=== PATIENT | female | born 1945 | race Caucasian/White ===

== ENCOUNTER 2016-11-04 15:35 | Inpatient (IN) | payer OTHER, MEDICARE ==
[~2016-11-04] VITALS: Ht 162.6 cm; Wt 48.2 kg
[2016-11-04] VITALS (7 sets, daily range): BP systolic 151–185; BP diastolic 46–93; PULSE 60–86; RESP 12–20; TEMP 98.2–99.9; O2SAT 90–100
[~2016-11-04 15:35] MED LIST: ASPI325T PO; ATOR20TA PO; CLIN1CAP6 PO; CYAN100017 PO; D32000CA PO; HYDR12.56 PO; LACT PO; LETR2.5T PO; LISI10 PO; LORA10 PO; NEXI40CA PO; STOO100T PO; metoprolol PO
--- NOTE | 2016-11-04 16:27 | PD ---
HPI Chief Complaint: Skin Problem Time Seen by Provider: 16:13 Travel History International Travel<30 days: No Contact w/Intl Traveler<30days: No Traveled to known affect area: No History of Present Illness HPI Patient is a 71-year-old female with history of breast cancer and lymphedema from her breast cancer and cognitive impairment secondary TIAs, presents to emergency room with complaints of cellulitis. Patient's reports that an hour prior to coming to the emergency room, he noticed increased redness to patient's right upper extremity. Reports no fevers or chills. Reports that she has been acting like her normal self, she has been eating and drinking and has not had any complaints. Reports concern as the redness has progressed fairly quickly over the past hour, reports that the last time she had cellulitis , she became very sick and became septic and required admission to the hospital for this. Patient's was concerned that if her cellulitis progresses, she will eventually become very weak and lethargic. Patient's reports that she has been acting at her baseline at this time, patient with no complaints as well. Patient reports a tetanus is not up-to-date. PFSH Past Medical History Arthritis: Yes Cancer: Yes (R breast) Cardiovascular Problems: Yes (HTN) Chemotherapy: Yes (28 YRS AGO FOR BREAST CA) Cerebrovascular Accident: Yes (TIAS UNKNOWN DATES) Endocrine: No Gastrointestinal Disorders: Yes GERD: Yes (GERD) Genitourinary: No Hypertension: Yes Immune Disorder: No Musculoskeletal: Yes Neurologic: No Psychiatric: Yes (Dementia) Reproductive: No Respiratory: No Radiation Therapy: Yes ?: Not Past Surgical History Abdominal Surgery: No AICD: No Cardiac Surgery: No Ear Surgery: No Endocrine Surgery: No Eye Surgery: Yes (cateracts) Genitourinary Surgery: No Gynecologic Surgery: No Insulin Pump: No Joint Replacement: Yes Oral Surgery: No Pacemaker: No Thoracic Surgery: No Other Surgery: Yes (rt masectomy ) Family History Family History: Negative Social History Alcohol Use: No Tobacco Use: No Substance Use: No Allergies-Medications (Allergen,Severity, Reaction): Coded Allergies: Demerol (Verified Allergy, Intermediate, MAKES MIND FUZZY, 11/04/16) Vancomycin (Verified Allergy, Unknown, 11/04/16) Reported Meds & Prescriptions Reported Meds & Active Scripts Active Probiotic (Lactobacillus Acidophilus) 1 Cap Cap 1 Cap PO TIDAC 10 Days Clindamycin (Clindamycin HCl) 300 Mg Cap 300 Mg PO Q6H 10 Days Review of Systems General / Constitutional: No: Fever Eyes: No: Visual changes HENT: No: Headaches Cardiovascular: No: Chest Pain or Discomfort Respiratory: No: Shortness of Breath Gastrointestinal: No: Abdominal Pain Genitourinary: No: Dysuria Musculoskeletal: No: Pain Skin: Positive Other (redness to right upper extremity), No Rash Neurologic: No: Weakness Psychiatric: No: Depression Endocrine: No: Polydipsia Hematologic/Lymphatic: No: Easy Bruising Physical Exam Narrative GENERAL: No acute distress, nontoxic SKIN: Warm and dry. HEAD: Atraumatic. Normocephalic. EYES: Pupils equal and round. No scleral icterus. No injection or drainage. ENT: No nasal bleeding or discharge. Mucous membranes pink and moist. NECK: Trachea midline. No JVD. CARDIOVASCULAR: Regular rate and rhythm. No murmur appreciated. RESPIRATORY: No accessory muscle use. Clear to auscultation. Breath sounds equal bilaterally. GASTROINTESTINAL: Abdomen soft, non-tender, nondistended. Hepatic and splenic margins not palpable. MUSCULOSKELETAL: No obvious deformities. No clubbing. No cyanosis. Patient with +1 edema to right upper extremity, patient with increased circumferential redness and erythema from right wrist to right shoulder. There is no petechiae or purpura on evaluation. Patient has appropriate pulses to right upper extremity as well as left upper extremity. There is no obvious wounds or bug bites or open skin sores seeping wounds. Data Data Last Documented VS Vital Signs Date Time Temp Pulse Resp B/P Pulse Ox O2 Delivery O2 Flow Rate FiO2 11/04/16 18:19 84 20 185/54 95 11/04/16 15:41 99.9 Orders Complete Blood Count With Diff (11/04/16 16:18) Comprehensive Metabolic Panel (11/04/16 16:18) Blood Culture (11/04/16 16:18) Iv Access Insert/Monitor (11/04/16 16:18) Vancomycin Inj (Vancomycin Inj) (11/04/16 16:30) Tetanus/Diphtheria Tox Adult (Tetanus/Di (11/04/16 16:30) Clindamycin Inj (Cleocin Inj) (11/04/16 17:45) Diphenhydramine Inj (Benadryl Inj) (11/04/16 17:45) Labs Laboratory Tests Test 11/04/16 11/04/16 16:25 17:17 White Blood Count 12.5 TH/MM3 Red Blood Count 4.51 MIL/MM3 Hemoglobin 13.5 GM/DL Hematocrit 40.3 % Mean Corpuscular Volume 89.5 FL Mean Corpuscular Hemoglobin 29.9 PG Mean Corpuscular Hemoglobin 33.5 % Concent Red Cell Distribution Width 13.0 % Platelet Count 316 TH/MM3 Mean Platelet Volume 9.2 FL Neutrophils (%) (Auto) 84.3 % Lymphocytes (%) (Auto) 6.3 % Monocytes (%) (Auto) 6.6 % Eosinophils (%) (Auto) 1.3 % Basophils (%) (Auto) 1.5 % Neutrophils # (Auto) 10.5 TH/MM3 Lymphocytes # (Auto) 0.8 TH/MM3 Monocytes # (Auto) 0.8 TH/MM3 Eosinophils # (Auto) 0.2 TH/MM3 Basophils # (Auto) 0.2 TH/MM3 CBC Comment DIFF FINAL Differential Comment Sodium Level 134 MEQ/L Potassium Level 4.0 MEQ/L Chloride Level 99 MEQ/L Carbon Dioxide Level 25.5 MEQ/L Anion Gap 10 MEQ/L Blood Urea Nitrogen 15 MG/DL Creatinine 0.80 MG/DL Estimat Glomerular Filtration 70 ML/MIN Rate Random Glucose 100 MG/DL Calcium Level 8.3 MG/DL Total Bilirubin 0.4 MG/DL Aspartate Amino Transf 19 U/L (AST/SGOT) Alanine Aminotransferase 32 U/L (ALT/SGPT) Alkaline Phosphatase 96 U/L Total Protein 6.9 GM/DL Albumin 3.4 GM/DL [facility] Medical Decision Making Medical Screen Exam Complete: Yes Emergency Medical Condition: Yes Interpretation(s) Vital Signs Date Time Temp Pulse Resp B/P Pulse Ox O2 Delivery O2 Flow Rate FiO2 11/04/16 15:41 99.9 69 16 173/72 100 Differential Diagnosis Cellulitis, lymphedema, rash Narrative Course Patient is a 71-year-old female with history of breast cancer and history of right-sided mastectomy, presents to emergency room with complaints of right upper extremity erythema and edema. Symptoms began 1 hour prior to presentation to the emergency room. Patient with history of sepsis from cellulitis, has been noticed that her arm became swelling and became concerned as last time she presented with the symptoms, she became very sick. IV line established, CBC, BMP, blood cultures ordered. Patient's tetanus was updated today, will give a dose of IV vancomycin. Patient well-appearing at this time, vital signs stable. If all labs and all studies are unremarkable, plan to discharge home on oral antibiotics with strict instructions to follow-up with PCP in 48 hours Pt develop rash around IV site with vanco administration, vanco d/c'ed and clinda ordered, benadryl ordered as it appears that pt has an allergic reaction to vanco, pt with no airway compromise at this time CBC & BMP Diagram 11/04/16 16:25 11/04/16 17:17 wbc: 12.5 hgb: 13.5 hct: 40.3 Plt: 316 sodium: 134 cl: 99 bun: 15 creatine: 0.8 pt reports that she is feeling better, signs and symptoms of when to return to ER reviewed with patient and in detail pt will return to ER if symptoms progress or worsen pt and thankful for care Diagnosis Primary Impression: Cellulitis Qualified Code: L03.113 - Cellulitis of right upper extremity Patient Instructions: General Instructions Additional Instructions: Please follow up with [facility] from today Return to ER as needed Please return to emergency room immediately if symptoms progress or worsen Follow-up with your primary care doctor as soon as possible Med/Other Pt SpecificInfo: Prescription(s) given Scripts Lactobacillus Acidophilus (Probiotic)1 Cap Cap1 Cap PO TIDAC 10 Days Ref 0 Prov:Priscilla Murphy DO 11/04/16 Clindamycin 300 Mg [id number] Mg PO Q6H 10 Days Ref 0 Prov:Priscilla Murphy DO 11/04/16 Disposition: 01 DISCHARGE HOME Condition: Stable Priscilla Murphy DO Nov 04, 2016 16:27
[2016-11-04] MEDS ORDERED: TETANUS/DIPHTHERIA TOXOID ADULT 0.5 ML VIAL IM ONE (16:30)
[2016-11-04] MEDS ORDERED: VANCOMYCIN INJ 900 MG in SODIUM CHLOR 0.9% 250 ML INJ 250 ML IV ONE (16:30)
[2016-11-04 17:04] LABS: AUTOMATED NEUTROPHIL # 10.5 TH/MM3 (1.8-7.7); BASOPHIL # 0.2 TH/MM3 (0-0.2); BASOPHIL % 1.5 % (0.0-2.0); EOSINOPHIL # 0.2 TH/MM3 (0-0.4); EOSINOPHIL % 1.3 % (0.0-4.0); HEMATOCRIT 40.3 % (35.0-46.0); HEMO FLAGS DIFF FINAL; LYMPH % 6.3 % (9.0-44.0); LYMPHOCYTE # 0.8 TH/MM3 (1.0-4.8); MEAN CELL VOLUME 89.5 FL (80.0-100.0); MEAN CORPUSCULAR HEMOGLOBIN 29.9 PG (27.0-34.0); MEAN CORPUSCULAR HGB CONC 33.5 % (32.0-36.0); MONO % 6.6 % (0.0-8.0); NEUT % 84.3 % (16.0-70.0); PLATELET COUNT 316 TH/MM3 (150-450); RED BLOOD COUNT 4.51 MIL/MM3 (4.00-5.30); WHITE BLOOD COUNT 12.5 TH/MM3 (4.0-11.0)
[2016-11-04] MEDS ORDERED: diphenhydrAMINE HCL 50 MG/ML VIAL IV PUSH ONE (17:45)
[2016-11-04] MEDS ORDERED: CLINDAMYCIN INJ 600 MG in SODIUM CHLORIDE 0.9% INJ 100 ML IV ONE (17:45)
[2016-11-04 17:50] LABS: CHLORIDE 99 MEQ/L (98-107); SODIUM (NA) 134 MEQ/L (136-145)
[2016-11-04 17:54] LABS: ANION GAP 10 MEQ/L (5-15); BICARBONATE 25.5 MEQ/L (21.0-32.0); BLOOD UREA NITROGEN 15 MG/DL (7-18)
[2016-11-04 17:57] LABS: ALT (GPT) 32 U/L (10-53); AST (GOT) 19 U/L (15-37); GLOMERULAR FILTRATION RATE 70 ML/MIN (>89)
[2016-11-04 17:59] LABS: TOTAL BILIRUBIN ADULT 0.4 MG/DL (0.2-1.0)
[2016-11-04 18:00] LABS: ALKALINE PHOSPHATASE 96 U/L (45-117)
[2016-11-04] MEDS ORDERED: LACTCAP8 PO (18:53)
[2016-11-04] MEDS ORDERED: CLIN1CAP6 PO (18:53)
[2016-11-04] MEDS ORDERED: BISACODYL 10 MG SUPP PR PRN (19:30)
[2016-11-04] MEDS ORDERED: ONDANSETRON HCL 4 MG/2 ML VIAL IVP PRN (19:30)
[2016-11-04] MEDS ORDERED: ACETAMINOPHEN 325 MG TAB PO PRN (19:30)
[2016-11-04] MEDS ORDERED: ACETAMINOPHEN/HYDROcodone 325 MG/10 MG TAB PO PRN (19:30)
[2016-11-04] MEDS ORDERED: ACETAMINOPHEN/HYDROcodone 325 MG/5 MG TAB PO PRN (19:30)
[2016-11-04] MEDS ORDERED: SODIUM CHLORIDE 0.9% FLUSH 5 ML FLUSH FLUSH PRN (19:30)
[2016-11-04] MEDS: CEFEPIME INJ 1,000 MG in SODIUM CHLORIDE 0.9% INJ 100 ML IV SCH (20:24)
[2016-11-04] MEDS: SODIUM CHLOR 0.9% 1000 ML INJ 1,000 ML IV SCH (21:25)
[2016-11-04] MEDS: SODIUM CHLORIDE 0.9% FLUSH 5 ML FLUSH FLUSH SCH (21:25)
[2016-11-05] VITALS: BP 142/69; PULSE 55; RESP 18; TEMP 98.1; O2SAT 97
[2016-11-05] MEDS: CLINDAMYCIN INJ 900 MG in SODIUM CHLORIDE 0.9% INJ 100 ML IV SCH ×2 (01:45→10:00)
[2016-11-05 04:00] VITALS: BP 139/67; PULSE 53; RESP 16; TEMP 98.3; O2SAT 98
[2016-11-05] MEDS: SODIUM CHLOR 0.9% 1000 ML INJ 1,000 ML IV SCH (06:14)
[2016-11-05] MEDS: SODIUM CHLORIDE 0.9% FLUSH 5 ML FLUSH FLUSH SCH (07:57)
[2016-11-05] MEDS: CEFEPIME INJ 1,000 MG in SODIUM CHLORIDE 0.9% INJ 100 ML IV SCH ×2 (07:57→08:00)
[2016-11-05 08:00] VITALS: BP 170/55; PULSE 54; RESP 16; TEMP 96.6; O2SAT 100
[2016-11-05 08:01] LABS: AUTOMATED NEUTROPHIL # 3.7 TH/MM3 (1.8-7.7); BASOPHIL % 0.6 % (0.0-2.0); EOSINOPHIL # 0.2 TH/MM3 (0-0.4); EOSINOPHIL % 3.1 % (0.0-4.0); HEMATOCRIT 36.1 % (35.0-46.0); HEMO FLAGS DIFF FINAL; LYMPH % 22.4 % (9.0-44.0); LYMPHOCYTE # 1.4 TH/MM3 (1.0-4.8); MEAN CELL VOLUME 90.3 FL (80.0-100.0); MEAN CORPUSCULAR HEMOGLOBIN 30.3 PG (27.0-34.0); MEAN CORPUSCULAR HGB CONC 33.6 % (32.0-36.0); MONO % 15.6 % (0.0-8.0); NEUT % 58.3 % (16.0-70.0); PLATELET COUNT 322 TH/MM3 (150-450); RED CELL DISTRIBUTION WIDTH 12.6 % (11.6-17.2); WHITE BLOOD COUNT 6.3 TH/MM3 (4.0-11.0)
[2016-11-05 08:04] LABS: CHLORIDE 101 MEQ/L (98-107); POTASSIUM 3.6 MEQ/L (3.5-5.1); SODIUM (NA) 137 MEQ/L (136-145)
[2016-11-05 08:10] VITALS: PULSE 61
[2016-11-05 08:10] LABS: ANION GAP 9 MEQ/L (5-15); BICARBONATE 26.9 MEQ/L (21.0-32.0); BLOOD UREA NITROGEN 12 MG/DL (7-18)
[2016-11-05 08:12] LABS: ALT (GPT) 27 U/L (10-53)
[2016-11-05 08:13] LABS: AST (GOT) 18 U/L (15-37); GLOMERULAR FILTRATION RATE 83 ML/MIN (>89)
[2016-11-05 08:14] LABS: TOTAL BILIRUBIN ADULT 0.5 MG/DL (0.2-1.0)
[2016-11-05 08:15] LABS: ALKALINE PHOSPHATASE 80 U/L (45-117)
[2016-11-05] MEDS ORDERED: HYDR12.57 PO (11:20)
[2016-11-05] MEDS ORDERED: ASPI325T PO (11:20)
[2016-11-05] MEDS ORDERED: VITA10003 PO (11:20)
[2016-11-05] MEDS ORDERED: [UNRECOGNIZED DRUG - CODE] PO (11:20)
[2016-11-05] MEDS ORDERED: ATOR20TA15 PO (11:20)
[2016-11-05] MEDS ORDERED: LETR2.5T PO (11:20)
[2016-11-05] MEDS ORDERED: NEXI40CA PO (11:20)
[2016-11-05] MEDS ORDERED: METO50TA11 PO (11:20)
[2016-11-05] MEDS ORDERED: STOO100C (11:20)
[2016-11-05 12:00] VITALS: BP 142/63; PULSE 56; RESP 16; TEMP 97.7; O2SAT 97
--- NOTE | 2016-11-05 14:19 | HHI.HP ---
[facility] Chuck Cota MD Admission Diagnosis Right arm cellulitis Diagnoses: Chief Complaint: Right upper extremity erythema Travel History International Travel<30 Days: No Contact w/Intl Traveler <30 Da: No Traveled to Known Affected Are: No History of Present Illness Patient is a 71-year-old female with a history of lymphedema in the right arm secondary to breast cancer and mastectomy. Patient had increasing redness and edema in the right arm. There were no fevers or chills. She had a mild leukocytosis and was observed overnight for treatment of this after antibiotics in the emergency room were given. Remarkably the patient is improved. Patient says her arm is much better overnight. No fevers or chills. Leukocytosis is better. She would like to go home Review of Systems ROS Limitations: Poor Historian (due to dementia) Constitutional: DENIES: Diaphoretic episodes, Fatigue, Fever, Weight gain, Weight loss, Chills, Dizziness, Change in appetite, Night Sweats Endocrine: DENIES: Abnorml menstrual pattern, Heat/cold intolerance, Polydipsia , Polyuria, Polyphagia Eyes: DENIES: Blurred vision, Diplopia, Eye inflammation, Eye pain, Vision loss , Photosensitivity, Double Vision Ears, nose, mouth, throat: DENIES: Tinnitus, Hearing loss, Vertigo, Nasal discharge, Oral lesions, Throat pain, Hoarseness, Ear Pain, Running Nose, Epistaxis, Sinus Pain, Toothache, Odynophagia Respiratory: DENIES: Apneas, Cough, Snoring, Wheezing, Hemoptysis, Sputum production, Shortness of breath Cardiovascular: DENIES: Chest pain, Palpitations, Syncope, Dyspnea on Exertion , PND, Lower Extremity Edema, Orthopnea, Claudication Gastrointestinal: DENIES: Abdominal pain, Black stools, Bloody stools, Constipation, Diarrhea, Nausea, Vomiting, Difficulty Swallowing, Anorexia Genitourinary: DENIES: Abnormal vaginal bleeding, Dysmenorrhea, Dyspareunia, Sexual dysfunction, Urinary frequency, Urinary incontinence, Urgency, Hematuria , Dysuria, Nocturia, Vaginal discharge Musculoskeletal: DENIES: Joint pain, Muscle aches, Stiffness, Joint Swelling, Back pain, Neck pain Integumentary: DENIES: Abnormal pigmentation, Pruritus, Rash, Nail changes, Breast masses, Breast skin changes, Nipple discharge Hematologic/lymphatic: DENIES: Bruising, Lymphadenopathy Immunologic/allergic: DENIES: Eczema, Urticaria Neurologic: DENIES: Abnormal gait, Headache, Localized weakness, Paresthesias, Seizures, Speech Problems, Tremor, Poor Balance Psychiatric: COMPLAINS OF: Confusion (at baseline due to dementia), DENIES: Anxiety, Mood changes, Depression, Hallucinations, Agitation, Suicidal Ideation , Homicidal Ideation, Delusions Past Family Social History Past Medical History Breast cancer with right upper extremity lymphedema Vascular dementia Past Surgical History Mastectomy Cataracts Reported Medications Reviewed in the medical record Allergies: Coded Allergies: Demerol (Verified Allergy, Intermediate, MAKES MIND FUZZY, 11/04/16) Vancomycin (Verified Allergy, Unknown, 11/04/16) Active Ordered Medications Reviewed in the medical record Family History Family history of hypertension Social History , , no tobacco or alcohol shoes Physical Exam Vital Signs Vital Signs Date Time Temp Pulse Resp B/P Pulse Ox O2 Delivery O2 Flow Rate FiO2 11/05/16 12:00 97.7 56 16 142/63 97 11/05/16 08:00 96.6 54 16 170/55 100 11/05/16 04:00 98.3 53 16 139/67 98 11/05/16 00:00 98.1 55 18 142/69 97 11/04/16 21:31 98.2 65 12 167/62 90 11/04/16 21:30 60 11/04/16 19:54 77 20 157/59 95 11/04/16 18:19 84 20 185/54 95 11/04/16 17:39 86 20 151/93 96 11/04/16 17:03 64 20 151/46 96 11/04/16 15:41 99.9 69 16 173/72 100 Physical Exam GENERAL: This is a well-nourished, well-developed patient, in no apparent distress. SKIN: No rashes, ecchymoses or lesions. Cool and dry. HEAD: Atraumatic. Normocephalic. No temporal or scalp tenderness. EYES: Pupils equal round and reactive. Extraocular motions intact. No scleral icterus. No injection or drainage. ENT: Nose without bleeding, purulent drainage or septal hematoma. Throat without erythema, tonsillar hypertrophy or exudate. Uvula midline. Airway patent. NECK: Trachea midline. No JVD or lymphadenopathy. Supple, nontender, no meningeal signs. CARDIOVASCULAR: Regular rate and rhythm without murmurs, gallops, or rubs. RESPIRATORY: Clear to auscultation. Breath sounds equal bilaterally. No wheezes , rales, or rhonchi. GASTROINTESTINAL: Abdomen soft, non-tender, nondistended. No hepato-splenomegaly , or palpable masses. No guarding. MUSCULOSKELETAL: Extremities without clubbing, cyanosis, or edema. No joint tenderness, effusion, or edema noted. No calf tenderness. Negative Homans sign bilaterally. NEUROLOGICAL: Awake and alert. Cranial nerves II through XII intact. Motor and sensory grossly within normal limits. Five out of 5 muscle strength in all muscle groups. Normal speech. Laboratory Laboratory Tests Test 11/04/16 11/04/16 11/05/16 16:25 17:17 06:40 White Blood Count 12.5 6.3 Red Blood Count 4.51 4.00 Hemoglobin 13.5 12.1 Hematocrit 40.3 36.1 Mean Corpuscular Volume 89.5 90.3 Mean Corpuscular Hemoglobin 29.9 30.3 Mean Corpuscular Hemoglobin 33.5 33.6 Concent Red Cell Distribution Width 13.0 12.6 Platelet Count 316 322 Mean Platelet Volume 9.2 8.7 Neutrophils (%) (Auto) 84.3 58.3 Lymphocytes (%) (Auto) 6.3 22.4 Monocytes (%) (Auto) 6.6 15.6 Eosinophils (%) (Auto) 1.3 3.1 Basophils (%) (Auto) 1.5 0.6 Neutrophils # (Auto) 10.5 3.7 Lymphocytes # (Auto) 0.8 1.4 Monocytes # (Auto) 0.8 1.0 Eosinophils # (Auto) 0.2 0.2 Basophils # (Auto) 0.2 0.0 CBC Comment DIFF FINAL DIFF FINAL Differential Comment Sodium Level 134 137 Potassium Level 4.0 3.6 Chloride Level 99 101 Carbon Dioxide Level 25.5 26.9 Anion Gap 10 9 Blood Urea Nitrogen 15 12 Creatinine 0.80 0.69 Estimat Glomerular Filtration 70 83 Rate Random Glucose 100 83 Calcium Level 8.3 8.5 Total Bilirubin 0.4 0.5 Aspartate Amino Transf 19 18 (AST/SGOT) Alanine Aminotransferase 32 27 (ALT/SGPT) Alkaline Phosphatase 96 80 Total Protein 6.9 6.4 Albumin 3.4 3.2 Date/Time Procedure Status Source Growth 11/04/16 16:25 Aerobic Blood Culture - Preliminary Resulted Blood Peripheral NO GROWTH IN 1 DAY 11/04/16 16:25 Anaerobic Blood Culture - Preliminary Resulted Blood Peripheral NO GROWTH IN 1 DAY Result Diagram: 11/05/16 0640 11/05/16 0640 Assessment and Plan Problem List: (1) Cellulitis ICD Code: L03.90 Status: Acute Plan: Continue clindamycin by mouth Follow-up with primary care provider Leukocytosis improved Erythema and edema improved (2) Dementia ICD Code: F03.90 Status: Acute Plan: Moderate dementia. Patient will continue with continue care by her healthcare surrogate which is her spouse. Assessment and Plan Discharge home Activity unrestricted Diet heart healthy Code Status DNR Problem Qualifiers (1) Cellulitis: Qualified Code: L03.113 - Cellulitis of right upper extremity Bozena Taveras MD Nov 05, 2016 14:19
--- NOTE | 2016-11-05 14:22 | HHI.DCPOC ---
Discharge Care Plan Diagnosis: (1) Cellulitis Goals to Promote Your Health * To prevent worsening of your condition and complications * To maintain your health at the optimal level Directions to Meet Your Goals Take your medications as prescribed Follow your dietary instruction Follow activity as directed Keep your appointments as scheduled Take your immunizations and boosters as scheduled If your symptoms worsen call your PCP, if no PCP go to Urgent Care Center or Emergency Room Smoking is Dangerous to Your Health. Avoid second hand smoke Call the 24-hour hour crisis hotline for domestic abuse at Bozena Taveras MD Nov 05, 2016 14:22
[2016-11-05] MEDS ORDERED: LACTCAP8 PO (15:14)
[2016-11-05] MEDS ORDERED: CLIN1CAP6 PO (15:14)
== END 2016-11-05 15:53 | disposition home or self-care (01) | DRG 603 ==
LOC: PHED 15:35 → PHEDA 19:16 → PH3A 20:59
PROVIDERS: ADMIT Hospitalist; ATTEND Hospitalist
DX: L03.113 Cellulitis of right upper limb (principal); F01.50 Vascular dementia, unspecified severity, without behavioral disturbance, psychotic disturbance, mood disturbance, and anxiety; I10 Essential (primary) hypertension; I97.2 Postmastectomy lymphedema syndrome; Z85.3 Personal history of malignant neoplasm of breast; Z86.73 Personal history of transient ischemic attack (TIA), and cerebral infarction without residual deficits; Z92.21 Personal history of antineoplastic chemotherapy; Z88.1 Allergy status to other antibiotic agents; Z88.5 Allergy status to narcotic agent
CPT/HCPCS: 80053; 85025; 87040; 90471; 90714; 96365; 96367; 96375; J0692; J1200; J3370; J7030; J7050

== ENCOUNTER 2016-11-14 17:18 | Inpatient (IN) | payer OTHER, MEDICARE ==
[~2016-11-14] VITALS: Ht 162.6 cm; Wt 60.4 kg
[~2016-11-14 17:18] MED LIST changes: -ATOR20TA PO; +ATOR20TA15 PO; -CYAN100017 PO; -D32000CA PO; -HYDR12.56 PO; +HYDR12.57 PO; -LACT PO; +LACTCAP8 PO; -LISI10 PO; -LORA10 PO; +METO50TA11 PO; +STOO100C; -STOO100T PO; +VITA10003 PO; +[UNRECOGNIZED DRUG - CODE] PO; -metoprolol PO
[2016-11-14 17:32] VITALS: PULSE 65; RESP 16; TEMP 99.5; O2SAT 99
[2016-11-14] MEDS ORDERED: PIPERACIL-TAZO 4.5 GM PREMIX 100 ML IV STA (17:46)
[2016-11-14 17:50] VITALS: BP 193/71
--- NOTE | 2016-11-14 17:53 | PD ---
HPI Chief Complaint: Skin Problem Time Seen by Provider: 17:37 Travel History International Travel<30 days: No Contact w/Intl Traveler<30days: No Traveled to known affect area: No History of Present Illness HPI This 71-year-old female presents with complaint of redness of her right arm. She had a mastectomy, chemotherapy and radiation for breast cancer 27 years ago. Since then she has had lymphedema of her right arm. She had an ultrasound in July 2016 which was negative for DVT. She was seen in the emergency department on November 04 with redness of the arm. She was given Zosyn and vancomycin. She had a reaction to the vancomycin was stopped. Clindamycin was also given. She got better overnight and was released after one day of hospitalization. The arm seemed okay. She was continued on the clindamycin and wouldn't finish her course of clindamycin tomorrow. Her says that today she redness has returned. He is not aware of fever or chills. She is not complaining of pain. She does have a history of cognitive impairment PFSH Past Medical History Arthritis: Yes Autoimmune Disease: No Anxiety: No Depression: No Heart Rhythm Problems: No Cancer: Yes (R breast) Cardiovascular Problems: Yes (HTN) High Cholesterol: No Chemotherapy: Yes (28 YRS AGO FOR BREAST CA) Congestive Heart Failure: No Cerebrovascular Accident: Yes Diabetes: No Diminished Hearing: No Endocrine: No Gastrointestinal Disorders: Yes GERD: Yes (GERD) Genitourinary: No Hiatal Hernia: No Hypertension: Yes Immune Disorder: No Musculoskeletal: Yes Neurologic: Yes (dementia) Psychiatric: Yes (Dementia) Reproductive: No Respiratory: No Migraines: No Radiation Therapy: Yes Seizures: No Thyroid Disease: No Ulcer: No ?: Not Past Surgical History Abdominal Surgery: No AICD: No Arteriovenous Shunt: No Cardiac Surgery: No Ear Surgery: No Endocrine Surgery: No Eye Surgery: Yes (cateracts) Genitourinary Surgery: No Gynecologic Surgery: No Insulin Pump: No Joint Replacement: Yes Oral Surgery: No Pacemaker: No Thoracic Surgery: No Other Surgery: Yes (rt masectomy ) Social History Alcohol Use: No Tobacco Use: No Substance Use: No Allergies-Medications (Allergen,Severity, Reaction): Coded Allergies: Demerol (Verified Allergy, Intermediate, MAKES MIND FUZZY, 11/14/16) Vancomycin (Verified Allergy, Unknown, 11/14/16) Reported Meds & Prescriptions Reported Meds & Active Scripts Active Probiotic (Lactobacillus Acidophilus) 1 Cap Cap 1 Cap PO TIDAC 10 Days Clindamycin (Clindamycin HCl) 300 Mg Cap 300 Mg PO Q6H 10 Days Reported Stool Softener (Docusate Sodium) 100 Mg Cap BID Vitamin D-3 (Cholecalciferol) 1,000 Unit Tab 2,000 Units PO DAILY B-12 (Cobalamine Combinations) 100-5,000 Mcg Subl 1,000 Mcg PO DAILY Aspirin 325 Mg Tab 325 Mg PO DAILY Atorvastatin (Atorvastatin Calcium) 20 Mg Tab 20 Mg PO HS Metoprolol Succinate ER 24 HR (Metoprolol Succinate) 50 Mg Tab 50 Mg PO DAILY Hydrochlorothiazide 12.5 Mg Cap 12.5 Mg PO DAILY Nexium (Esomeprazole DR) 40 Mg Capdr 40 Mg PO DAILY Letrozole 2.5 Mg Tab PO DAILY Review of Systems General / Constitutional: No: Fever, Chills Eyes: No: Diploplia HENT: No: Headaches Cardiovascular: No: Chest Pain or Discomfort Respiratory: No: Cough Gastrointestinal: No: Nausea Genitourinary: No: Urgency, Frequency Musculoskeletal: No: Myalgias Skin: Positive Rash Hematologic/Lymphatic: No: Easy Bruising Physical Exam Narrative GENERAL: Well-developed female SKIN: Warm and dry. Return to the skin of the right arm from the wrist and area above the elbow. There is no purulent drainage. It is warm to palpation. I do not feel any adenopathy. There has been a right mastectomy HEAD: Atraumatic. Normocephalic. EYES: Pupils equal and round. No scleral icterus. No injection or drainage. ENT: No nasal bleeding or discharge. Mucous membranes pink and moist. NECK: Trachea midline. No JVD. CARDIOVASCULAR: Regular rate and rhythm. No murmur appreciated. RESPIRATORY: No accessory muscle use. Clear to auscultation. Breath sounds equal bilaterally. GASTROINTESTINAL: Abdomen soft, non-tender, nondistended. Hepatic and splenic margins not palpable. MUSCULOSKELETAL: No obvious deformities. No clubbing. No cyanosis. No edema. NEUROLOGICAL: Awake and alert. No obvious cranial nerve deficits. Motor grossly within normal limits. Speech is limited PSYCHIATRIC: ; insight and judgment are limited, her answers most questions Data Data Last Documented VS Vital Signs Date Time Temp Pulse Resp B/P Pulse Ox O2 Delivery O2 Flow Rate FiO2 1/24/17 18:37 96 Room Air 11/14/16 17:50 193/71 11/14/16 17:32 99.5 65 16 Orders Complete Blood Count With Diff (11/14/16 17:46) Comprehensive Metabolic Panel (11/14/16 17:46) Urinalysis - C+S If Indicated (11/14/16 17:46) Blood Culture (11/14/16 17:46) Blood Glucose (11/14/16 17:46) Ecg Monitoring (11/14/16 17:46) Iv Access Insert/Monitor (11/14/16 17:46) Oximetry (11/14/16 17:46) Oxygen Administration (11/14/16 17:46) Piperacil-Tazo 4.5 Gm Premix (Zosyn 4.5 (11/14/16 17:46) Sodium Chlor 0.9% 1000 Ml Inj (Ns 1000 M (11/14/16 18:00) Admit Order (Ed Use Only) (11/14/16 19:24) Admit To Inpatient (11/14/16 ) Vital Signs (Adult) Q4H (11/14/16 19:24) Activity Oob With Assistance (11/14/16 19:24) 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 .CONTINUOUS (11/14/16 19:24) Diet Heart Healthy (11/15/16 Breakfast) Sodium Chloride 0.9% Flush (Ns Flush) (11/14/16 19:30) Sodium Chloride 0.9% Flush (Ns Flush) (11/14/16 21:00) Basic Metabolic Panel (Bmp) (11/15/16 06:00) Complete Blood Count With Diff (11/15/16 06:00) Case Management Consult (11/14/16 19:24) Naloxone Inj (Narcan Inj) (11/14/16 19:30) Inpatient Certification (11/14/16 ) Labs Laboratory Tests Test 11/14/16 18:10 White Blood Count 13.3 TH/MM3 Red Blood Count 4.47 MIL/MM3 Hemoglobin 13.9 GM/DL Hematocrit 40.4 % Mean Corpuscular Volume 90.2 FL Mean Corpuscular Hemoglobin 31.1 PG Mean Corpuscular Hemoglobin 34.5 % Concent Red Cell Distribution Width 12.6 % Platelet Count 422 TH/MM3 Mean Platelet Volume 8.4 FL Neutrophils (%) (Auto) 81.0 % Lymphocytes (%) (Auto) 5.5 % Monocytes (%) (Auto) 7.4 % Eosinophils (%) (Auto) 1.4 % Basophils (%) (Auto) 4.7 % Neutrophils # (Auto) 10.8 TH/MM3 Lymphocytes # (Auto) 0.7 TH/MM3 Monocytes # (Auto) 1.0 TH/MM3 Eosinophils # (Auto) 0.2 TH/MM3 Basophils # (Auto) 0.6 TH/MM3 CBC Comment AUTO DIFF Differential Total Cells 100 Counted Neutrophils % (Manual) 78 % Lymphocytes % 12 % Monocytes % 6 % Eosinophils % 3 % Basophils % 1 % Neutrophils # (Manual) 10.4 TH/MM3 Nucleated Red Blood Cells 1 /100 WBC Differential Comment FINAL DIFF MANUAL Platelet Estimate NORMAL Platelet Morphology Comment CLUMPED Red Cell Morphology Comment NORMAL Sodium Level 134 MEQ/L Potassium Level 4.8 MEQ/L Chloride Level 97 MEQ/L Carbon Dioxide Level 27.2 MEQ/L Anion Gap 10 MEQ/L Blood Urea Nitrogen 18 MG/DL Creatinine 0.77 MG/DL Estimat Glomerular Filtration 73 ML/MIN Rate Random Glucose 82 MG/DL Calcium Level 8.6 MG/DL Total Bilirubin 0.4 MG/DL Aspartate Amino Transf 32 U/L (AST/SGOT) Alanine Aminotransferase 30 U/L (ALT/SGPT) Alkaline Phosphatase 99 U/L Total Protein 7.6 GM/DL Albumin 3.8 GM/DL MDM Medical Decision Making Medical Screen Exam Complete: Yes Emergency Medical Condition: Yes Medical Record Reviewed: Yes Differential Diagnosis Differential includes cellulitis the left arm. Narrative Course This developed while the patient is on clindamycin so represents a treatment failure. White count is elevated at 13,000 Diagnosis Primary Impression: Cellulitis of right arm Admitting Information Admitting Physician Requests: Admit Srinivasan Madrigal MD Nov 14, 2016 17:53
[2016-11-14 18:28] LABS: AUTOMATED NEUTROPHIL # 10.8 TH/MM3 (1.8-7.7); BASOPHIL # 0.6 TH/MM3 (0-0.2); BASOPHIL % 4.7 % (0.0-2.0); EOSINOPHIL # 0.2 TH/MM3 (0-0.4); EOSINOPHIL % 1.4 % (0.0-4.0); HEMATOCRIT 40.4 % (35.0-46.0); LYMPH % 5.5 % (9.0-44.0); LYMPHOCYTE # 0.7 TH/MM3 (1.0-4.8); MEAN CELL VOLUME 90.2 FL (80.0-100.0); MEAN CORPUSCULAR HEMOGLOBIN 31.1 PG (27.0-34.0); MEAN CORPUSCULAR HGB CONC 34.5 % (32.0-36.0); MONO % 7.4 % (0.0-8.0); PLATELET COUNT 422 TH/MM3 (150-450); RED BLOOD COUNT 4.47 MIL/MM3 (4.00-5.30); RED CELL DISTRIBUTION WIDTH 12.6 % (11.6-17.2); WHITE BLOOD COUNT 13.3 TH/MM3 (4.0-11.0)
[2016-11-14 18:32] LABS: HEMO FLAGS AUTO DIFF
[2016-11-14 18:37] VITALS: O2SAT 96
[2016-11-14 18:37] LABS: CHLORIDE 97 MEQ/L (98-107); SODIUM (NA) 134 MEQ/L (136-145)
[2016-11-14 18:40] LABS: ANION GAP 10 MEQ/L (5-15); BICARBONATE 27.2 MEQ/L (21.0-32.0)
[2016-11-14 18:41] LABS: BLOOD UREA NITROGEN 18 MG/DL (7-18)
[2016-11-14 18:43] LABS: ALT (GPT) 30 U/L (10-53)
[2016-11-14 18:44] LABS: AST (GOT) 32 U/L (15-37); GLOMERULAR FILTRATION RATE 73 ML/MIN (>89)
[2016-11-14 18:45] LABS: TOTAL BILIRUBIN ADULT 0.4 MG/DL (0.2-1.0)
[2016-11-14] MEDS: SODIUM CHLOR 0.9% 1000 ML INJ 1,000 ML IV SCH (18:45)
[2016-11-14 18:46] LABS: ALKALINE PHOSPHATASE 99 U/L (45-117)
[2016-11-14 19:02] LABS: POTASSIUM 4.8 MEQ/L (3.5-5.1)
[2016-11-14 19:05] LABS: BASOPHILS 1 % (0-2); CORRECTED NUCLEATED RBC 1 /100 WBC (0-0); EOSINOPHILS 3 % (0-4); NEUTROPHIL # MANUAL DIFF 10.4 TH/MM3 (1.8-7.7); PLATELET ESTIMATE SMEAR NORMAL (NORMAL); PLATELET MORPHOLOGY CLUMPED (NORMAL); POLYS (SEG NEUTROPHILS) 78 % (16-70); SCAN/DIFF FINAL DIFF MANUAL; WBC DIFF SAMPLE 100
[2016-11-14 19:30] VITALS: BP 172/76; PULSE 98; RESP 20; TEMP 102.3; O2SAT 96
[2016-11-14] MEDS ORDERED: NALOXONE HCL 0.4 MG/ML AMP IV PRN (19:30)
[2016-11-14] MEDS ORDERED: SODIUM CHLORIDE 0.9% FLUSH 5 ML FLUSH FLUSH PRN (19:30)
[2016-11-14] MEDS ORDERED: LEVOFLOXACIN 750 MG PREMIX INJ 150 ML IV SCH (20:00)
[2016-11-14] MEDS: ATORVASTATIN 20 MG TAB PO SCH (20:11)
[2016-11-14] MEDS ORDERED: ACETAMINOPHEN 325 MG TAB PO ONE (20:15)
[2016-11-14 20:51] LABS: BLOOD, URINE NEG (NEG); GLUCOSE,URINE NEG (NEG); KETONE, URINE NEG (NEG); NITRITE,URINE NEG (NEG)
[2016-11-14 20:58] LABS: METHOD OF COLLECTION CATH; URINE COLOR YELLOW (YELLW/STRAW)
[2016-11-14 21:00] LABS: MUCUS URINE OCC /lpf (OCC)
[2016-11-14] MEDS: SODIUM CHLORIDE 0.9% FLUSH 5 ML FLUSH FLUSH SCH (21:00)
[2016-11-14 21:05] LABS: COMMENT (UR) CATH-CULTURE IND; CULTURE IF INDICATED CATH CULTURE IND
[2016-11-14 22:00] VITALS: BP 148/70; PULSE 68; RESP 24; O2SAT 100
[2016-11-14 23:53] VITALS: BP 129/82; PULSE 64; RESP 20; O2SAT 98
[2016-11-15] VITALS (8 sets, daily range): BP systolic 115–158; BP diastolic 34–65; PULSE 53–58; RESP 14–20; TEMP 97.2–99.3; O2SAT 96–100
[2016-11-15] MEDS: PIPERACIL-TAZO 4.5 GM PREMIX 100 ML IV SCH ×4 (01:29→16:59)
[2016-11-15] MEDS: SODIUM CHLOR 0.9% 1000 ML INJ 1,000 ML IV SCH ×3 (06:14→19:28)
[2016-11-15 06:57] LABS: AUTOMATED NEUTROPHIL # 11.6 TH/MM3 (1.8-7.7); BASOPHIL # 0.6 TH/MM3 (0-0.2); BASOPHIL % 3.7 % (0.0-2.0); EOSINOPHIL # 0.1 TH/MM3 (0-0.4); EOSINOPHIL % 0.6 % (0.0-4.0); HEMATOCRIT 40.8 % (35.0-46.0); HEMO FLAGS AUTO DIFF; LYMPH % 12.5 % (9.0-44.0); LYMPHOCYTE # 1.9 TH/MM3 (1.0-4.8); MEAN CELL VOLUME 90.2 FL (80.0-100.0); MEAN CORPUSCULAR HEMOGLOBIN 29.4 PG (27.0-34.0); MEAN CORPUSCULAR HGB CONC 32.6 % (32.0-36.0); MONO % 7.8 % (0.0-8.0); NEUT % 75.4 % (16.0-70.0); PLATELET COUNT 368 TH/MM3 (150-450); RED BLOOD COUNT 4.52 MIL/MM3 (4.00-5.30); RED CELL DISTRIBUTION WIDTH 12.7 % (11.6-17.2); WHITE BLOOD COUNT 15.4 TH/MM3 (4.0-11.0)
[2016-11-15 07:02] LABS: BICARBONATE 23.5 MEQ/L (21.0-32.0); POTASSIUM 3.8 MEQ/L (3.5-5.1)
[2016-11-15 07:46] LABS: BANDS 2 % (0-6); EOSINOPHILS 1 % (0-4); NEUTROPHIL # MANUAL DIFF 12.5 TH/MM3 (1.8-7.7); POLYS (SEG NEUTROPHILS) 79 % (16-70); SCAN/DIFF FINAL DIFF MANUAL; WBC DIFF SAMPLE 100
[2016-11-15] MEDS: LACTOBACILLUS ACIDOPHILUS TAB PO SCH ×4 (08:00→16:59)
[2016-11-15] MEDS: SODIUM CHLORIDE 0.9% FLUSH 5 ML FLUSH FLUSH SCH ×2 (09:00→19:26)
[2016-11-15] MEDS: ASPIRIN 325 MG TAB PO SCH (09:27)
[2016-11-15] MEDS: PANTOPRAZOLE SOD 40 MG DELAYED RELEASE TAB PO SCH (09:27)
[2016-11-15] MEDS: METOPROLOL SUCCINATE 50 MG EXTENDED RELEASE TAB PO SCH (09:27)
--- NOTE | 2016-11-15 16:47 | HHI.HP ---
[facility] Service [facility] Primary Care Physician Chuck Cota MD Admission Diagnosis CELLULITIS R ARM Diagnoses: (1) Sepsis Diagnosis: Principal (2) Cellulitis of right arm Diagnosis: Principal (3) Failure of outpatient treatment Diagnosis: Principal Chief Complaint: arm infection Travel History International Travel<30 Days: No Contact w/Intl Traveler <30 Da: No Traveled to Known Affected Are: No Sepsis Criteria SIRS Criteria (2 or more): Temp > 100.9 or < 96.8, WBC > 86164, < 4000 or > 10 % bands Sepsis Criteria (SIRS+source): Infect source susp/known Criteria Outcome: Meets sepsis criteria History of Present Illness 71-year-old female with history of right mastectomy due to breast cancer and lymphedema in the right arm and vascular dementia is admitted for right arm cellulitis. The patient was recently admitted on 11/04/16 and prior to that in July for cellulitis of the right upper extremity. When the patient was last hospitalized she received a dose of cefepime, vancomycin, and clindamycin and was given a prescription for clindamycin to take home. The patient states she did take the medication and did not miss any doses. She states the right arm started become red again yesterday. Nothing made the arm symptoms better or worse. Denies any pain in the arm. She states the redness and swelling is improved today. She denies any fevers or chills at home. Denies any chest pain, shortness of breath, abdominal pain, nausea, vomiting, dysuria, or diarrhea. Review of Systems Other ROS x 10 negative unless otherwise indicated in HPI. Past Family Social History Past Medical History Vascular dementia Right breast cancer Hypertension GERD Arthritis Review of old records indicates history of multiple TIAs with speech impediment and h/o CAD. Past Surgical History Right knee and right hip replacements Cataract surgery Reported Medications Active Probiotic (Lactobacillus Acidophilus) 1 Cap Cap 1 Cap PO TIDAC 10 Days Clindamycin (Clindamycin HCl) 300 Mg Cap 300 Mg PO Q6H 10 Days Reported Stool Softener (Docusate Sodium) 100 Mg Cap BID Vitamin D-3 (Cholecalciferol) 1,000 Unit Tab 2,000 Units PO DAILY B-12 (Cobalamine Combinations) 100-5,000 Mcg Subl 1,000 Mcg PO DAILY Aspirin 325 Mg Tab 325 Mg PO DAILY Atorvastatin (Atorvastatin Calcium) 20 Mg Tab 20 Mg PO HS Metoprolol Succinate ER 24 HR (Metoprolol Succinate) 50 Mg Tab 50 Mg PO DAILY Hydrochlorothiazide 12.5 Mg Cap 12.5 Mg PO DAILY Nexium (Esomeprazole DR) 40 Mg Capdr 40 Mg PO DAILY Letrozole 2.5 Mg Tab PO DAILY Allergies: Coded Allergies: Levaquin (Verified Allergy, Severe, REDNESS, 11/14/16) AT IV SITE AND SURROUNDING AREA Demerol (Verified Allergy, Intermediate, MAKES MIND FUZZY, 11/14/16) Vancomycin (Verified Allergy, Unknown, 11/14/16) Family History Patient denies family history of cancer. Social History Patient drinks alcohol once in a while. Patient quit smoking cigarettes 20 years ago. Prior to this she only smoked 2 cigarettes per day. Started smoking at the age of 21. Denies illicit drug use. Physical Exam Vital Signs Vital Signs Date Time Temp Pulse Resp B/P Pulse Ox O2 Delivery O2 Flow Rate FiO2 11/15/16 15:47 98.1 57 16 141/57 99 11/15/16 13:07 99.3 57 16 147/65 99 11/15/16 08:41 97.2 56 15 115/65 99 11/15/16 07:05 53 14 133/56 100 Room Air 11/15/16 05:00 56 20 149/34 96 Room Air 11/15/16 03:45 97.5 55 20 147/44 98 11/15/16 02:00 97.5 56 18 156/64 11/14/16 23:53 64 20 129/82 98 11/14/16 22:00 68 24 148/70 100 11/14/16 20:51 20 11/14/16 20:49 95 Room Air 11/14/16 19:30 102.3 98 20 172/76 96 11/14/16 18:37 96 Room Air 11/14/16 17:50 193/71 11/14/16 17:32 99.5 65 16 99 Physical Exam GENERAL: This is a thin, well-developed patient, in no apparent distress. SKIN: Warm light erythema extending from the mid right upper arm to the right wrist. There is mild induration. no fluctuance. HEAD: Atraumatic. Normocephalic. EYES: No scleral icterus. No injection or drainage. NECK: Trachea midline. CARDIOVASCULAR: Regular rate and rhythm. Subtle murmur over pulmonic region. RESPIRATORY: Clear to auscultation. Breath sounds equal bilaterally. No wheezes , rales, or rhonchi. GASTROINTESTINAL: Abdomen soft, non-tender, nondistended. MUSCULOSKELETAL: Swelling noted right upper extremity. 2+ right distal radial pulse. NEUROLOGICAL: Awake and alert. 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 5/5 quadriceps strength bilaterally. Patient stutters at times when she speaks and has some difficulty with word finding, likely chronic. Laboratory Laboratory Tests Test 11/14/16 11/14/16 11/15/16 18:10 20:40 06:40 White Blood Count 13.3 15.4 Red Blood Count 4.47 4.52 Hemoglobin 13.9 13.3 Hematocrit 40.4 40.8 Mean Corpuscular Volume 90.2 90.2 Mean Corpuscular Hemoglobin 31.1 29.4 Mean Corpuscular Hemoglobin 34.5 32.6 Concent Red Cell Distribution Width 12.6 12.7 Platelet Count 422 368 Mean Platelet Volume 8.4 8.4 Neutrophils (%) (Auto) 81.0 75.4 Lymphocytes (%) (Auto) 5.5 12.5 Monocytes (%) (Auto) 7.4 7.8 Eosinophils (%) (Auto) 1.4 0.6 Basophils (%) (Auto) 4.7 3.7 Neutrophils # (Auto) 10.8 11.6 Lymphocytes # (Auto) 0.7 1.9 Monocytes # (Auto) 1.0 1.2 Eosinophils # (Auto) 0.2 0.1 Basophils # (Auto) 0.6 0.6 CBC Comment AUTO DIFF AUTO DIFF Differential Total Cells 100 100 Counted Neutrophils % (Manual) 78 79 Lymphocytes % 12 12 Monocytes % 6 6 Eosinophils % 3 1 Basophils % 1 Neutrophils # (Manual) 10.4 12.5 Nucleated Red Blood Cells 1 Differential Comment FINAL DIFF FINAL DIFF MANUAL MANUAL Platelet Estimate NORMAL Platelet Morphology Comment CLUMPED Red Cell Morphology Comment NORMAL Sodium Level 134 135 Potassium Level 4.8 3.8 Chloride Level 97 103 Carbon Dioxide Level 27.2 23.5 Anion Gap 10 9 Blood Urea Nitrogen 18 13 Creatinine 0.77 1.00 Estimat Glomerular Filtration 73 54 Rate Random Glucose 82 91 Calcium Level 8.6 8.5 Total Bilirubin 0.4 Aspartate Amino Transf 32 (AST/SGOT) Alanine Aminotransferase 30 (ALT/SGPT) Alkaline Phosphatase 99 Total Protein 7.6 Albumin 3.8 Urine Collection Type CATH Urine Color YELLOW Urine Turbidity CLEAR Urine pH 7.0 Urine Specific [place] 1.022 Urine Protein NEG Urine Glucose (UA) NEG Urine Ketones NEG Urine Occult Blood NEG Urine Nitrite NEG Urine Bilirubin NEG Urine Leukocyte Esterase NEG Urine RBC 4-9 Urine WBC 3-5 Urine WBC Clumps OCC Urine Mucus OCC Microscopic Urinalysis Comment CATH-CULTURE IND Band Neutrophils % 2 Date/Time Procedure Status Source Growth 11/14/16 20:40 Urine Culture - Preliminary Resulted Urine Catheterized Urine NO GROWTH IN 24 HOURS. 11/14/16 18:20 Aerobic Blood Culture - Preliminary Resulted Blood Peripheral NO GROWTH IN 1 DAY 11/14/16 18:20 Anaerobic Blood Culture - Preliminary Resulted Blood Peripheral NO GROWTH IN 1 DAY Result Diagram: 11/15/16 0640 11/15/16 0640 Assessment and Plan Assessment and Plan 71-year-old female with: Sepsis: MAXIMUM TEMPERATURE 102.3. WBC 13.3-->15.4. Source of infection RUE cellulitis. Urine culture with no growth in 24 hours. -Blood cultures x 2 no growth in 1 day -Antibiotics as below -IV NS @ 100 mL/hr. -Tylenol prn fever -Monitor vitals RUE cellulitis: recurrent. History of lymphedema status post right mastectomy. Patient was recently admitted on 11/04 and given prescription for clindamycin when discharged with which she was compliant. -Patient received one dose of Levaquin although this is in allergy list. Continue Zosyn. -Arm elevation to reduce swelling -Can consider Augmentin when discharged. Chronic medical conditions include dementia, hypertension, CAD, GERD. Continue home medications. GI prophylaxis: 40 mg Protonix daily. DVT prevention: Lovenox Written by Lani Solis PA-C acting as scribe for Dr. Clarke on 11/15/16 at ~ 1600. The documentation accurately reflects the work and decisions performed face-to- face by in Dr. Clarke on 11/15/16 at 1600. Discussed Condition With patient Physician Certification 2 Midnight Certification Type: Admission for Inpatient Services Order for Inpatient Services The services are ordered in accordance with Medicare regulations or non- Medicare payer requirements, as applicable. In the case of services not specified as inpatient-only, they are appropriately provided as inpatient services in accordance with the 2-midnight benchmark. Estimated LOS (days): 2 days is the estimated time the patient will need to remain in the hospital, assuming treatment plan goals are met and no additional complications. Post-Hospital Plan: Linneus Lani Solis Nov 15, 2016 16:47
[2016-11-15] MEDS: ENOXAPARIN SODIUM 40 MG/0.4 ML SYRINGE SQ SCH (17:00)
[2016-11-15] MEDS: ATORVASTATIN 20 MG TAB PO SCH (19:28)
[2016-11-16] VITALS: BP 182/71; PULSE 57; RESP 18; TEMP 97.1; O2SAT 98
[2016-11-16] MEDS: PIPERACIL-TAZO 4.5 GM PREMIX 100 ML IV SCH ×2 (00:48→05:26)
[2016-11-16 08:00] VITALS: BP 166/68; PULSE 63; RESP 18; TEMP 96.8; O2SAT 100
[2016-11-16 08:05] LABS: AUTOMATED NEUTROPHIL # 3.9 TH/MM3 (1.8-7.7); BASOPHIL # 0.1 TH/MM3 (0-0.2); EOSINOPHIL # 0.2 TH/MM3 (0-0.4); EOSINOPHIL % 3.6 % (0.0-4.0); HEMATOCRIT 39.7 % (35.0-46.0); HEMO FLAGS DIFF FINAL; LYMPH % 23.4 % (9.0-44.0); LYMPHOCYTE # 1.5 TH/MM3 (1.0-4.8); MEAN CELL VOLUME 90.5 FL (80.0-100.0); MEAN CORPUSCULAR HEMOGLOBIN 30.1 PG (27.0-34.0); MEAN CORPUSCULAR HGB CONC 33.2 % (32.0-36.0); MONO % 12.7 % (0.0-8.0); NEUT % 59.3 % (16.0-70.0); PLATELET COUNT 413 TH/MM3 (150-450); RED BLOOD COUNT 4.38 MIL/MM3 (4.00-5.30); WHITE BLOOD COUNT 6.5 TH/MM3 (4.0-11.0)
[2016-11-16] MEDS: SODIUM CHLORIDE 0.9% FLUSH 5 ML FLUSH FLUSH SCH ×2 (09:00→20:04)
[2016-11-16] MEDS: PANTOPRAZOLE SOD 40 MG DELAYED RELEASE TAB PO SCH (09:39)
[2016-11-16] MEDS: LACTOBACILLUS ACIDOPHILUS TAB PO SCH ×3 (09:39→18:34)
[2016-11-16] MEDS: METOPROLOL SUCCINATE 50 MG EXTENDED RELEASE TAB PO SCH (09:39)
[2016-11-16] MEDS: ASPIRIN 325 MG TAB PO SCH (09:39)
[2016-11-16] MEDS: SODIUM CHLOR 0.9% 1000 ML INJ 1,000 ML IV SCH (09:39)
[2016-11-16] MEDS ORDERED: INFLUENZA VIRUS VACCINE (QUADRIVALENT) 0.5 ML SYR IM ONE (10:00)
--- NOTE | 2016-11-16 10:01 | HHI.PR ---
Subjective Remarks Patient seen in follow-up for cellulitis of the right arm with lymphedema from breast cancer. Doing better. No events on telemetry. Objective Vitals Vital Signs Date Time Temp Pulse Resp B/P Pulse Ox O2 Delivery O2 Flow Rate FiO2 11/16/16 08:00 96.8 63 18 166/68 100 11/16/16 00:00 97.1 57 18 182/71 98 11/15/16 20:00 97.5 58 18 158/64 98 11/15/16 15:47 98.1 57 16 141/57 99 11/15/16 13:07 99.3 57 16 147/65 99 I/O 11/15/16 11/15/16 11/15/16 11/16/16 11/16/16 11/16/16 07:00 15:00 23:00 07:00 15:00 23:00 Intake Total 1400 ml 1598 ml 1047 ml Output Total 1100 ml Balance 300 ml 1598 ml 1047 ml Intake Oral 800 ml 240 ml IV Total 1400 ml 798 ml 807 ml Output Urine Total 1100 ml # Voids 1 2 2 # Bowel Movements 0 Result Diagram: 11/16/16 0740 11/15/16 0640 Objective Remarks Bilateral medial hand abrasions healing GENERAL: This is a well-nourished, well-developed patient, in no apparent distress. CARDIOVASCULAR: Regular rate and rhythm without murmurs, gallops, or rubs. RESPIRATORY: Clear to auscultation. Breath sounds equal bilaterally. No wheezes , rales, or rhonchi. GASTROINTESTINAL: Abdomen soft, non-tender, nondistended. Normal active bowel sounds MUSCULOSKELETAL: Extremities without clubbing, cyanosis, or edema. NEURO: Alert & Oriented x4 to person, place, time, situation. Moves all ext x4 A/P Problem List: (1) Sepsis ICD Code: A41.9 Status: Acute Plan: resolving right arm cellulitis Change to PO Augmentin and follow overnight (2) Dementia ICD Code: F03.90 Status: Chronic Plan: currently at baseline (3) HTN (hypertension) ICD Code: I10 Status: Acute Plan: Continue metoprolol, resume hydrochlorothiazide DC IV fluids Discharge Planning likely dc home in Bozena Spear MD Nov 16, 2016 10:01
[2016-11-16] MEDS: HYDROCHLOROTHIAZIDE 12.5 MG CAP PO SCH (10:30)
[2016-11-16 12:00] VITALS: BP 133/63; PULSE 60; RESP 18; TEMP 97.7; O2SAT 99
[2016-11-16 16:00] VITALS: BP 110/64; PULSE 64; RESP 18; TEMP 98.3; O2SAT 100
[2016-11-16] MEDS: ENOXAPARIN SODIUM 40 MG/0.4 ML SYRINGE SQ SCH (18:34)
[2016-11-16 20:00] VITALS: BP 152/67; PULSE 52; RESP 16; TEMP 96.5; O2SAT 98
[2016-11-16] MEDS: ATORVASTATIN 20 MG TAB PO SCH (20:04)
[2016-11-16] MEDS: AMOXICILLIN/CLAVULANATE K 875 MG TAB PO SCH (20:04)
[2016-11-17] VITALS: BP 184/63; PULSE 50; RESP 18; TEMP 96; O2SAT 100
[2016-11-17 04:00] VITALS: BP 191/65; PULSE 50; RESP 20; TEMP 96.8; O2SAT 100
[2016-11-17] MEDS ORDERED: ENALAPRILAT 2.5 MG/2 ML VIAL IV PUSH PRN (04:00)
[2016-11-17] MEDS: METOPROLOL SUCCINATE 50 MG EXTENDED RELEASE TAB PO SCH (07:55)
[2016-11-17] MEDS: HYDROCHLOROTHIAZIDE 12.5 MG CAP PO SCH (07:55)
[2016-11-17] MEDS: ASPIRIN 325 MG TAB PO SCH (07:55)
[2016-11-17] MEDS: SODIUM CHLORIDE 0.9% FLUSH 5 ML FLUSH FLUSH SCH (07:56)
[2016-11-17] MEDS: PANTOPRAZOLE SOD 40 MG DELAYED RELEASE TAB PO SCH (07:56)
[2016-11-17] MEDS: AMOXICILLIN/CLAVULANATE K 875 MG TAB PO SCH (07:56)
[2016-11-17] MEDS: LACTOBACILLUS ACIDOPHILUS TAB PO SCH ×2 (07:56→12:23)
[2016-11-17 08:00] VITALS: BP 144/63; PULSE 63; RESP 20; TEMP 97.2; O2SAT 100
[2016-11-17] MEDS ORDERED: AMOX875T2 PO (11:50)
--- NOTE | 2016-11-17 11:52 | HHI.DS ---
Chuck Cota Discharge Summary Admission Date Nov 14, 2016 at 19:25 Discharge Date: Nov 17, 2016 Admitting Diagnosis CELLULITIS R ARM (1) Sepsis ICD Code: A41.9 (2) Dementia ICD Code: F03.90 (3) HTN (hypertension) ICD Code: I10 Procedures None Brief History - From Admission 71-year-old female with history of right mastectomy due to breast cancer and lymphedema in the right arm and vascular dementia is admitted for right arm cellulitis. The patient was recently admitted on 11/04/16 and prior to that in July for cellulitis of the right upper extremity. When the patient was last hospitalized she received a dose of cefepime, vancomycin, and clindamycin and was given a prescription for clindamycin to take home. The patient states she did take the medication and did not miss any doses. She states the right arm started become red again yesterday. Nothing made the arm symptoms better or worse. Denies any pain in the arm. She states the redness and swelling is improved today. She denies any fevers or chills at home. Denies any chest pain, shortness of breath, abdominal pain, nausea, vomiting, dysuria, or diarrhea. CBC/BMP: 11/16/16 0740 11/15/16 0640 Significant Findings Laboratory Tests Test 11/14/16 11/14/16 11/15/16 11/16/16 18:10 20:40 06:40 07:40 White Blood Count 13.3 TH/MM3 15.4 TH/MM3 (4.0-11.0) (4.0-11.0) Neutrophils (%) (Auto) 81.0 % 75.4 % (16.0-70.0) (16.0-70.0) Lymphocytes (%) (Auto) 5.5 % (9.0-44.0) Basophils (%) (Auto) 4.7 % (0.0-2.0) 3.7 % (0.0-2.0) Neutrophils # (Auto) 10.8 TH/MM3 11.6 TH/MM3 (1.8-7.7) (1.8-7.7) Lymphocytes # (Auto) 0.7 TH/MM3 (1.0-4.8) Monocytes # (Auto) 1.0 TH/MM3 1.2 TH/MM3 (0-0.9) (0-0.9) Basophils # (Auto) 0.6 TH/MM3 0.6 TH/MM3 (0-0.2) (0-0.2) Neutrophils % (Manual) 78 % (16-70) 79 % (16-70) Neutrophils # (Manual) 10.4 TH/MM3 12.5 TH/MM3 (1.8-7.7) (1.8-7.7) Nucleated Red Blood Cells 1 /100 WBC (0-0) Platelet Morphology Comment CLUMPED (NORMAL) Sodium Level 134 MEQ/L 135 MEQ/L (136-145) (136-145) Chloride Level 97 MEQ/L (98-107) Estimat Glomerular Filtration 73 ML/MIN (>89) 54 ML/MIN (>89) Rate Urine RBC 4-9 /hpf (0-3) Urine WBC Clumps OCC (NONE) Monocytes (%) (Auto) 12.7 % (0.0-8.0) PE at Discharge Bilateral medial hand abrasions healing GENERAL: This is a well-nourished, well-developed patient, in no apparent distress. CARDIOVASCULAR: Regular rate and rhythm without murmurs, gallops, or rubs. RESPIRATORY: Clear to auscultation. Breath sounds equal bilaterally. No wheezes , rales, or rhonchi. GASTROINTESTINAL: Abdomen soft, non-tender, nondistended. Normal active bowel sounds MUSCULOSKELETAL: Extremities without clubbing, cyanosis, or edema. NEURO: Alert & Oriented x4 to person, place, time, situation. Moves all ext x4 Pt update on day of discharge Patient seen today in follow-up for right arm cellulitis and for chronic lymphedema. Arm is improved. Patient tolerating oral antibiotics well. No fevers, cultures are negative at 3 days. Discharge plans discussed with patient and spouse at bedside. Hospital Course This patient is a 71-year-old female with chronic lymphedema in the right upper extremity from history of breast cancer. Patient has had recurrent episodes of erythema and edema. Patient has responded well to antibiotics. She is instructed to continue wearing her lymphedema/compressive sleeve which she has not been doing and what should improve the lymphedema test changes. 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 She has been on antibiotics and steroids for these in the past. At this point patient will be discharged home to continue oral antibiotics and follow up with her primary care provider. Pt Condition on Discharge: Good Discharge Disposition: Discharge Home Discharge Time: > 30 minutes Discharge Instructions DIET: Follow Instructions for: As Tolerated, No Restrictions Activities you can perform: Regular-No Restrictions Other Activity Instructions: wear right arm lymphedema/compression sleeve Follow up Referrals: PCP Follow-up - 11/22/16 with katheryn New Medications: Amoxicillin-Clavulanate (Amoxicillin-Clavulanate) 875-125 mg Tab 875 MG PO Q12HR Infection #14 TAB Continued Medications: Aspirin (Aspirin) 325 Mg Tab 325 MG PO DAILY #30 Ref 0 TAB Atorvastatin (Atorvastatin) 20 Mg Tab 20 MG PO HS Cholesterol Management #30 Ref 0 TAB Cholecalciferol (Vitamin D-3) 1,000 Unit Tab 2000 UNITS PO DAILY #30 Ref 0 TAB Cobalamine Combinations (B-12) 100-5,000 Mcg Subl 1000 MCG PO DAILY #1 Ref 0 TAB.SL Docusate Sodium (Stool Softener) 100 Mg Cap BID Esomeprazole DR (Nexium) 40 Mg Capdr 40 MG PO DAILY Ref 0 CAP Hydrochlorothiazide (Hydrochlorothiazide) 12.5 Mg Cap 12.5 MG PO DAILY #30 Ref 0 CAP Lactobacillus Acidophilus (Probiotic) 1 Cap Cap 1 CAP PO TIDAC Nutritional Supplement Days 10 Ref 0 CAP Letrozole (Letrozole) 2.5 Mg Tab PO DAILY Metoprolol Succinate ER 24 HR (Metoprolol Succinate ER 24 HR) 50 Mg Tab 50 MG PO DAILY #30 Ref 0 TAB Discontinued Medications: Clindamycin (Clindamycin) 300 Mg Cap 300 MG PO Q6H Infection Days 10 Ref 0 CAP Bozena Taveras MD Nov 17, 2016 11:52
[2016-11-17 12:00] VITALS: BP 150/76; PULSE 60; RESP 18; TEMP 96.9; O2SAT 98
== END 2016-11-17 13:20 | disposition home or self-care (01) | DRG 872 ==
LOC: PHED 17:18 → PHEDA 19:25 → PHEDH 23:25 → PH3A 11-15 08:03
PROVIDERS: ADMIT Hospitalist; ATTEND Hospitalist
DX: A41.9 Sepsis, unspecified organism (principal); L03.113 Cellulitis of right upper limb; F01.50 Vascular dementia, unspecified severity, without behavioral disturbance, psychotic disturbance, mood disturbance, and anxiety; I10 Essential (primary) hypertension; K21.9 Gastro-esophageal reflux disease without esophagitis; M19.90 Unspecified osteoarthritis, unspecified site; I89.0 Lymphedema, not elsewhere classified; R47.9 Unspecified speech disturbances; I25.10 Atherosclerotic heart disease of native coronary artery without angina pectoris; Z87.891 Personal history of nicotine dependence; Z88.1 Allergy status to other antibiotic agents; Z88.5 Allergy status to narcotic agent; S60.512A Abrasion of left hand, initial encounter; S60.511A Abrasion of right hand, initial encounter; X58.XXXA Exposure to other specified factors, initial encounter; Y93.9 Activity, unspecified; Z85.3 Personal history of malignant neoplasm of breast; Z90.11 Acquired absence of right breast and nipple; Z92.3 Personal history of irradiation; Z86.73 Personal history of transient ischemic attack (TIA), and cerebral infarction without residual deficits; Z92.21 Personal history of antineoplastic chemotherapy; Y92.9 Unspecified place or not applicable
CPT/HCPCS: 76937; 80048; 80053; 81001; 85007; 85025; 85027; 87040; 87086; 96361; 96374; J1650; J1956; J2543; J7030

== ENCOUNTER 2016-12-07 22:56 | Inpatient (IN) | payer OTHER, MEDICARE ==
[~2016-12-07] VITALS: Ht 162.6 cm; Wt 60.9 kg
[~2016-12-07 22:56] MED LIST changes: +AMOX875T2 PO; -CLIN1CAP6 PO
[2016-12-07 23:04] VITALS: BP 176/62; PULSE 74; RESP 14; TEMP 100.7; O2SAT 98
[2016-12-08] VITALS (10 sets, daily range): BP systolic 126–168; BP diastolic 46–74; PULSE 56–74; RESP 16–20; TEMP 95.9–99.2; O2SAT 96–100
[2016-12-08] MEDS ORDERED: CLINDAMYCIN INJ 900 MG in SODIUM CHLORIDE 0.9% INJ 100 ML IV ONE (01:30)
[2016-12-08] MEDS ORDERED: ACETAMINOPHEN 325 MG TAB PO ONE (01:30)
[2016-12-08] MEDS ORDERED: SODIUM CHLORID 0.9% 500 ML INJ 500 ML IV ONE (01:30)
[2016-12-08] MEDS ORDERED: SODIUM CHLOR 0.9% 1000 ML INJ 1,000 ML IV SCH (01:30)
[2016-12-08] MEDS ORDERED: PIPERACIL-TAZO 4.5 GM PREMIX 100 ML IV ONE (01:30)
--- NOTE | 2016-12-08 01:33 | PD ---
HPI Chief Complaint: Edema Time Seen by Provider: 01:23 Travel History International Travel<30 days: No Contact w/Intl Traveler<30days: No Traveled to known affect area: No History of Present Illness HPI 71-year-old female presents to the emergency department by private transportation the care of her spouse for redness and swelling of the right upper extremity. Patient has history of previous breast cancer with right mastectomy and subsequent lymphedema of the right upper extremity. According to the who relays her history is patient has some dementia and cognitive impairment symptoms began approximately 10 PM and have rapidly progressed. Patient presents to the emergency department with temperature elevation of 100.7F consistent with fever however no fever or chills at home. No antipyretics have been administered at home. Patient is not diabetic. Patient is not currently on antibiotic. This is the fourth visit to the hospital for same issue acute sudden cellulitis of the right upper extremity with history of lymphedema since July 2016 and 2 admissions October 2015 for same concern. Patient pain estimation is 5/10 in intensity. PFSH Past Medical History Narrative Medical Arthritis breast cancer status post mastectomy and radiation therapy chemotherapy CVA multi-infarct dementia hypertension no tobacco use nursing notes reviewed Arthritis: Yes Autoimmune Disease: No Anxiety: No Depression: No Heart Rhythm Problems: No Cancer: Yes (R breast) Cardiovascular Problems: Yes (HTN) High Cholesterol: No Chemotherapy: Yes (28 YRS AGO FOR BREAST CA) Congestive Heart Failure: No Cerebrovascular Accident: Yes (TIAs) Diabetes: No Diminished Hearing: No Endocrine: No Gastrointestinal Disorders: Yes GERD: Yes (GERD) Genitourinary: No Hiatal Hernia: No Hypertension: Yes Immune Disorder: No Musculoskeletal: Yes Neurologic: Yes (dementia) Psychiatric: Yes (Dementia) Reproductive: No Respiratory: No Migraines: No Radiation Therapy: Yes Seizures: No Thyroid Disease: No Ulcer: No ?: Not Past Surgical History Abdominal Surgery: No AICD: No Arteriovenous Shunt: No Body Medical Devices: cataract implants Cardiac Surgery: No Ear Surgery: No Endocrine Surgery: No Eye Surgery: Yes (cataracts) Genitourinary Surgery: No Gynecologic Surgery: No Insulin Pump: No Joint Replacement: Yes Oral Surgery: No Pacemaker: No Thoracic Surgery: No Other Surgery: Yes (rt mastectomy ) Social History Alcohol Use: No Tobacco Use: No Substance Use: No Allergies-Medications (Allergen,Severity, Reaction): Coded Allergies: Levaquin (Verified Allergy, Severe, REDNESS, 12/08/16) AT IV SITE AND SURROUNDING AREA Demerol (Verified Allergy, Intermediate, MAKES MIND FUZZY, 12/08/16) Vancomycin (Verified Allergy, Unknown, 12/08/16) Reported Meds & Prescriptions Reported Meds & Active Scripts Active Reported Stool Softener (Docusate Sodium) 100 Mg Cap BID Vitamin D-3 (Cholecalciferol) 1,000 Unit Tab 2,000 Units PO DAILY B-12 (Cobalamine Combinations) 100-5,000 Mcg Subl 1,000 Mcg PO DAILY Aspirin 325 Mg Tab 325 Mg PO DAILY Atorvastatin (Atorvastatin Calcium) 20 Mg Tab 20 Mg PO HS Metoprolol Succinate ER 24 HR (Metoprolol Succinate) 50 Mg Tab 50 Mg PO DAILY Hydrochlorothiazide 12.5 Mg Cap 12.5 Mg PO DAILY Nexium (Esomeprazole DR) 40 Mg Capdr 40 Mg PO DAILY Letrozole 2.5 Mg Tab PO DAILY Review of Systems ROS Limitations: Clinical Condition, Poor Historian, Other: (provided by ) Except as stated in HPI: all other systems reviewed are Neg General / Constitutional: Positive: Fever, Chills HENT: No: Congestion Cardiovascular: No: Chest Pain or Discomfort Respiratory: No: Shortness of Breath Gastrointestinal: No: Vomiting, Diarrhea Genitourinary: No: Decreased Urinary Output Musculoskeletal: Positive: Edema, Pain, No: Myalgias, Arthralgias Skin: Positive Rash Neurologic: Positive: Weakness Psychiatric: Positive: Anxiety Hematologic/Lymphatic: No: Lymph Node Enlargement Physical Exam Narrative GENERAL: Well-developed well-nourished female in no acute distress no respiratory distress intimately agitated which is baseline according to the SKIN: Warm and dry. Erythema and warmth edema of the right upper extremity is history of lymphedema. HEAD: Normocephalic. EYES: No scleral icterus. No injection or drainage. NECK: Supple, trachea midline. No JVD or lymphadenopathy. CARDIOVASCULAR: Regular rate and rhythm without murmurs, gallops, or rubs. RESPIRATORY: Breath sounds equal bilaterally. No accessory muscle use. GASTROINTESTINAL: Abdomen soft, non-tender, nondistended. MUSCULOSKELETAL: No cyanosis, or edema. BACK: Nontender without obvious deformity. No CVA tenderness. Data Data Last Documented VS Vital Signs Date Time Temp Pulse Resp B/P Pulse Ox O2 Delivery O2 Flow Rate FiO2 12/08/16 04:30 99 21 12/08/16 04:30 74 16 168/62 Room Air 12/07/16 23:04 100.7 Orders Basic Metabolic Panel (Bmp) (12/08/16 01:23) Complete Blood Count With Diff (12/08/16 01:23) Blood Culture (12/08/16 01:23) Iv Access Insert/Monitor (12/08/16 01:23) Clindamycin Inj (Cleocin Inj) (12/08/16 01:30) Piperacil-Tazo 4.5 Gm Premix (Zosyn 4.5 (12/08/16 01:30) Sodium Chlorid 0.9% 500 Ml Inj (Ns 500 M (12/08/16 01:30) Sodium Chlor 0.9% 1000 Ml Inj (Ns 1000 M (12/08/16 01:30) Acetaminophen (Tylenol) (12/08/16 01:30) Lactic Acid Sepsis Protocol (12/08/16 01:23) Clindamycin Inj (Cleocin Inj) (12/08/16 10:00) Piperacil-Tazo 4.5 Gm Premix (Zosyn 4.5 (12/08/16 08:00) Admit To Inpatient (12/08/16 ) Vital Signs (Adult) Q4H (12/08/16 02:12) Activity Oob With Assistance (12/08/16 02:12) Medical Receptionist Medical Assistant / Telemetry .CONTINUOUS (12/08/16 02:12) Intake + Output MARANDA.QSHIFT (12/08/16 02:12) Diet Regular Basic (12/08/16 Breakfast) Sodium Chlor 0.9% 1000 Ml Inj (Ns 1000 M (12/08/16 02:12) Sodium Chloride 0.9% Flush (Ns Flush) (12/08/16 02:15) Sodium Chloride 0.9% Flush (Ns Flush) (12/08/16 09:00) Ondansetron Inj (Zofran Inj) (12/08/16 02:15) Bisacodyl Supp (Dulcolax Supp) (12/08/16 02:15) Comprehensive Metabolic Panel (12/09/16 06:00) Complete Blood Count With Diff (12/09/16 06:00) Scd Bilateral/Knee High MARANDA.BID (12/08/16 02:12) Del Bilateral/Knee High MARANDA.QSHIFT (12/08/16 02:12) Acetaminophen (Tylenol) (12/08/16 02:15) Acetamin-Hydrocod 325-5 Mg (Lyons 5-325 (12/08/16 02:15) Acetamin-Hydrocod 325-10 Mg (Lyons 10-32 (12/08/16 02:15) Inpatient Certification (12/08/16 ) Aspirin (Aspirin) (12/08/16 09:00) Atorvastatin (Lipitor) (12/08/16 21:00) Metoprolol Succinate Er (Toprol Xl) (12/08/16 09:00) Pantoprazole (Protonix) (12/08/16 09:00) Admit Order (Ed Use Only) (12/08/16 ) ^ Saline Lock (12/08/16 05:03) Resp Oxygen Cornelio C Titrat 1-4 L (12/08/16 ) ^ Notify Dr: Other (12/08/16 05:03) Sodium Chloride 0.9% Flush (Ns Flush) (12/08/16 09:00) Sodium Chloride 0.9% Flush (Ns Flush) (12/08/16 05:15) Labs Laboratory Tests Test 12/08/16 12/08/16 12/08/16 01:30 02:20 04:20 Sodium Level 136 MEQ/L Potassium Level 4.3 MEQ/L Chloride Level 99 MEQ/L Carbon Dioxide Level 25.2 MEQ/L Anion Gap 12 MEQ/L Blood Urea Nitrogen 22 MG/DL Creatinine 1.00 MG/DL Estimat Glomerular Filtration 54 ML/MIN Rate Random Glucose 110 MG/DL Lactic Acid Level 2.7 mmol/L 2.1 mmol/L Calcium Level 9.0 MG/DL White Blood Count 12.5 TH/MM3 Red Blood Count 4.24 MIL/MM3 Hemoglobin 12.8 GM/DL Hematocrit 37.5 % Mean Corpuscular Volume 88.4 FL Mean Corpuscular Hemoglobin 30.1 PG Mean Corpuscular Hemoglobin 34.0 % Concent Red Cell Distribution Width 12.7 % Platelet Count 349 TH/MM3 Mean Platelet Volume 7.8 FL Neutrophils (%) (Auto) 84.4 % Lymphocytes (%) (Auto) 6.0 % Monocytes (%) (Auto) 7.1 % Eosinophils (%) (Auto) 0.4 % Basophils (%) (Auto) 2.1 % Neutrophils # (Auto) 10.6 TH/MM3 Lymphocytes # (Auto) 0.7 TH/MM3 Monocytes # (Auto) 0.9 TH/MM3 Eosinophils # (Auto) 0.0 TH/MM3 Basophils # (Auto) 0.3 TH/MM3 CBC Comment DIFF FINAL Differential Comment MDM Medical Decision Making Medical Screen Exam Complete: Yes Emergency Medical Condition: Yes Medical Record Reviewed: Yes (tetanus status current generator 2016) Interpretation(s) CBC & BMP Diagram 12/08/16 01:30 12/08/16 02:20 lactic acid: 2.7, elevated Differential Diagnosis Cellulitis, lymphedema, DVT Narrative Course Patient with obvious cellulitis of the right upper extremity where she has pre- existing lymphedema status post right mastectomy. Patient with rapid onset of symptoms. Patient concerning for early sepsis/Sirs and administered IV antibiotics after cultures obtained. Patient aware of need for admission. Has been at bedside. Patient resting comfortably and will be admitted to medicine service. Critical Care Narrative Aggregate critical care time was 35 minutes. Time to perform other separately billable procedures was not included in the critical care time. My time did not include minutes spent treating any other patients simultaneously or on activities that did not directly contribute to the patient's treatment. The services I provided to this patient were to treat and/or prevent clinically significant deterioration that could result in: Sepsis/shock, compartment syndrome, I provided critical care services requiring my management, as noted below: Chart data review, documentation time, medication orders and management, vital sign assessments/reviewing monitor data, ordering and reviewing lab tests, ordering and interpreting/reviewing x-rays and diagnostic studies, care of the patient and discussion of the patient with the admitting physicians. Sepsis Criteria SIRS Criteria (2 or more): WBC > 21058, < 4000 or > 10% bands Sepsis Criteria (SIRS+source): Infect source susp/known Severe Sepsis (+one): Lactate >2 Physician Communication Physician Communication discussed with Dr Chowdhury --admit Diagnosis Primary Impression: Cellulitis of right arm Additional Impression: SIRS (systemic inflammatory response syndrome) Admitting Information Admitting Physician Requests: Admit Ashtyn Pritchard MD Dec 08, 2016 01:33
[2016-12-08 02:00] LABS: POTASSIUM 4.3 MEQ/L (3.5-5.1)
[2016-12-08 02:03] LABS: BICARBONATE 25.2 MEQ/L (21.0-32.0)
[2016-12-08] MEDS ORDERED: ONDANSETRON HCL 4 MG/2 ML VIAL IVP PRN (02:15)
[2016-12-08] MEDS ORDERED: SODIUM CHLORIDE 0.9% FLUSH 5 ML FLUSH FLUSH PRN (02:15)
[2016-12-08] MEDS ORDERED: ACETAMINOPHEN 325 MG TAB PO PRN (02:15)
[2016-12-08] MEDS ORDERED: ACETAMINOPHEN/HYDROcodone 325 MG/10 MG TAB PO PRN (02:15)
[2016-12-08] MEDS ORDERED: ACETAMINOPHEN/HYDROcodone 325 MG/5 MG TAB PO PRN (02:15)
[2016-12-08] MEDS ORDERED: BISACODYL 10 MG SUPP PR PRN (02:15)
[2016-12-08 02:37] LABS: AUTOMATED NEUTROPHIL # 10.6 TH/MM3 (1.8-7.7); BASOPHIL # 0.3 TH/MM3 (0-0.2); BASOPHIL % 2.1 % (0.0-2.0); EOSINOPHIL % 0.4 % (0.0-4.0); HEMATOCRIT 37.5 % (35.0-46.0); HEMO FLAGS DIFF FINAL; LYMPHOCYTE # 0.7 TH/MM3 (1.0-4.8); MEAN CELL VOLUME 88.4 FL (80.0-100.0); MEAN CORPUSCULAR HEMOGLOBIN 30.1 PG (27.0-34.0); MONO % 7.1 % (0.0-8.0); NEUT % 84.4 % (16.0-70.0); PLATELET COUNT 349 TH/MM3 (150-450); RED BLOOD COUNT 4.24 MIL/MM3 (4.00-5.30); RED CELL DISTRIBUTION WIDTH 12.7 % (11.6-17.2); WHITE BLOOD COUNT 12.5 TH/MM3 (4.0-11.0)
[2016-12-08] MEDS: SODIUM CHLOR 0.9% 1000 ML INJ 1,000 ML IV SCH ×3 (03:05→22:12)
[2016-12-08 03:44] LABS: LACTIC ACID GHOST NOT REPORTABLE
[2016-12-08] MEDS ORDERED: SODIUM CHLORIDE 0.9% FLUSH 5 ML FLUSH IVF PRN (05:15)
[2016-12-08] MEDS: SODIUM CHLORIDE 0.9% FLUSH 5 ML FLUSH FLUSH SCH ×2 (09:00→20:26)
[2016-12-08] MEDS ORDERED: SODIUM CHLORIDE 0.9% FLUSH 5 ML FLUSH IVF SCH (09:00)
[2016-12-08] MEDS: PIPERACIL-TAZO 4.5 GM PREMIX 100 ML IV SCH ×3 (09:16→20:16)
[2016-12-08] MEDS: PANTOPRAZOLE SOD 40 MG DELAYED RELEASE TAB PO SCH (09:16)
[2016-12-08] MEDS: CLINDAMYCIN INJ 900 MG in SODIUM CHLORIDE 0.9% INJ 100 ML IV SCH ×2 (09:16→17:07)
[2016-12-08] MEDS: METOPROLOL SUCCINATE 50 MG EXTENDED RELEASE TAB PO SCH (09:17)
[2016-12-08] MEDS: ASPIRIN 325 MG TAB PO SCH (09:17)
--- NOTE | 2016-12-08 12:08 | HHI.HP ---
[facility] Service [place] [facility] Primary Care Physician Chuck Cota MD Admission Diagnosis RUE cellulitis Diagnoses: (1) Cellulitis of right arm Diagnosis: Principal (2) HTN (hypertension) Diagnosis: Secondary (3) Dementia Diagnosis: Secondary Chief Complaint: Right arm cellulitis Travel History International Travel<30 Days: No Contact w/Intl Traveler <30 Da: No Traveled to Known Affected Are: No History of Present Illness 71-year-old female with known history of dementia, breast cancer status post mastectomy, chronic lymphedema in the right upper extremity, hypertension, coronary artery disease who presented to hospital because of recurrent erythema of the right upper extremity. Patient has had previous admissions last month on 11/05/16 and 11/15/16 for similar symptoms. Patient met sepsis criteria on previous admissions, patient was discharged home with outpatient antibiotics on separate occasions to include Augmentin and clindamycin. Patient be presented to the hospital again with upper extremity redness. There is no signs of any fever, sepsis. Patient does have some underlying dementia, obtaining information from the patient was minimal. Is recommended by ER physician the patient be admitted for further evaluation management. Review of Systems ROS Limitations: Poor Historian Integumentary: COMPLAINS OF: Abnormal pigmentation Hematologic/lymphatic: COMPLAINS OF: Lymphadenopathy Past Family Social History Past Medical History Vascular dementia Right breast cancer Hypertension GERD Arthritis history of multiple TIAs with speech impediment Coronary artery disease Past Surgical History Right knee and right hip replacements Cataract surgery Mastectomy Reported Medications Reported Meds & Active Scripts Active Reported Stool Softener (Docusate Sodium) 100 Mg Cap BID Vitamin D-3 (Cholecalciferol) 1,000 Unit Tab 2,000 Units PO DAILY B-12 (Cobalamine Combinations) 100-5,000 Mcg Subl 1,000 Mcg PO DAILY Aspirin 325 Mg Tab 325 Mg PO DAILY Atorvastatin (Atorvastatin Calcium) 20 Mg Tab 20 Mg PO HS Metoprolol Succinate ER 24 HR (Metoprolol Succinate) 50 Mg Tab 50 Mg PO DAILY Hydrochlorothiazide 12.5 Mg Cap 12.5 Mg PO DAILY Nexium (Esomeprazole DR) 40 Mg Capdr 40 Mg PO DAILY Letrozole 2.5 Mg Tab PO DAILY Allergies: Coded Allergies: Levaquin (Verified Allergy, Severe, REDNESS, 12/08/16) AT IV SITE AND SURROUNDING AREA Demerol (Verified Allergy, Intermediate, MAKES MIND FUZZY, 12/08/16) Vancomycin (Verified Allergy, Unknown, 12/08/16) Family History Reviewed and unremarkable Social History Patient quit smoking 20 years ago prior to that she smoked 2 cigarettes daily and she was 21. He drinks alcohol occasionally. No indication of illicit drugs Physical Exam Vital Signs Vital Signs Date Time Temp Pulse Resp B/P Pulse Ox O2 Delivery O2 Flow Rate FiO2 12/08/16 10:30 99 21 12/08/16 08:15 99.2 62 20 152/64 99 12/08/16 07:25 59 16 129/46 99 Room Air 12/08/16 04:30 99 21 12/08/16 04:30 74 16 168/62 99 Room Air 12/08/16 02:20 72 16 147/74 99 Room Air 12/07/16 23:04 100.7 74 14 176/62 98 Room Air Physical Exam GENERAL: Well-developed, well-nourished, in no acute distress. alert and orientated to person, city HEENT: Head is normocephalic without any lesions or masses noted. Facial features are symmetric. Eyes: Pupils equal round reactive to light. Extraocular muscles are intact. Conjunctivae were clear. Oropharyngeal: Pharynx without any erythema edema. Tongue is midline without deviation. Buccal mucosa is moist without any masses or lesions NECK: Supple without any masses. Trachea midline no deviation. No JVD, no bruits are appreciated CARDIAC: Regular rhythm, regular rate. S1/S2 are heard. No murmurs gallops or rubs. LUNGS: Clear to auscultation bilaterally. No wheeze, rhonchi or rales. No use of accessory muscles on inspiration or expiration. ABDOMEN: Soft, nontender. Nondistended. Bowel sounds heard in all 4 quadrants. No organomegaly or masses. Negative rebound, negative guarding EXTREMITIES: No edema, pulses are equal bilaterally. No cyanosis or clubbing NEUROLOGY: Mood and affect appear appropriate. Cranial nerves II through XII grossly intact. Muscle strength 5/5 in upper and lower extremities bilaterally. Deep tendon reflexes are 2+ in upper and lower extremities bilaterally. RIGHT UPPER EXTREMITY: Patient does have erythema noted from deltoid muscle down to rest. She does have some excoriations of the hypo-thenar region of the hand. Around her cuticles. Laboratory Laboratory Tests Test 12/08/16 12/08/16 12/08/16 01:30 02:20 04:20 Sodium Level 136 Potassium Level 4.3 Chloride Level 99 Carbon Dioxide Level 25.2 Anion Gap 12 Blood Urea Nitrogen 22 Creatinine 1.00 Estimat Glomerular Filtration 54 Rate Random Glucose 110 Lactic Acid Level 2.7 2.1 Calcium Level 9.0 White Blood Count 12.5 Red Blood Count 4.24 Hemoglobin 12.8 Hematocrit 37.5 Mean Corpuscular Volume 88.4 Mean Corpuscular Hemoglobin 30.1 Mean Corpuscular Hemoglobin 34.0 Concent Red Cell Distribution Width 12.7 Platelet Count 349 Mean Platelet Volume 7.8 Neutrophils (%) (Auto) 84.4 Lymphocytes (%) (Auto) 6.0 Monocytes (%) (Auto) 7.1 Eosinophils (%) (Auto) 0.4 Basophils (%) (Auto) 2.1 Neutrophils # (Auto) 10.6 Lymphocytes # (Auto) 0.7 Monocytes # (Auto) 0.9 Eosinophils # (Auto) 0.0 Basophils # (Auto) 0.3 CBC Comment DIFF FINAL Differential Comment Date/Time Procedure Status Source Growth 12/08/16 02:20 Aerobic Blood Culture Received Blood Peripheral Pending 12/08/16 02:20 Anaerobic Blood Culture Received Blood Peripheral Pending Result Diagram: 12/08/16 0220 12/08/16 0130 Assessment and Plan Assessment and Plan Right upper extremity recurrent cellulitis with mild lactic acidosis: Patient with history of right mastectomy, chronic right lymphedema with recurrent right upper extremity cellulitis. Patient has been admitted 2 times previously last month for same symptoms. Patient was discharged those times with clindamycin and then with Augmentin. Patient failed outpatient management at least 2 times in the last 30 days. Patient started on Zosyn IV and clindamycin IV. We'll consult infectious disease for further recommendations. Dementia, hypertension, coronary artery disease, gastroesophageal reflux: We' ll continue home medications DVT prevention: Sequential compression devices Written by Tate Duque PA-C, acting as scribe for Dr. Clarke on 12/08/16 at 1140. The documentation accurately reflects the work and decisions performed face-to- face by Dr. Clarke on 12/08/16 at 1140. Physician Certification 2 Midnight Certification Type: Admission for Inpatient Services Order for Inpatient Services The services are ordered in accordance with Medicare regulations or non- Medicare payer requirements, as applicable. In the case of services not specified as inpatient-only, they are appropriately provided as inpatient services in accordance with the 2-midnight benchmark. Estimated LOS (days): 2 days is the estimated time the patient will need to remain in the hospital, assuming treatment plan goals are met and no additional complications. Post-Hospital Plan: Not yet determined Problem Qualifiers (1) HTN (hypertension): Qualified Code: I15.9 - Secondary hypertension (2) Dementia: Qualified Code: F03.90 - Dementia without behavioral disturbance, unspecified dementia type Tate Duque Dec 08, 2016 12:08
[2016-12-08] MEDS ORDERED: ATORVASTATIN 20 MG TAB PO SCH (21:00)
[2016-12-09] VITALS: BP_SYST 113; BP_SYST 127; BP_SYST 134; BP_SYST 144; BP_DIAS 44; BP_DIAS 68; BP_DIAS 70; BP_DIAS 87; PULSE 65; PULSE 92; RESP 18; TEMP 97; TEMP 98.5; O2SAT 96; O2SAT 98
[2016-12-09] MEDS: PIPERACIL-TAZO 4.5 GM PREMIX 100 ML IV SCH ×2 (02:34→07:37)
[2016-12-09] MEDS: CLINDAMYCIN INJ 900 MG in SODIUM CHLORIDE 0.9% INJ 100 ML IV SCH (03:06)
[2016-12-09 07:25] LABS: AUTOMATED NEUTROPHIL # 2.3 TH/MM3 (1.8-7.7); BASOPHIL % 0.7 % (0.0-2.0); EOSINOPHIL # 0.2 TH/MM3 (0-0.4); EOSINOPHIL % 5.5 % (0.0-4.0); HEMATOCRIT 33.6 % (35.0-46.0); LYMPH % 27.2 % (9.0-44.0); LYMPHOCYTE # 1.2 TH/MM3 (1.0-4.8); MEAN CELL VOLUME 90.5 FL (80.0-100.0); MEAN CORPUSCULAR HEMOGLOBIN 30.3 PG (27.0-34.0); MEAN CORPUSCULAR HGB CONC 33.5 % (32.0-36.0); MONO % 18.9 % (0.0-8.0); NEUT % 47.7 % (16.0-70.0); PLATELET COUNT 313 TH/MM3 (150-450); RED BLOOD COUNT 3.71 MIL/MM3 (4.00-5.30); RED CELL DISTRIBUTION WIDTH 13.1 % (11.6-17.2); WHITE BLOOD COUNT 4.5 TH/MM3 (4.0-11.0)
[2016-12-09 07:28] LABS: HEMO FLAGS DIFF FINAL
[2016-12-09 07:30] VITALS: O2SAT 99
[2016-12-09] MEDS: PANTOPRAZOLE SOD 40 MG DELAYED RELEASE TAB PO SCH (07:37)
[2016-12-09] MEDS: ASPIRIN 325 MG TAB PO SCH (07:37)
[2016-12-09] MEDS: SODIUM CHLORIDE 0.9% FLUSH 5 ML FLUSH FLUSH SCH (07:37)
[2016-12-09] MEDS: METOPROLOL SUCCINATE 50 MG EXTENDED RELEASE TAB PO SCH (07:37)
[2016-12-09] MEDS: SODIUM CHLOR 0.9% 1000 ML INJ 1,000 ML IV SCH (07:39)
[2016-12-09 07:53] LABS: ALKALINE PHOSPHATASE 60 U/L (45-117); ALT (GPT) 18 U/L (10-53); ANION GAP 8 MEQ/L (5-15); AST (GOT) 15 U/L (15-37); BICARBONATE 25.2 MEQ/L (21.0-32.0); BLOOD UREA NITROGEN 15 MG/DL (7-18); CHLORIDE 108 MEQ/L (98-107); GLOMERULAR FILTRATION RATE 70 ML/MIN (>89); POTASSIUM 4.1 MEQ/L (3.5-5.1); SODIUM (NA) 141 MEQ/L (136-145); TOTAL BILIRUBIN ADULT 0.5 MG/DL (0.2-1.0)
[2016-12-09 08:00] VITALS: BP 166/71; PULSE 2; RESP 19; TEMP 98; O2SAT 96
--- NOTE | 2016-12-09 08:22 | HHI.PR ---
Subjective Remarks Patient seen and examined today with Dr. Clarke. at bedside. Discussed patient care with patient and . Patient's arm is much improved. is anticipating possible discharge later today or tomorrow morning. Objective Vitals Vital Signs Date Time Temp Pulse Resp B/P Pulse Ox O2 Delivery O2 Flow Rate FiO2 12/09/16 00:00 97.0 65 18 113/44 98 12/08/16 20:00 95.9 60 18 126/66 96 12/08/16 19:16 99 12/08/16 16:00 97.2 56 20 138/53 98 12/08/16 12:00 96.9 59 20 159/68 100 12/08/16 10:30 99 21 12/08/16 09:10 62 I/O 12/08/16 12/08/16 12/08/16 12/09/16 12/09/16 12/09/16 07:00 15:00 23:00 07:00 15:00 23:00 Intake Total 1430 ml 240 ml Balance 1430 ml 240 ml Intake Oral 1430 ml 240 ml # Voids 4 4 # Bowel Movements 1 2 Result Diagram: 12/09/16 0650 12/09/16 0650 Objective Remarks GENERAL: Well-developed, well-nourished, in no acute distress. alert and orientated to person, city HEENT: Head is normocephalic without any lesions or masses noted. Facial features are symmetric. Eyes: Extraocular muscles are intact. Conjunctivae were clear. NECK: Supple without any masses. Trachea midline no deviation. No JVD, CARDIAC: Regular rhythm, regular rate. S1/S2 are heard. No murmurs gallops or rubs. LUNGS: Clear to auscultation bilaterally. No wheeze, rhonchi or rales. No use of accessory muscles on inspiration or expiration. ABDOMEN: Soft, nontender. Nondistended. Bowel sounds heard in all 4 quadrants. No organomegaly or masses. Negative rebound, negative guarding EXTREMITIES: No edema, pulses are equal bilaterally. No cyanosis or clubbing NEUROLOGY: Mood and affect appear appropriate. Cranial nerves II through XII grossly intact. Moving all extremities, speech is clear RIGHT UPPER EXTREMITY: Erythema has significantly improved and almost completely resolved. She continues to have some excoriations of the hypo- thenar region of the hand. Around her cuticles. Urinary Catheter: No Vascular Central Line Catheter: No A/P Assessment and Plan Right upper extremity recurrent cellulitis with mild lactic acidosis: Patient with history of right mastectomy, chronic right lymphedema with recurrent right upper extremity cellulitis. Patient has been admitted 2 times previously last month for same symptoms. Patient was discharged those times with clindamycin and then with Augmentin. Patient failed outpatient management at least 2 times in the last 30 days. Repeat lactic acid level was within normal range. Patient continued on Zosyn IV and clindamycin IV. Infectious disease evaluated the patient and recommended discontinuing IV antibiotics. Starting patient on Augmentin 500 mg every 8 hours. Plan to continue antibiotics for at least 5 more days. Also recommended patient wear compression device for her right upper extremity due to lymphedema. Dementia, hypertension, coronary artery disease, gastroesophageal reflux: We' ll continue home medications DVT prevention: Sequential compression devices Written by Tate Duque PA-C, acting as scribe for Dr. Clarke on 12/09/16 at 1450. The documentation accurately reflects the work and decisions performed face-to- face by Dr. Clarke on 11/1816 at 1450. Discharge Planning Discharge home today in stable condition Activity: ad ramirez Diet: Healthy hear diet Medication per medication reconciliation sheet Follow up with primary medical doctor in 1 week Tate Duque Dec 09, 2016 08:22
[2016-12-09] MEDS ORDERED: LACTIC ACID (AMMONIUM LACTATE) 12% LOTION 225 GM BTL TOPICAL SCH (09:00)
--- NOTE | 2016-12-09 09:03 | HHI.DCPOC ---
Discharge Care Plan Diagnosis: (1) Cellulitis of right arm (2) Sepsis Additional Problems If patient has diarrhea ask PCP to check for diarrhea. Follow up with insurance healthcare consultant. Goals to Promote Your Health Keep your skin well hydrated. Keep nails trimmed. Wear cotton gloves if picking on skin. Directions to Meet Your Goals Take your medications as prescribed Follow your dietary instruction Follow activity as directed Keep your appointments as scheduled Take your immunizations and boosters as scheduled If your symptoms worsen call your PCP, if no PCP go to Urgent Care Center or Emergency Room Smoking is Dangerous to Your Health. Avoid second hand smoke Call the 24-hour hour crisis hotline for domestic abuse at Dana Castaneda MD Dec 09, 2016 09:03
--- NOTE | 2016-12-09 09:04 | PD.ID.CON ---
History of Present Illness Service Infectious disease Consult Requested By CHELSEA Duque Reason for Consult Evaluation and management of recurrent right upper extremity cellulitis Primary Care Physician Chuck Cota MD Diagnoses: History of Present Illness Ms. Noel is a 71 -year-old female with past medical history significant for possible vascular/multi-infarct dementia, breast cancer status post mastectomy, chronic lymphedema in the right upper extremity, hypertension and coronary artery disease who presents to the hospital because of recurrent erythema possible cellulitis of the right upper extremity. Patient has been admitted in October twice once on November 05, 2016 and once on November 15, 2016 for similar symptoms. Patient was discharged home after IV antibiotics usually on Augmentin and clindamycin order not known. Patient presented to the hospital again this time with right upper extremity redness. There is no signs of fever or sepsis at the present time. Patient has been reports that he hasn' t paid much attention to the right upper extremity. But he promises to be more involved and keep an eye out for any skin changes by doing daily examinations. Patient's spouse reports that she has a habit of picking at her skin of her hands as well as her lips. Infectious disease is consulted for evaluation and management of recurrent right upper extremity cellulitis. Review of Systems ROS Limitations: Other (Dementia. ) Past Family Social History Allergies: Coded Allergies: Levaquin (Verified Allergy, Severe, REDNESS, 12/08/16) AT IV SITE AND SURROUNDING AREA Demerol (Verified Allergy, Intermediate, MAKES MIND FUZZY, 12/08/16) Vancomycin (Verified Allergy, Unknown, 12/08/16) Past Medical History Vascular dementia Right breast cancer Hypertension GERD Arthritis history of multiple TIAs with speech impediment Coronary artery disease Past Surgical History Right knee and right hip replacements Cataract surgery Mastectomy Reported Medications Reported Meds & Active Scripts Active Reported Stool Softener (Docusate Sodium) 100 Mg Cap BID Vitamin D-3 (Cholecalciferol) 1,000 Unit Tab 2,000 Units PO DAILY B-12 (Cobalamine Combinations) 100-5,000 Mcg Subl 1,000 Mcg PO DAILY Aspirin 325 Mg Tab 325 Mg PO DAILY Atorvastatin (Atorvastatin Calcium) 20 Mg Tab 20 Mg PO HS Metoprolol Succinate ER 24 HR (Metoprolol Succinate) 50 Mg Tab 50 Mg PO DAILY Hydrochlorothiazide 12.5 Mg Cap 12.5 Mg PO DAILY Nexium (Esomeprazole DR) 40 Mg Capdr 40 Mg PO DAILY Letrozole 2.5 Mg Tab PO DAILY Active Ordered Medications Current Medications Medications (Trade) Dose Ordered Sig/Suleman Route Start Time Stop Time Status Last Admin (NS 1000 ml Inj) 1,000 ml @ 100 mls/hr Q10H IV 12/08/16 02:12 12/09/16 07:39 (NS Flush) 2 ml UNSCH PRN FLUSH 12/08/16 02:15 (NS Flush) 2 ml BID FLUSH 12/08/16 09:00 (Zofran Inj) 4 mg Q6H PRN IVP 12/08/16 02:15 (Dulcolax Supp) 10 mg DAILY PRN LA 12/08/16 02:15 (Tylenol) 650 mg Q6H PRN PO 12/08/16 02:15 (Hayward 5-325 Mg) 1 tab Q4H PRN PO 12/08/16 02:15 (Hayward 10-325 Mg) 1 tab Q4H PRN PO 12/08/16 02:15 (Aspirin) 325 mg DAILY PO 12/08/16 09:00 12/09/16 07:37 (Lipitor) 20 mg HS PO 12/08/16 21:00 12/08/16 20:18 (Toprol Xl) 50 mg DAILY PO 12/08/16 09:00 12/09/16 07:37 (Protonix) 40 mg DAILY PO 12/08/16 09:00 12/09/16 07:37 (Lac-Hydrin 12% Lotion) 1 applic BID TOPICAL 12/09/16 09:00 (Augmentin) 500 mg Q8HR PO 12/09/16 09:30 Family History Reviewed with her and noncontributory to current infectious disease problems. Social History Patient quit smoking 20 years ago prior to that she smoked 2 cigarettes daily and she was 21. He drinks alcohol occasionally. No indication of illicit drugs Lives with her . Has cognitive issues and needs supervision. Physical Exam Vital Signs Vital Signs Date Time Temp Pulse Resp B/P Pulse Ox O2 Delivery O2 Flow Rate FiO2 12/09/16 08:00 98.0 2 19 166/71 96 12/09/16 07:30 99 21 12/09/16 00:00 97.0 65 18 113/44 98 12/08/16 20:00 95.9 60 18 126/66 96 12/08/16 19:16 99 12/08/16 16:00 97.2 56 20 138/53 98 12/08/16 12:00 96.9 59 20 159/68 100 12/08/16 10:30 99 21 12/08/16 09:10 62 Physical Exam GENERAL: Elderly white female well-developed patient, in no apparent distress. SKIN: Skin as described in hand section. HEAD: Atraumatic. Normocephalic. No temporal or scalp tenderness. EYES: Pupils equal round and reactive. Extraocular motions intact. No scleral icterus. No injection or drainage. ENT: Nose without bleeding, purulent drainage or septal hematoma. Oral mucosa moist. In the perioral area where the patient appears to be picking on the skin even during my examination there is areas of erythema noted. Throat without erythema, tonsillar hypertrophy or exudate. Uvula midline. Airway patent. NECK: Trachea midline. Supple, nontender, no meningeal signs. Right-sided mastectomy scar noted with chronic skin changes to just of lymphedema. Some mild atrial feet on the thenar aspect of the palm noted associated with chronic skin changes. Skin abrasions noted on the palmar aspect of the hand. During my visit with patient patient continued to use her long nails to peel on the skin. Skin breaks noted. On my exam today no residual signs of cellulitis noted. CARDIOVASCULAR: Heart sounds audible. RESPIRATORY: Clear to auscultation. Breath sounds equal bilaterally. GASTROINTESTINAL: Abdomen soft, non-tender, nondistended. MUSCULOSKELETAL: Extremities without clubbing, cyanosis, or edema. No joint tenderness, effusion, or edema noted. No calf tenderness. Negative Homans sign bilaterally. NEUROLOGICAL: Awake and alert. Grossly nonfocal. Psych: Flat affect IV line sites with no evidence of infection. Laboratory Laboratory Tests Test 12/08/16 12/09/16 13:00 06:50 Lactic Acid Level 1.3 White Blood Count 4.5 Red Blood Count 3.71 Hemoglobin 11.2 Hematocrit 33.6 Mean Corpuscular Volume 90.5 Mean Corpuscular Hemoglobin 30.3 Mean Corpuscular Hemoglobin 33.5 Concent Red Cell Distribution Width 13.1 Platelet Count 313 Mean Platelet Volume 8.1 Neutrophils (%) (Auto) 47.7 Lymphocytes (%) (Auto) 27.2 Monocytes (%) (Auto) 18.9 Eosinophils (%) (Auto) 5.5 Basophils (%) (Auto) 0.7 Neutrophils # (Auto) 2.3 Lymphocytes # (Auto) 1.2 Monocytes # (Auto) 0.8 Eosinophils # (Auto) 0.2 Basophils # (Auto) 0.0 CBC Comment DIFF FINAL Differential Comment Sodium Level 141 Potassium Level 4.1 Chloride Level 108 Carbon Dioxide Level 25.2 Anion Gap 8 Blood Urea Nitrogen 15 Creatinine 0.80 Estimat Glomerular Filtration 70 Rate Random Glucose 88 Calcium Level 8.3 Total Bilirubin 0.5 Aspartate Amino Transf 15 (AST/SGOT) Alanine Aminotransferase 18 (ALT/SGPT) Alkaline Phosphatase 60 Total Protein 6.0 Albumin 3.0 Date/Time Procedure Status Source Growth 12/08/16 13:00 Aerobic Blood Culture Received Blood Peripheral Pending 12/08/16 13:00 Anaerobic Blood Culture Received Blood Peripheral Pending Result Diagram: 12/09/16 0650 12/09/16 0650 Assessment and Plan Assessment and Plan Recurrent cellulitis of the right upper extremity Chronic skin changes of bilateral hands. Right upper extremity lymphedema postmastectomy noted. Osteoarthritis chronic. Chronic skin changes ? dermatitis vs post mastectomy skin changes. Also note hypothenar eminence with some atrophy noted. Chronic dementia ? vascular dementia ? from multiple TIAs in past. Recs DC Clinda DC Zosyn IV Start Augmentin oral Start Lachydrin local application. Follow up with dermatology. Ok to DC home today. Counseled to trim nails of hand and use compression stocking for RUE as directed for post mastectomy patients. Will sign off please call back if any change in clinical condition or questions. d/w CHELSEA Duque and . Dana Castaneda MD Dec 09, 2016 09:04
[2016-12-09] MEDS: AMOXICILLIN/CLAVULANATE K 500 MG TAB PO SCH ×2 (10:57→14:00)
[2016-12-09] MEDS ORDERED: AUGM500T7 PO (11:43)
[2016-12-09 12:00] VITALS: BP 142/78; PULSE 80; RESP 18; TEMP 97.9; O2SAT 95
== END 2016-12-09 15:28 | disposition home or self-care (01) | DRG 603 ==
LOC: PHED 22:56 → PHEDA 12-08 05:04 → PH3B 12-08 07:53
PROVIDERS: ADMIT Family Medicine; ATTEND Family Medicine
DX: L03.113 Cellulitis of right upper limb (principal); E87.2 Acidosis; F01.50 Vascular dementia, unspecified severity, without behavioral disturbance, psychotic disturbance, mood disturbance, and anxiety; I69.828 Other speech and language deficits following other cerebrovascular disease; I10 Essential (primary) hypertension; I25.10 Atherosclerotic heart disease of native coronary artery without angina pectoris; I89.0 Lymphedema, not elsewhere classified; M19.90 Unspecified osteoarthritis, unspecified site; K21.9 Gastro-esophageal reflux disease without esophagitis; Z87.891 Personal history of nicotine dependence; Z88.1 Allergy status to other antibiotic agents; Z88.5 Allergy status to narcotic agent; L98.9 Disorder of the skin and subcutaneous tissue, unspecified; Z85.3 Personal history of malignant neoplasm of breast; Z92.3 Personal history of irradiation; Z90.11 Acquired absence of right breast and nipple; Z92.21 Personal history of antineoplastic chemotherapy
CPT/HCPCS: 80048; 80053; 83605; 85025; 87040; 96365; 96367; J2543; J7030; J7040

== ENCOUNTER 2017-05-06 19:25 | Inpatient (IN) | payer OTHER, MEDICARE ==
[~2017-05-06] VITALS: Ht 162.6 cm; Wt 58.0 kg
[~2017-05-06 19:25] MED LIST changes: -AMOX875T2 PO; +AUGM500T7 PO; -LACTCAP8 PO
[2017-05-06 19:54] VITALS: BP 170/69; PULSE 68; RESP 16; TEMP 99.5; O2SAT 97
[2017-05-06] MEDS ORDERED: SODIUM CHLOR 0.9% 1000 ML INJ 1,000 ML IV ONE (20:15)
[2017-05-06] MEDS ORDERED: PIPERACIL-TAZO 4.5 GM PREMIX 100 ML IV ONE (20:15)
--- NOTE | 2017-05-06 20:25 | PD ---
HPI Chief Complaint: Skin Problem Time Seen by Provider: 20:00 Travel History International Travel<30 days: No Contact w/Intl Traveler<30days: No Traveled to known affect area: No History of Present Illness HPI The patient is a 72-year-old female who presents to the emergency department for right upper extremity cellulitis. The patient has a history of remote breast cancer with subsequent axillary lymph node dissection and removal. The patient has a history of chronic lymphedema to the right upper extremity and has had multiple episodes of spontaneous cellulitis with sepsis to the right upper extremity. The patient's symptoms started earlier today, now notes her entire right upper extremity is red, with the redness spreading toward the right axilla. The patient is a somewhat limited historian according to family members, however, she denies any pain or history of DVTs. She does note a history of recurrent cellulitis to the right upper extremity. She denies taking any immunosuppressive medications her chemotherapeutic medications currently. She denies any fever, chills, or sweats. Symptoms are moderate, similar to previous cellulitis, and there are no current alleviating factors. PFSH Past Medical History Arthritis: Yes Autoimmune Disease: No Anxiety: No Depression: No Heart Rhythm Problems: No Cancer: Yes (R breast) Cardiovascular Problems: Yes (HTN) High Cholesterol: No Chemotherapy: Yes (28 YRS AGO FOR BREAST CA) Congestive Heart Failure: No Cerebrovascular Accident: Yes (TIAs) Diabetes: No Diminished Hearing: No Endocrine: No Gastrointestinal Disorders: Yes GERD: Yes (GERD) Genitourinary: No Hiatal Hernia: No Hypertension: Yes Immune Disorder: No Musculoskeletal: Yes Neurologic: Yes (dementia) Psychiatric: Yes (Dementia) Reproductive: No Respiratory: No Migraines: No Radiation Therapy: Yes Seizures: No Thyroid Disease: No Ulcer: No Past Surgical History Abdominal Surgery: No AICD: No Arteriovenous Shunt: No Body Medical Devices: cataract implants Cardiac Surgery: No Ear Surgery: No Endocrine Surgery: No Eye Surgery: Yes (cataracts) Genitourinary Surgery: No Gynecologic Surgery: No Insulin Pump: No Joint Replacement: Yes Oral Surgery: No Pacemaker: No Thoracic Surgery: No Other Surgery: Yes (rt mastectomy ) Social History Alcohol Use: No Tobacco Use: No Substance Use: No Allergies-Medications (Allergen,Severity, Reaction): Coded Allergies: Levaquin (Verified Allergy, Severe, REDNESS, 05/06/17) AT IV SITE AND SURROUNDING AREA Demerol (Verified Allergy, Intermediate, MAKES MIND FUZZY, 05/06/17) Vancomycin (Verified Allergy, Unknown, 05/06/17) Reported Meds & Prescriptions Reported Meds & Active Scripts Active Augmentin (Amoxicillin-Clavulanate) 500-125 mg Tab 500 Mg PO Q8HR Reported Stool Softener (Docusate Sodium) 100 Mg Cap BID Vitamin D-3 (Cholecalciferol) 1,000 Unit Tab 2,000 Units PO DAILY B-12 (Cobalamine Combinations) 100-5,000 Mcg Subl 1,000 Mcg PO DAILY Aspirin 325 Mg Tab 325 Mg PO DAILY Atorvastatin (Atorvastatin Calcium) 20 Mg Tab 20 Mg PO HS Metoprolol Succinate ER 24 HR (Metoprolol Succinate) 50 Mg Tab 50 Mg PO DAILY Hydrochlorothiazide 12.5 Mg Cap 12.5 Mg PO DAILY Nexium (Esomeprazole DR) 40 Mg Capdr 40 Mg PO DAILY Letrozole 2.5 Mg Tab PO DAILY Review of Systems Except as stated in HPI: all other systems reviewed are Neg General / Constitutional: No: Fever, Chills Cardiovascular: No: Chest Pain or Discomfort Respiratory: No: Shortness of Breath Gastrointestinal: No: Nausea, Vomiting Musculoskeletal: Positive: Edema, No: Pain Skin: Positive Other (redness to the right upper extremity) Physical Exam Narrative GENERAL: Awake, alert, very pleasant 72-year-old female who appears her stated age and is in no acute respiratory distress. SKIN: Focused skin assessment warm/dry. HEAD: Atraumatic. Normocephalic. EYES: No injection or drainage. ENT: No nasal bleeding or discharge. Mucous membranes pink and moist. NECK: Trachea midline. No JVD. CARDIOVASCULAR: Regular rate and rhythm. Holosystolic murmur. RESPIRATORY: No accessory muscle use. Clear to auscultation. Breath sounds equal bilaterally. GASTROINTESTINAL: Abdomen soft, non-tender, nondistended. No rebound tenderness. MUSCULOSKELETAL: The right upper extremity is edematous when compared to the left with erythema that ranges from the right axilla down to the right wrist. No obvious injection injection point or abscess. Patient has full range of motion with flexion extension right elbow. Positive right radial pulse. NEUROLOGICAL: Awake and alert. No obvious cranial nerve deficits. Motor grossly within normal limits. Normal speech. PSYCHIATRIC: Appropriate mood and affect; insight and judgment normal. Data Data Last Documented VS Vital Signs Date Time Temp Pulse Resp B/P Pulse Ox O2 Delivery O2 Flow Rate FiO2 05/06/17 21:50 76 20 154/67 95 Room Air 05/06/17 19:54 99.5 Orders Complete Blood Count With Diff (05/06/17 20:07) Comprehensive Metabolic Panel (05/06/17 20:07) Lactic Acid (05/06/17 20:07) Blood Culture (05/06/17 20:07) Sodium Chlor 0.9% 1000 Ml Inj (Ns 1000 M (05/06/17 20:15) Piperacil-Tazo 4.5 Gm Premix (Zosyn 4.5 (05/06/17 20:15) Admit Order (Ed Use Only) (05/06/17 22:12) Labs Laboratory Tests Test 05/06/17 21:25 White Blood Count 17.1 TH/MM3 Red Blood Count 4.42 MIL/MM3 Hemoglobin 13.4 GM/DL Hematocrit 39.3 % Mean Corpuscular Volume 88.9 FL Mean Corpuscular Hemoglobin 30.3 PG Mean Corpuscular Hemoglobin 34.2 % Concent Red Cell Distribution Width 12.8 % Platelet Count 346 TH/MM3 Mean Platelet Volume 8.2 FL Neutrophils (%) (Auto) 88.8 % Lymphocytes (%) (Auto) 4.3 % Monocytes (%) (Auto) 5.7 % Eosinophils (%) (Auto) 1.0 % Basophils (%) (Auto) 0.2 % Neutrophils # (Auto) 15.2 TH/MM3 Lymphocytes # (Auto) 0.7 TH/MM3 Monocytes # (Auto) 1.0 TH/MM3 Eosinophils # (Auto) 0.2 TH/MM3 Basophils # (Auto) 0.0 TH/MM3 CBC Comment DIFF FINAL Differential Comment Sodium Level 136 MEQ/L Potassium Level 4.3 MEQ/L Chloride Level 98 MEQ/L Carbon Dioxide Level 29.5 MEQ/L Anion Gap 9 MEQ/L Blood Urea Nitrogen 19 MG/DL Creatinine 0.84 MG/DL Estimat Glomerular Filtration 66 ML/MIN Rate Random Glucose 118 MG/DL Lactic Acid Level 1.7 mmol/L Calcium Level 9.1 MG/DL Total Bilirubin 0.5 MG/DL Aspartate Amino Transf 32 U/L (AST/SGOT) Alanine Aminotransferase 60 U/L (ALT/SGPT) Alkaline Phosphatase 112 U/L Total Protein 7.3 GM/DL Albumin 3.8 GM/DL MDM Medical Decision Making Medical Screen Exam Complete: Yes Emergency Medical Condition: Yes Medical Record Reviewed: Yes Interpretation(s) Laboratory Tests Test 05/06/17 21:25 White Blood Count 17.1 TH/MM3 Red Blood Count 4.42 MIL/MM3 Hemoglobin 13.4 GM/DL Hematocrit 39.3 % Mean Corpuscular Volume 88.9 FL Mean Corpuscular Hemoglobin 30.3 PG Mean Corpuscular Hemoglobin 34.2 % Concent Red Cell Distribution Width 12.8 % Platelet Count 346 TH/MM3 Mean Platelet Volume 8.2 FL Neutrophils (%) (Auto) 88.8 % Lymphocytes (%) (Auto) 4.3 % Monocytes (%) (Auto) 5.7 % Eosinophils (%) (Auto) 1.0 % Basophils (%) (Auto) 0.2 % Neutrophils # (Auto) 15.2 TH/MM3 Lymphocytes # (Auto) 0.7 TH/MM3 Monocytes # (Auto) 1.0 TH/MM3 Eosinophils # (Auto) 0.2 TH/MM3 Basophils # (Auto) 0.0 TH/MM3 CBC Comment DIFF FINAL Differential Comment Sodium Level 136 MEQ/L Potassium Level 4.3 MEQ/L Chloride Level 98 MEQ/L Carbon Dioxide Level 29.5 MEQ/L Anion Gap 9 MEQ/L Blood Urea Nitrogen 19 MG/DL Creatinine 0.84 MG/DL Estimat Glomerular Filtration 66 ML/MIN Rate Random Glucose 118 MG/DL Lactic Acid Level 1.7 mmol/L Calcium Level 9.1 MG/DL Total Bilirubin 0.5 MG/DL Aspartate Amino Transf 32 U/L (AST/SGOT) Alanine Aminotransferase 60 U/L (ALT/SGPT) Alkaline Phosphatase 112 U/L Total Protein 7.3 GM/DL Albumin 3.8 GM/DL Differential Diagnosis Differential diagnosis includes lymphedema, cellulitis, DVT, abscess, septic joint, bacteremia, septicemia. Narrative Course IV was established, labs are drawn and sent, and the patient was placed on cardiac telemetry monitoring and continuous pulse oximetry monitoring. Blood cultures and lactic acid were sent to lab and the patient was then administered Zosyn 4.5 g intravenously as she is allergic to Levaquin and vancomycin. The patient's white count is 17.1, lactic acid is normal, BUN is slightly elevated. I reviewed the EMR, she has been seen by the infectious disease physician, Dr. Castaneda in the past and was transitioned to Augmentin after 24 hours of IV antibiotics, it appears she had good results. Therefore, patient be 23 hour observation for IV antibiotics, repeat CBC, when patient's white count is improving and the redness is decreasing, patient most likely can be transitioned to Augmentin and discharged home. The patient's primary physician is Dr. Cota, patient has [employer], therefore, [facility] were paged for observation. Procedures Procedure Narrative I placed a 20-gauge, 1.88 inch, ultrasound-guided IV in the left upper extremity using a linear probe. There was good blood return and the IV flowed easily. The patient tolerated the procedure without difficulty and there was no obvious complications. Sepsis Criteria SIRS Criteria (2 or more): WBC > 64205, < 4000 or > 10% bands Physician Communication Physician Communication The patient's primary physician is Dr. Cota, she has [employer], therefore, [facility] were paged for 23 hour observation. I discussed the patient with Dr. Chowdhury who agrees with 23 hour observation. Diagnosis Primary Impression: Cellulitis of right arm Admitting Information Admitting Physician Requests: Observation Condition: Stable Jack Alcocer MD May 06, 2017 20:25
[2017-05-06 21:43] LABS: AUTOMATED NEUTROPHIL # 15.2 TH/MM3 (1.8-7.7); BASOPHIL % 0.2 % (0.0-2.0); EOSINOPHIL # 0.2 TH/MM3 (0-0.4); HEMATOCRIT 39.3 % (35.0-46.0); LYMPH % 4.3 % (9.0-44.0); LYMPHOCYTE # 0.7 TH/MM3 (1.0-4.8); MEAN CELL VOLUME 88.9 FL (80.0-100.0); MEAN CORPUSCULAR HEMOGLOBIN 30.3 PG (27.0-34.0); MEAN CORPUSCULAR HGB CONC 34.2 % (32.0-36.0); MONO % 5.7 % (0.0-8.0); NEUT % 88.8 % (16.0-70.0); PLATELET COUNT 346 TH/MM3 (150-450); RED BLOOD COUNT 4.42 MIL/MM3 (4.00-5.30); RED CELL DISTRIBUTION WIDTH 12.8 % (11.6-17.2); WHITE BLOOD COUNT 17.1 TH/MM3 (4.0-11.0)
[2017-05-06 21:45] LABS: HEMO FLAGS DIFF FINAL
[2017-05-06 21:50] VITALS: BP 154/67; PULSE 76; RESP 20; O2SAT 95
[2017-05-06 21:50] LABS: CHLORIDE 98 MEQ/L (98-107); POTASSIUM 4.3 MEQ/L (3.5-5.1); SODIUM (NA) 136 MEQ/L (136-145)
[2017-05-06 21:54] LABS: ANION GAP 9 MEQ/L (5-15); BICARBONATE 29.5 MEQ/L (21.0-32.0); BLOOD UREA NITROGEN 19 MG/DL (7-18)
[2017-05-06 21:57] LABS: ALT (GPT) 60 U/L (10-53); AST (GOT) 32 U/L (15-37); GLOMERULAR FILTRATION RATE 66 ML/MIN (>89)
[2017-05-06 21:58] LABS: TOTAL BILIRUBIN ADULT 0.5 MG/DL (0.2-1.0)
[2017-05-06 22:00] LABS: ALKALINE PHOSPHATASE 112 U/L (45-117)
[2017-05-06] MEDS ORDERED: ACETAMINOPHEN/HYDROcodone 325 MG/5 MG TAB PO PRN (22:15)
[2017-05-06] MEDS ORDERED: SENNOSIDES 8.6 MG TAB PO PRN (22:15)
[2017-05-06] MEDS ORDERED: MAGNESIUM HYDROXIDE SUSP 30 ML CUP PO PRN (22:15)
[2017-05-06] MEDS ORDERED: ONDANSETRON HCL 4 MG/2 ML VIAL IVP PRN (22:15)
[2017-05-06] MEDS ORDERED: ACETAMINOPHEN 325 MG TAB PO PRN (22:15)
[2017-05-06] MEDS ORDERED: LACTULOSE SYRUP 20 GM/30 ML CUP PO PRN (22:15)
[2017-05-06] MEDS ORDERED: BISACODYL 10 MG SUPP RECTAL PRN (22:15)
[2017-05-06] MEDS ORDERED: MORPHINE SULFATE 8 MG/ML INJ IV PUSH PRN (22:30)
[2017-05-06 23:07] VITALS: BP 163/72; PULSE 80; RESP 18; O2SAT 98
[2017-05-07] VITALS (9 sets, daily range): BP systolic 112–160; BP diastolic 47–74; PULSE 55–77; RESP 14–20; TEMP 96.9–98.8; O2SAT 96–98
[2017-05-07] MEDS: PIPERACIL-TAZO 4.5 GM PREMIX 100 ML IV SCH ×4 (04:21→22:00)
[2017-05-07] MEDS: SODIUM CHLORIDE 0.9% FLUSH 10 ML FLUSH IV FLUSH SCH ×2 (08:00→20:30)
[2017-05-07] MEDS: ASPIRIN 325 MG TAB PO SCH (08:01)
[2017-05-07] MEDS: DOCUSATE SODIUM 50 MG/SENNA 8.6 MG TAB PO SCH ×2 (08:01→20:30)
[2017-05-07] MEDS: PANTOPRAZOLE SOD 40 MG DELAYED RELEASE TAB PO SCH (08:01)
[2017-05-07] MEDS: METOPROLOL SUCCINATE 50 MG EXTENDED RELEASE TAB PO SCH (08:01)
[2017-05-07] MEDS: HYDROCHLOROTHIAZIDE 12.5 MG CAP PO SCH (08:09)
[2017-05-07 08:58] LABS: CHLORIDE 102 MEQ/L (98-107); POTASSIUM 3.5 MEQ/L (3.5-5.1); SODIUM (NA) 137 MEQ/L (136-145)
[2017-05-07 09:02] LABS: AUTOMATED NEUTROPHIL # 11.4 TH/MM3 (1.8-7.7); BASOPHIL # 0.3 TH/MM3 (0-0.2); BASOPHIL % 2.4 % (0.0-2.0); EOSINOPHIL # 0.2 TH/MM3 (0-0.4); EOSINOPHIL % 1.2 % (0.0-4.0); HEMATOCRIT 39.3 % (35.0-46.0); LYMPH % 9.7 % (9.0-44.0); LYMPHOCYTE # 1.4 TH/MM3 (1.0-4.8); MEAN CELL VOLUME 89.5 FL (80.0-100.0); MEAN CORPUSCULAR HEMOGLOBIN 30.1 PG (27.0-34.0); MEAN CORPUSCULAR HGB CONC 33.6 % (32.0-36.0); MONO % 7.9 % (0.0-8.0); NEUT % 78.8 % (16.0-70.0); PLATELET COUNT 331 TH/MM3 (150-450); RED BLOOD COUNT 4.38 MIL/MM3 (4.00-5.30); RED CELL DISTRIBUTION WIDTH 12.9 % (11.6-17.2); WHITE BLOOD COUNT 14.4 TH/MM3 (4.0-11.0)
[2017-05-07 09:03] LABS: ANION GAP 10 MEQ/L (5-15); BICARBONATE 25.4 MEQ/L (21.0-32.0); BLOOD UREA NITROGEN 13 MG/DL (7-18)
[2017-05-07 09:05] LABS: HEMO FLAGS AUTO DIFF
[2017-05-07 09:06] LABS: ALT (GPT) 56 U/L (10-53); AST (GOT) 34 U/L (15-37); GLOMERULAR FILTRATION RATE 63 ML/MIN (>89)
[2017-05-07 09:08] LABS: TOTAL BILIRUBIN ADULT 0.9 MG/DL (0.2-1.0)
[2017-05-07 09:09] LABS: ALKALINE PHOSPHATASE 96 U/L (45-117)
[2017-05-07 10:05] LABS: OVALOCYTES 1+ (NORMAL); PLATELET ESTIMATE SMEAR NORMAL (NORMAL); PLATELET MORPHOLOGY NORMAL (NORMAL); SCAN/DIFF AUTO DIFF CONFIRMED
--- NOTE | 2017-05-07 13:09 | HHI.HP ---
[facility] Service [facility] Primary Care Physician Chuck Cota MD Admission Diagnosis right upper extremity cellulitis with chronic lymphedema Diagnoses: Chief Complaint: Right upper extremity sialitis Travel History International Travel<30 Days: No Contact w/Intl Traveler <30 Da: No Traveled to Known Affected Are: No History of Present Illness History is obtained from spouse due to patient's vascular dementia This patient is 72-year-old female with recurrent right upper extremity cellulitis. Last episode was about 3 months ago for which she received IV antibiotics and was sent home on oral antibiotics. She has a history of breast cancer with right axillary lymph node resection. She is home with her who says that her symptoms began in the last 24 hours and there were 7 with acute onset of confusion and lethargy and redness in her arm. This is similar to previous episodes which progressed rapidly to sepsis and due to that the patient did come urgently to the hospital. She is supposedly where her arm sleeve and has done that periodically with however is not consistent. Both of her hands have significant abrasions and there is some skin that is chapped with open areas. I did speak with the patient's spouse regarding skin care to prevent injury of bacteria into her soft tissues to prevent future episodes of cellulitis to the best of my ability. He expressed understanding. Patient's erythema and edema has gotten better since starting of Zosyn in the emergency room. Patient is admitted observed in the hospital for further antibiotic therapy Review of Systems ROS Limitations: Poor Historian (due to dementia) Constitutional: DENIES: Diaphoretic episodes, Fatigue, Fever, Weight gain, Weight loss, Chills, Dizziness, Change in appetite, Night Sweats Endocrine: DENIES: Abnorml menstrual pattern, Heat/cold intolerance, Polydipsia , Polyuria, Polyphagia Eyes: DENIES: Blurred vision, Diplopia, Eye inflammation, Eye pain, Vision loss , Photosensitivity, Double Vision Ears, nose, mouth, throat: DENIES: Tinnitus, Hearing loss, Vertigo, Nasal discharge, Oral lesions, Throat pain, Hoarseness, Ear Pain, Running Nose, Epistaxis, Sinus Pain, Toothache, Odynophagia Respiratory: DENIES: Apneas, Cough, Snoring, Wheezing, Hemoptysis, Sputum production, Shortness of breath Cardiovascular: DENIES: Chest pain, Palpitations, Syncope, Dyspnea on Exertion , PND, Lower Extremity Edema, Orthopnea, Claudication Gastrointestinal: DENIES: Abdominal pain, Black stools, Bloody stools, Constipation, Diarrhea, Nausea, Vomiting, Difficulty Swallowing, Anorexia Genitourinary: DENIES: Abnormal vaginal bleeding, Dysmenorrhea, Dyspareunia, Sexual dysfunction, Urinary frequency, Urinary incontinence, Urgency, Hematuria , Dysuria, Nocturia, Vaginal discharge Musculoskeletal: DENIES: Joint pain, Muscle aches, Stiffness, Joint Swelling, Back pain, Neck pain Integumentary: DENIES: Abnormal pigmentation, Pruritus, Rash, Nail changes, Breast masses, Breast skin changes, Nipple discharge Hematologic/lymphatic: DENIES: Bruising, Lymphadenopathy Immunologic/allergic: DENIES: Eczema, Urticaria Neurologic: DENIES: Abnormal gait, Headache, Localized weakness, Paresthesias, Seizures, Speech Problems, Tremor, Poor Balance Psychiatric: COMPLAINS OF: Confusion, DENIES: Anxiety, Mood changes, Depression, Hallucinations, Agitation, Suicidal Ideation, Homicidal Ideation, Delusions Past Family Social History Past Medical History Dementia, vascular Breast cancer Hypertension Past Surgical History Right mastectomy with lymph node dissection Cataracts Reported Medications Reviewed and the medical record, no recent antibiotics Allergies: Coded Allergies: Levaquin (Verified Allergy, Severe, REDNESS, 05/06/17) AT IV SITE AND SURROUNDING AREA Demerol (Verified Allergy, Intermediate, MAKES MIND FUZZY, 05/06/17) Vancomycin (Verified Allergy, Unknown, 05/06/17) Active Ordered Medications Reviewed in the medical record Family History Hypertension Social History , no tobacco or alcohol dependency Physical Exam Vital Signs Vital Signs Date Time Temp Pulse Resp B/P Pulse Ox O2 Delivery O2 Flow Rate FiO2 05/07/17 09:43 58 16 115/47 96 Room Air 05/07/17 07:10 98.8 55 14 134/51 98 Room Air 05/07/17 06:05 60 16 130/52 98 Room Air 05/07/17 04:21 61 15 138/56 97 Room Air 05/07/17 02:19 64 16 125/53 97 Room Air 05/07/17 00:45 98.6 71 18 160/68 98 Room Air 05/06/17 23:07 80 18 163/72 98 Room Air 05/06/17 21:50 76 20 154/67 95 Room Air 05/06/17 19:54 99.5 68 16 170/69 97 Physical Exam GENERAL: This is a well-nourished, well-developed patient, in no apparent distress. SKIN: No rashes, ecchymoses or lesions. Cool and dry. HEAD: Atraumatic. Normocephalic. No temporal or scalp tenderness. EYES: Pupils equal round and reactive. Extraocular motions intact. No scleral icterus. No injection or drainage. ENT: Nose without bleeding, purulent drainage or septal hematoma. Throat without erythema, tonsillar hypertrophy or exudate. Uvula midline. Airway patent. NECK: Trachea midline. No JVD or lymphadenopathy. Supple, nontender, no meningeal signs. CARDIOVASCULAR: Regular rate and rhythm without murmurs, gallops, or rubs. RESPIRATORY: Clear to auscultation. Breath sounds equal bilaterally. No wheezes , rales, or rhonchi. GASTROINTESTINAL: Abdomen soft, non-tender, nondistended. No hepato-splenomegaly , or palpable masses. No guarding. MUSCULOSKELETAL: Extremities without clubbing, cyanosis, or edema. No joint tenderness, effusion, or edema noted. No calf tenderness. Negative Homans sign bilaterally. NEUROLOGICAL: Awake and alert. Cranial nerves II through XII intact. Motor and sensory grossly within normal limits. Five out of 5 muscle strength in all muscle groups. Normal speech. Laboratory Laboratory Tests Test 05/06/17 05/07/17 21:25 08:30 White Blood Count 17.1 14.4 Red Blood Count 4.42 4.38 Hemoglobin 13.4 13.2 Hematocrit 39.3 39.3 Mean Corpuscular Volume 88.9 89.5 Mean Corpuscular Hemoglobin 30.3 30.1 Mean Corpuscular Hemoglobin 34.2 33.6 Concent Red Cell Distribution Width 12.8 12.9 Platelet Count 346 331 Mean Platelet Volume 8.2 8.8 Neutrophils (%) (Auto) 88.8 78.8 Lymphocytes (%) (Auto) 4.3 9.7 Monocytes (%) (Auto) 5.7 7.9 Eosinophils (%) (Auto) 1.0 1.2 Basophils (%) (Auto) 0.2 2.4 Neutrophils # (Auto) 15.2 11.4 Lymphocytes # (Auto) 0.7 1.4 Monocytes # (Auto) 1.0 1.1 Eosinophils # (Auto) 0.2 0.2 Basophils # (Auto) 0.0 0.3 CBC Comment DIFF FINAL AUTO DIFF Differential Comment AUTO DIFF CONFIRMED Sodium Level 136 137 Potassium Level 4.3 3.5 Chloride Level 98 102 Carbon Dioxide Level 29.5 25.4 Anion Gap 9 10 Blood Urea Nitrogen 19 13 Creatinine 0.84 0.88 Estimat Glomerular Filtration 66 63 Rate Random Glucose 118 101 Lactic Acid Level 1.7 Calcium Level 9.1 8.6 Total Bilirubin 0.5 0.9 Aspartate Amino Transf 32 34 (AST/SGOT) Alanine Aminotransferase 60 56 (ALT/SGPT) Alkaline Phosphatase 112 96 Total Protein 7.3 6.8 Albumin 3.8 3.3 Platelet Estimate NORMAL Platelet Morphology Comment NORMAL Ovalocytes 1+ Date/Time Procedure Status Source Growth 05/06/17 21:30 Aerobic Blood Culture - Preliminary Resulted Blood Peripheral NO GROWTH IN 1 DAY 05/06/17 21:30 Anaerobic Blood Culture - Preliminary Resulted Blood Peripheral NO GROWTH IN 1 DAY Result Diagram: 05/07/17 0830 05/07/17 0830 Assessment and Plan Problem List: (1) Cellulitis of right arm ICD Code: L03.113 Status: Acute Plan: continue zosyn if improved change to PO in the am (2) Dementia ICD Code: F03.90 Status: Chronic Plan: stable, spouse POA no disturbance or psychotic symptoms (3) HTN (hypertension) ICD Code: I10 Status: Acute Plan: Bozena Vaughn MD May 07, 2017 13:09
[2017-05-07] MEDS: EUCERIN CREAM 120 GM JAR TOPICAL SCH (20:29)
[2017-05-07] MEDS: CLOBETASOL 0.05% TOPICAL SCH (20:29)
[2017-05-07] MEDS: ATORVASTATIN 20 MG TAB PO SCH (20:30)
[2017-05-08] VITALS (7 sets, daily range): BP systolic 100–184; BP diastolic 41–90; PULSE 51–63; RESP 17–20; TEMP 95.5–98; O2SAT 96–99
[2017-05-08] MEDS: PIPERACIL-TAZO 4.5 GM PREMIX 100 ML IV SCH ×4 (03:03→21:18)
[2017-05-08] MEDS: SODIUM CHLORIDE 0.9% FLUSH 10 ML FLUSH IV FLUSH SCH ×2 (08:48→21:14)
[2017-05-08] MEDS: ASPIRIN 325 MG TAB PO SCH (08:49)
[2017-05-08] MEDS: PANTOPRAZOLE SOD 40 MG DELAYED RELEASE TAB PO SCH (08:49)
[2017-05-08] MEDS: DOCUSATE SODIUM 50 MG/SENNA 8.6 MG TAB PO SCH ×2 (08:49→21:13)
[2017-05-08] MEDS: METOPROLOL SUCCINATE 50 MG EXTENDED RELEASE TAB PO SCH (08:50)
[2017-05-08] MEDS: HYDROCHLOROTHIAZIDE 12.5 MG CAP PO SCH (08:50)
[2017-05-08] MEDS: CLOBETASOL 0.05% TOPICAL SCH ×2 (08:51→21:00)
[2017-05-08] MEDS: EUCERIN CREAM 120 GM JAR TOPICAL SCH ×2 (08:51→21:15)
[2017-05-08] MEDS ORDERED: AUGM500T7 PO (11:26)
[2017-05-08] MEDS ORDERED: Eucerin Cream TOPICAL (11:27)
--- NOTE | 2017-05-08 11:27 | HHI.DCPOC ---
Discharge Care Plan Diagnosis: (1) Dementia (2) Cellulitis of right arm Goals to Promote Your Health * To prevent worsening of your condition and complications * To maintain your health at the optimal level Directions to Meet Your Goals Take your medications as prescribed Follow your dietary instruction Follow activity as directed Keep your appointments as scheduled Take your immunizations and boosters as scheduled If your symptoms worsen call your PCP, if no PCP go to Urgent Care Center or Emergency Room Smoking is Dangerous to Your Health. Avoid second hand smoke Call the 24-hour hour crisis hotline for domestic abuse at Bozena Taveras MD May 08, 2017 11:27
--- NOTE | 2017-05-08 11:28 | HHI.DS ---
katheryn Discharge Summary Admission Date May 06, 2017 at 22:13 Discharge Date: May 08, 2017 Admitting Diagnosis right upper extremity cellulitis with chronic lymphedema (1) Cellulitis of right arm ICD Code: L03.113 (2) Dementia ICD Code: F03.90 (3) HTN (hypertension) ICD Code: I10 Procedures none Brief History - From Admission History is obtained from spouse due to patient's vascular dementia This patient is 72-year-old female with recurrent right upper extremity cellulitis. Last episode was about 3 months ago for which she received IV antibiotics and was sent home on oral antibiotics. She has a history of breast cancer with right axillary lymph node resection. She is home with her who says that her symptoms began in the last 24 hours and there were 7 with acute onset of confusion and lethargy and redness in her arm. This is similar to previous episodes which progressed rapidly to sepsis and due to that the patient did come urgently to the hospital. She is supposedly where her arm sleeve and has done that periodically with however is not consistent. Both of her hands have significant abrasions and there is some skin that is chapped with open areas. I did speak with the patient's spouse regarding skin care to prevent injury of bacteria into her soft tissues to prevent future episodes of cellulitis to the best of my ability. He expressed understanding. Patient's erythema and edema has gotten better since starting of Zosyn in the emergency room. Patient is admitted observed in the hospital for further antibiotic therapy CBC/BMP: 05/07/17 0830 05/07/17 0830 Significant Findings Laboratory Tests Test 05/06/17 05/07/17 21:25 08:30 White Blood Count 17.1 TH/MM3 14.4 TH/MM3 (4.0-11.0) (4.0-11.0) Neutrophils (%) (Auto) 88.8 % 78.8 % (16.0-70.0) (16.0-70.0) Lymphocytes (%) (Auto) 4.3 % (9.0-44.0) Neutrophils # (Auto) 15.2 TH/MM3 11.4 TH/MM3 (1.8-7.7) (1.8-7.7) Lymphocytes # (Auto) 0.7 TH/MM3 (1.0-4.8) Monocytes # (Auto) 1.0 TH/MM3 1.1 TH/MM3 (0-0.9) (0-0.9) Blood Urea Nitrogen 19 MG/DL (7-18) Estimat Glomerular Filtration 66 ML/MIN (>89) 63 ML/MIN (>89) Rate Random Glucose 118 MG/DL (74-106) Alanine Aminotransferase 60 U/L (10-53) 56 U/L (10-53) (ALT/SGPT) Basophils (%) (Auto) 2.4 % (0.0-2.0) Basophils # (Auto) 0.3 TH/MM3 (0-0.2) Ovalocytes 1+ (NORMAL) Albumin 3.3 GM/DL (3.4-5.0) PE at Discharge GENERAL: This is a well-nourished, well-developed patient, in no apparent distress. CARDIOVASCULAR: Regular rate and rhythm without murmurs, gallops, or rubs. RESPIRATORY: Clear to auscultation. Breath sounds equal bilaterally. No wheezes , rales, or rhonchi. GASTROINTESTINAL: Abdomen soft, non-tender, nondistended. Normal active bowel sounds MUSCULOSKELETAL: less erythema in right arm, other 3 Extremities without clubbing, cyanosis, or edema. NEURO: Oriented to person. Poor communication due to dementia Moves all ext x4 Pt update on day of discharge Patient seen and evaluated today in follow-up for right extremity recurrent cellulitis and chronic lymphedema. Erythema and edema is greatly improved. Patient tolerating antibiotics without difficulty. Discharge plans discussed with patient, nursing team and spells or in agreement. Hospital Course Patient is a 72-year-old female with a history of breast or dementia who has recurrent right arm cellulitis due to lymphedema with a history of breast cancer and lymph node resection. Patient has difficulty with adherence her lymphedema sleeve and does not keep her hands moisturized as previously recommended with multiple hospitals urgent for the same issue. Her is aware of this but has difficulty keeping up with his due to her dementia. Patient was started on IV antibiotics. There was no fever patient normally has low temperatures and the patient has improvement in her leukocytosis. Patient was discharged on oral antibiotics to complete and recommended follow up with infectious disease for further recommendations for recurrent infection. Pt Condition on Discharge: Good Discharge Disposition: Discharge Home Discharge Time: > 30 minutes Discharge Instructions DIET: Follow Instructions for: As Tolerated, No Restrictions Activities you can perform: Regular-No Restrictions Follow up Referrals: Infectious Disease - 1 Month with bubba New Medications: Amoxicillin-Clavulanate (Amoxicillin-Clavulanate) 500-125 mg Tab 500 MG PO BID Infection #20 Ref 0 TAB ([Eucerin Cream]) 120 APPLIC/120 GM CR 1 APPLIC TOPICAL BID skin Days 90 EA Continued Medications: Aspirin (Aspirin) 325 Mg Tab 325 MG PO DAILY #30 Ref 0 TAB Atorvastatin (Atorvastatin) 20 Mg Tab 20 MG PO HS Cholesterol Management #30 Ref 0 TAB Cholecalciferol (Vitamin D-3) 1,000 Unit Tab 2000 UNITS PO DAILY #30 Ref 0 TAB Cobalamine Combinations (B-12) 100-5,000 Mcg Subl 1000 MCG PO DAILY #1 Ref 0 TAB.SL Docusate Sodium (Stool Softener) 100 Mg Cap BID Esomeprazole DR (Nexium) 40 Mg Capdr 40 MG PO DAILY Ref 0 CAP Hydrochlorothiazide (Hydrochlorothiazide) 12.5 Mg Cap 12.5 MG PO DAILY #30 Ref 0 CAP Letrozole (Letrozole) 2.5 Mg Tab PO DAILY Metoprolol Succinate ER 24 HR (Metoprolol Succinate ER 24 HR) 50 Mg Tab 50 MG PO DAILY #30 Ref 0 TAB Bozena Taveras MD May 08, 2017 11:28
[2017-05-08] MEDS ORDERED: AMOX500T2 PO (11:33)
[2017-05-08] MEDS: ATORVASTATIN 20 MG TAB PO SCH (21:13)
[2017-05-09] VITALS: BP 128/60; PULSE 60; RESP 20; TEMP 98.2; O2SAT 93
[2017-05-09] MEDS: PIPERACIL-TAZO 4.5 GM PREMIX 100 ML IV SCH (03:59)
[2017-05-09] MEDS: SODIUM CHLORIDE 0.9% FLUSH 10 ML FLUSH IV FLUSH PRN (03:59)
[2017-05-09 04:00] VITALS: BP 156/67; PULSE 63; RESP 20; TEMP 97.2; O2SAT 98
[2017-05-09 08:00] VITALS: BP 159/63; PULSE 57; RESP 18; TEMP 97.4; O2SAT 97
--- NOTE | 2017-05-09 08:28 | PD.CONS ---
History of Present Illness Service Infectious Disease Consult Requested By Dr Bozena Taveras Reason for Consult Recurrent cellulitis Primary Care Physician Chuck Cota MD Diagnoses: (1) Cellulitis of right arm (2) Dementia History of Present Illness Patient has a remote h/o breast cancer and so has chronic rt arm lymphedema and so gets recurrent cellulitis- last episode being 3 months ago. This time too pt had acute onset of symptoms with impending sepsis, high WBC and so was admitted. Feels better. Denies any pain. She says she uses her sleeve though not able to say how often. Review of Systems Constitutional: DENIES: Fever, Chills Endocrine: DENIES: Polyuria Eyes: DENIES: Diplopia, Eye pain Ears, nose, mouth, throat: DENIES: Tinnitus, Nasal discharge Respiratory: DENIES: Cough, Hemoptysis, Shortness of breath Cardiovascular: DENIES: Chest pain, Syncope Gastrointestinal: DENIES: Diarrhea, Nausea, Vomiting Musculoskeletal: DENIES: Muscle aches, Back pain Integumentary: COMPLAINS OF: Abnormal pigmentation, DENIES: Pruritus Neurologic: DENIES: Headache, Localized weakness Psychiatric: COMPLAINS OF: Confusion Past Family Social History Allergies: Coded Allergies: Levaquin (Verified Allergy, Severe, REDNESS, 05/06/17) AT IV SITE AND SURROUNDING AREA Demerol (Verified Allergy, Intermediate, MAKES MIND FUZZY, 05/06/17) Vancomycin (Verified Allergy, Unknown, 05/06/17) Past Medical History Past Medical History Dementia, vascular Breast cancer Hypertension Past Surgical History Right mastectomy with lymph node dissection Cataracts Reported Medications Reviewed and the medical record, no recent antibiotics Allergies: Coded Allergies: Levaquin (Verified Allergy, Severe, REDNESS, 05/06/17) AT IV SITE AND SURROUNDING AREA Demerol (Verified Allergy, Intermediate, MAKES MIND FUZZY, 05/06/17) Vancomycin (Verified Allergy, Unknown, 05/06/17) Active Ordered Medications Reviewed in the medical record Family History Hypertension Social History , no tobacco or alcohol dependency Physical Exam Vital Signs Vital Signs Date Time Temp Pulse Resp B/P Pulse Ox O2 Delivery O2 Flow Rate FiO2 05/09/17 04:00 97.2 63 20 156/67 98 05/09/17 00:00 98.2 60 20 128/60 93 05/08/17 20:00 98.0 59 20 153/57 96 05/08/17 16:00 97.2 63 18 122/55 97 05/08/17 12:00 97.0 58 17 158/73 98 05/08/17 08:47 61 Physical Exam GENERAL: This is a chronically ill patient, in no apparent distress. SKIN: Rt arm erythem though seems to be improving HEAD: Atraumatic. Normocephalic. No temporal or scalp tenderness. EYES: Pupils equal round and reactive. Extraocular motions intact. No scleral icterus. No injection or drainage. ENT: Nose without bleeding, purulent drainage or septal hematoma. Throat without erythema, tonsillar hypertrophy or exudate. Uvula midline. Airway patent. NECK: Trachea midline. No JVD or lymphadenopathy. Supple, nontender, no meningeal signs. CARDIOVASCULAR: Regular rate and rhythm without murmurs, gallops, or rubs. RESPIRATORY: Clear to auscultation. Breath sounds equal bilaterally. No wheezes , rales, or rhonchi. GASTROINTESTINAL: Abdomen soft, non-tender, nondistended. No hepato-splenomegaly , or palpable masses. No guarding. MUSCULOSKELETAL: Rt arm lymphedema with some cellulitis. No joint tenderness, effusion, or edema noted. No calf tenderness. Negative Homans sign bilaterally. NEUROLOGICAL: Awake and alert.Some confusion and memory issues Cranial nerves II through XII intact. Motor and sensory grossly within normal limits. Five out of 5 muscle strength in all muscle groups. Normal speech. Laboratory Date/Time Procedure Status Source Growth 05/06/17 21:30 Aerobic Blood Culture - Preliminary Resulted Blood Peripheral NO GROWTH IN 2 DAYS 05/06/17 21:30 Anaerobic Blood Culture - Preliminary Resulted Blood Peripheral NO GROWTH IN 2 DAYS Result Diagram: 05/07/17 0830 05/07/17 0830 Assessment and Plan Problem List: (1) Cellulitis of right arm Status: Acute Plan: Blood cultures remain negative Re check CBC Stop Zosyn Cefazolin 1 g IV q8hrs Can be changed to PO antibiotics soon. Patient has chronic rt arm lymphedema which predisposes her to the cellulitis- she is unable to tell me if she uses the sleeve often- but she may benefit with a rt arm lymphedema pump to keep the swelling down and to prevemt the cellulitis in the future. (2) Dementia Status: Chronic Huong Flores MD May 09, 2017 08:28
[2017-05-09] MEDS: ASPIRIN 325 MG TAB PO SCH (08:45)
[2017-05-09] MEDS: HYDROCHLOROTHIAZIDE 12.5 MG CAP PO SCH (08:45)
[2017-05-09] MEDS: METOPROLOL SUCCINATE 50 MG EXTENDED RELEASE TAB PO SCH (08:45)
[2017-05-09] MEDS: PANTOPRAZOLE SOD 40 MG DELAYED RELEASE TAB PO SCH (08:45)
[2017-05-09] MEDS: DOCUSATE SODIUM 50 MG/SENNA 8.6 MG TAB PO SCH ×2 (08:46→21:11)
[2017-05-09] MEDS: SODIUM CHLORIDE 0.9% FLUSH 10 ML FLUSH IV FLUSH SCH ×2 (08:47→21:11)
[2017-05-09] MEDS: CLOBETASOL 0.05% TOPICAL SCH ×2 (09:00→21:13)
[2017-05-09] MEDS: EUCERIN CREAM 120 GM JAR TOPICAL SCH ×2 (09:01→21:12)
[2017-05-09 12:00] VITALS: BP 141/55; PULSE 59; RESP 18; TEMP 97.2; O2SAT 97
[2017-05-09] MEDS ORDERED: WALKER WHEELS/F1 MIS (12:04)
--- NOTE | 2017-05-09 12:07 | HHI.PR ---
Subjective Remarks 05/08 Discharge held due to worsening erythema per her . He did request infectious disease consultation which has been done. Patient seen today in follow-up for chronic lymphedema and recurrent right arm cellulitis. Antibiotic changed to cefazolin per ID. No new complaints overnight other than fatigue this morning. at the bedside and plan of care discussed with him. Objective Vitals Vital Signs Date Time Temp Pulse Resp B/P Pulse Ox O2 Delivery O2 Flow Rate FiO2 05/09/17 08:00 97.4 57 18 159/63 97 05/09/17 04:00 97.2 63 20 156/67 98 05/09/17 00:00 98.2 60 20 128/60 93 05/08/17 20:00 98.0 59 20 153/57 96 05/08/17 16:00 97.2 63 18 122/55 97 I/O 05/08/17 05/08/17 05/08/17 05/09/17 05/09/17 05/09/17 07:00 15:00 23:00 07:00 15:00 23:00 Intake Total 60 ml 1220 ml 60 ml 310 ml 100 ml Balance 60 ml 1220 ml 60 ml 310 ml 100 ml Intake Oral 60 ml 1220 ml 60 ml 60 ml IV Total 250 ml 100 ml # Voids 2 5 2 2 # Bowel Movements 0 4 0 0 Result Diagram: 05/07/1782905/07/17829 Objective Remarks GENERAL: This is a well-nourished, well-developed patient, in no apparent distress. CARDIOVASCULAR: Regular rate and rhythm without murmurs, gallops, or rubs. RESPIRATORY: Clear to auscultation. Breath sounds equal bilaterally. No wheezes , rales, or rhonchi. GASTROINTESTINAL: Abdomen soft, non-tender, nondistended. Normal active bowel sounds MUSCULOSKELETAL: Even less erythema and edema in right arm, other 3 Extremities without clubbing, cyanosis, or edema. NEURO: Oriented to person. Poor communication due to dementia Moves all ext x4 Procedures none A/P Problem List: (1) Cellulitis of right arm ICD Code: L03.113 Status: Acute Plan: continue cefazolin every 8 IV if improved change to PO as per ID Consult appreciated this is recurrent patient may benefit from a lymphedema pump (2) Dementia ICD Code: F03.90 Status: Chronic Plan: stable, spouse POA no disturbance or psychotic symptoms (3) HTN (hypertension) ICD Code: I10 Status: Acute Plan: controlled Discharge Planning On oral antibiotics when cleared by ID May need home health care for lymphedema therapy Bozena Taveras MD May 09, 2017 12:07
[2017-05-09 16:00] VITALS: BP 139/55; PULSE 55; RESP 16; TEMP 97.4; O2SAT 95
[2017-05-09 20:00] VITALS: BP 150/61; PULSE 53; RESP 16; TEMP 96.9; O2SAT 95
[2017-05-09] MEDS: ATORVASTATIN 20 MG TAB PO SCH (21:11)
[2017-05-10] VITALS: BP 159/67; PULSE 59; RESP 16; TEMP 97.9; O2SAT 98
[2017-05-10] MEDS: SODIUM CHLORIDE 0.9% FLUSH 10 ML FLUSH IV FLUSH PRN (00:47)
[2017-05-10 06:38] LABS: AUTOMATED NEUTROPHIL # 4.9 TH/MM3 (1.8-7.7); BASOPHIL % 0.5 % (0.0-2.0); EOSINOPHIL # 0.6 TH/MM3 (0-0.4); EOSINOPHIL % 7.2 % (0.0-4.0); HEMATOCRIT 36.4 % (35.0-46.0); HEMO FLAGS DIFF FINAL; LYMPH % 19.3 % (9.0-44.0); LYMPHOCYTE # 1.5 TH/MM3 (1.0-4.8); MEAN CELL VOLUME 88.4 FL (80.0-100.0); MEAN CORPUSCULAR HEMOGLOBIN 30.2 PG (27.0-34.0); MEAN CORPUSCULAR HGB CONC 34.2 % (32.0-36.0); MONO % 10.5 % (0.0-8.0); NEUT % 62.5 % (16.0-70.0); PLATELET COUNT 312 TH/MM3 (150-450); RED BLOOD COUNT 4.11 MIL/MM3 (4.00-5.30); RED CELL DISTRIBUTION WIDTH 12.7 % (11.6-17.2); WHITE BLOOD COUNT 7.8 TH/MM3 (4.0-11.0)
[2017-05-10 08:00] VITALS: BP 155/71; PULSE 64; RESP 18; TEMP 98; O2SAT 98
[2017-05-10] MEDS: ASPIRIN 325 MG TAB PO SCH (08:51)
[2017-05-10] MEDS: DOCUSATE SODIUM 50 MG/SENNA 8.6 MG TAB PO SCH (08:51)
[2017-05-10] MEDS: HYDROCHLOROTHIAZIDE 12.5 MG CAP PO SCH (08:51)
[2017-05-10] MEDS: METOPROLOL SUCCINATE 50 MG EXTENDED RELEASE TAB PO SCH (08:51)
[2017-05-10] MEDS: PANTOPRAZOLE SOD 40 MG DELAYED RELEASE TAB PO SCH (08:51)
[2017-05-10] MEDS: SODIUM CHLORIDE 0.9% FLUSH 10 ML FLUSH IV FLUSH SCH (08:58)
[2017-05-10] MEDS: EUCERIN CREAM 120 GM JAR TOPICAL SCH (09:00)
[2017-05-10] MEDS: CLOBETASOL 0.05% TOPICAL SCH (09:00)
[2017-05-10 12:00] VITALS: BP 152/64; PULSE 52; RESP 18; TEMP 98.1; O2SAT 97
[2017-05-10] MEDS ORDERED: CEPH-460 PO (12:01)
--- NOTE | 2017-05-10 14:17 | HHI.DS ---
Discharge Summary Admission Date May 08, 2017 at 14:24 Discharge Date: May 10, 2017 Admitting Diagnosis right upper extremity cellulitis with chronic lymphedema (1) Cellulitis of right arm ICD Code: L03.113 (2) Dementia ICD Code: F03.90 (3) HTN (hypertension) ICD Code: I10 Procedures none Brief History - From Admission History is obtained from spouse due to patient's vascular dementia This patient is 72-year-old female with recurrent right upper extremity cellulitis. Last episode was about 3 months ago for which she received IV antibiotics and was sent home on oral antibiotics. She has a history of breast cancer with right axillary lymph node resection. She is home with her who says that her symptoms began in the last 24 hours and there were 7 with acute onset of confusion and lethargy and redness in her arm. This is similar to previous episodes which progressed rapidly to sepsis and due to that the patient did come urgently to the hospital. She is supposedly where her arm sleeve and has done that periodically with however is not consistent. Both of her hands have significant abrasions and there is some skin that is chapped with open areas. I did speak with the patient's spouse regarding skin care to prevent injury of bacteria into her soft tissues to prevent future episodes of cellulitis to the best of my ability. He expressed understanding. Patient's erythema and edema has gotten better since starting of Zosyn in the emergency room. Patient is admitted observed in the hospital for further antibiotic therapy CBC/BMP: 05/10/17 0543 05/07/17 0830 Significant Findings Laboratory Tests Test 05/10/17 05:43 Monocytes (%) (Auto) 10.5 % (0.0-8.0) Eosinophils (%) (Auto) 7.2 % (0.0-4.0) Eosinophils # (Auto) 0.6 TH/MM3 (0-0.4) PE at Discharge GENERAL: Patient sitting up in bed. Appears comfortable. She is oriented to person, place and year. SKIN: Warm and dry. HEAD: Normocephalic. EYES: No scleral icterus. No injection or drainage. NECK: Supple, trachea midline. No JVD. CARDIOVASCULAR: Regular rate and rhythm without murmurs, gallops, or rubs. RESPIRATORY: Breath sounds equal bilaterally. No accessory muscle use. GASTROINTESTINAL: Abdomen soft, non-tender, nondistended. MUSCULOSKELETAL: No cyanosis. Patient does have edema in the right arm. Very very faint erythema. No broken skin. BACK: Nontender without obvious deformity. No CVA tenderness. Pt update on day of discharge Patient says she is feeling well. Denies any pain. Denies any chest pain or shortness of breath. I Discussed with infectious disease specialist. Hospital Course Infectious disease was consulted for cellulitis in the right arm. This improved with IV antibiotics. Patient was cleared by infectious disease, discharged home with course of Keflex. She'll need to follow-up with infectious disease as outpatient. Strongly recommend obtaining an using sleeve for right arm for treatment of lymphedema. For problem-based summary from most recent progress note, please see below. ====05/10/17===== Discussed with infectious disease. Patient cleared for discharge with Keflex. We'll need edema control as outpatient. // Cellulitis of right arm -Initially managed with cefazolin IV. Discussed with infectious disease. Blood cultures negative to date. Will discharge home on Keflex. //Dementia -Chronic. Stable, spouse POA no disturbance or psychotic symptoms // HTN (hypertension) -Blood pressure acceptable. Pt Condition on Discharge: Good Discharge Disposition: Discharge Home Discharge Time: > 30 minutes Discharge Instructions DIET: Follow Instructions for: As Tolerated, No Restrictions Activities you can perform: Regular-No Restrictions Other Activity Instructions: wear sleeve keep hands moisturized Follow up Referrals: Infectious Disease - 1 Month with bubba PCP Follow-up - 1 Week with Chuck Cota MD Need to obtain sleeve for right arm for treatment of lymphedema New Medications: Cephalexin (Keflex) 500 Mg Capsule 500 MG PO Q8H Infection Days 14 Ref 0 CAP Walker with Front Wheels (Walker with Front Wheels) 1 Mis Mis 1 EA .ROUTE DIRECTED #1 Ref 0 EA ([Eucerin Cream]) 120 APPLIC/120 GM CR 1 APPLIC TOPICAL BID skin Days 90 EA Continued Medications: Aspirin (Aspirin) 325 Mg Tab 325 MG PO DAILY #30 Ref 0 TAB Atorvastatin (Atorvastatin) 20 Mg Tab 20 MG PO HS Cholesterol Management #30 Ref 0 TAB Cholecalciferol (Vitamin D-3) 1,000 Unit Tab 2000 UNITS PO DAILY #30 Ref 0 TAB Cobalamine Combinations (B-12) 100-5,000 Mcg Subl 1000 MCG PO DAILY #1 Ref 0 TAB.SL Docusate Sodium (Stool Softener) 100 Mg Cap BID Esomeprazole DR (Nexium) 40 Mg Capdr 40 MG PO DAILY Ref 0 CAP Hydrochlorothiazide (Hydrochlorothiazide) 12.5 Mg Cap 12.5 MG PO DAILY #30 Ref 0 CAP Letrozole (Letrozole) 2.5 Mg Tab PO DAILY Metoprolol Succinate ER 24 HR (Metoprolol Succinate ER 24 HR) 50 Mg Tab 50 MG PO DAILY #30 Ref 0 TAB Bryant Dotson MD May 10, 2017 14:17
== END 2017-05-10 16:10 | disposition home or self-care (01) | DRG 603 ==
LOC: PHED 19:25 → PHEDA 22:13 → PHEDH 05-07 02:41 → PH3A 05-07 09:50 → OBSVTOIN 05-08 14:24
PROVIDERS: ADMIT Internal Medicine; ATTEND Internal Medicine
DX: L03.113 Cellulitis of right upper limb (principal); F01.50 Vascular dementia, unspecified severity, without behavioral disturbance, psychotic disturbance, mood disturbance, and anxiety; I10 Essential (primary) hypertension; I89.0 Lymphedema, not elsewhere classified; M19.90 Unspecified osteoarthritis, unspecified site; Z85.3 Personal history of malignant neoplasm of breast; Z86.73 Personal history of transient ischemic attack (TIA), and cerebral infarction without residual deficits; K21.9 Gastro-esophageal reflux disease without esophagitis
CPT/HCPCS: 80053; 83605; 85025; 87040; 96365; G0378; J0690; J2543; J7030

== ENCOUNTER 2017-05-28 01:06 | Inpatient (IN) | payer OTHER, MEDICARE ==
[2017-05-28] VITALS (11 sets, daily range): BP systolic 111–148; BP diastolic 50–64; PULSE 58–68; RESP 16–20; TEMP 95.9–100.7; O2SAT 96–99
[~2017-05-28] VITALS: Ht 162.6 cm; Wt 60.2 kg
[~2017-05-28 01:06] MED LIST changes: -AUGM500T7 PO; +CEPH-460 PO; +Eucerin Cream TOPICAL; +WALKER WHEELS/F1 MIS
[2017-05-28] MEDS ORDERED: ACETAMINOPHEN 325 MG TAB PO ONE (01:30)
[2017-05-28] MEDS ORDERED: PIPERACIL-TAZO 4.5 GM PREMIX 100 ML IV ONE (01:30)
[2017-05-28] MEDS ORDERED: SODIUM CHLOR 0.9% 1000 ML INJ 1,000 ML IV ONE (01:30)
[2017-05-28 02:09] LABS: AUTOMATED NEUTROPHIL # 17.2 TH/MM3 (1.8-7.7); BASOPHIL # 0.7 TH/MM3 (0-0.2); BASOPHIL % 3.5 % (0.0-2.0); EOSINOPHIL % 0.2 % (0.0-4.0); HEMATOCRIT 38.6 % (35.0-46.0); LYMPH % 2.8 % (9.0-44.0); LYMPHOCYTE # 0.5 TH/MM3 (1.0-4.8); MEAN CELL VOLUME 89.3 FL (80.0-100.0); MEAN CORPUSCULAR HEMOGLOBIN 30.3 PG (27.0-34.0); MEAN CORPUSCULAR HGB CONC 33.9 % (32.0-36.0); MONO % 4.8 % (0.0-8.0); NEUT % 88.7 % (16.0-70.0); PLATELET COUNT 376 TH/MM3 (150-450); RED BLOOD COUNT 4.32 MIL/MM3 (4.00-5.30); RED CELL DISTRIBUTION WIDTH 12.9 % (11.6-17.2); WHITE BLOOD COUNT 19.3 TH/MM3 (4.0-11.0)
[2017-05-28 02:21] LABS: POTASSIUM 3.2 MEQ/L (3.5-5.1)
[2017-05-28 02:24] LABS: BICARBONATE 24.6 MEQ/L (21.0-32.0)
[2017-05-28 02:27] LABS: HEMO FLAGS AUTO DIFF
[2017-05-28 02:49] LABS: BASOPHILS 2 % (0-2); NEUTROPHIL # MANUAL DIFF 18.1 TH/MM3 (1.8-7.7); POLYS (SEG NEUTROPHILS) 94 % (16-70); WBC DIFF SAMPLE 100
[2017-05-28 02:50] LABS: PLATELET ESTIMATE SMEAR NORMAL (NORMAL); PLATELET MORPHOLOGY CLUMPED (NORMAL); SCAN/DIFF FINAL DIFF MANUAL
--- NOTE | 2017-05-28 03:00 | PD ---
HPI Chief Complaint: General Weakness Time Seen by Provider: 01:29 Travel History International Travel<30 days: No Contact w/Intl Traveler<30days: No Traveled to known affect area: No History of Present Illness HPI 72-year-old female presents to the emergency department by private transportation the care of her spouse for evaluation of redness and swelling of the right upper extremity. provides history as patient has had previous stroke and his poor historian. Symptoms of right upper extremity redness warmth and swelling noted since patient went to bed last evening. Patient recently hospitalized for cellulitis of the right upper extremity. Patient has chronic lymphedema of the right upper extremity secondary to lymph node excision and right mastectomy. Patient reportedly with subjective fever and chills at home. Patient recently completed a course of oral antibiotic after hospitalization. noted the patient seemed to be more lethargic and looked at her arm and identified that she is having recurrent cellulitis. No other concerns or complaints per other than this episode of redness and swelling seem to be more rapid and abrupt and previous infections.. PFSH Past Medical History Narrative Medical Arthritis CVA breast cancer mastectomy radiation and chemotherapy lymphedema and cellulitis hypertension dementia; mastectomy; nursing notes reviewed Arthritis: Yes Autoimmune Disease: No Anxiety: No Depression: No Heart Rhythm Problems: No Cancer: Yes (R breast) Cardiovascular Problems: Yes High Cholesterol: No Chemotherapy: Yes (28 YRS AGO FOR BREAST CA) Congestive Heart Failure: No Cerebrovascular Accident: Yes Diabetes: No Diminished Hearing: No Endocrine: No Gastrointestinal Disorders: Yes GERD: Yes (GERD) Genitourinary: No Headaches: No Hiatal Hernia: No Hypertension: Yes Immune Disorder: No Implanted Vascular Access Dvce: No Musculoskeletal: Yes Neurologic: Yes (dementia) Psychiatric: Yes (Dementia) Reproductive: No Respiratory: No Migraines: No Radiation Therapy: Yes Seizures: No Thyroid Disease: No Ulcer: No Tetanus Vaccination: < 5 Years Influenza Vaccination: Yes ?: Not Menopausal: Yes Past Surgical History Abdominal Surgery: No AICD: No Arteriovenous Shunt: No Body Medical Devices: cataract implants Cardiac Surgery: No Ear Surgery: No Endocrine Surgery: No Eye Surgery: Yes (cataracts) Genitourinary Surgery: No Gynecologic Surgery: No Insulin Pump: No Joint Replacement: Yes Neurologic Surgery: No Oral Surgery: No Pacemaker: No Thoracic Surgery: No Other Surgery: Yes (rt mastectomy ) Social History Alcohol Use: Yes (Occasionally) Tobacco Use: No Substance Use: No Allergies-Medications (Allergen,Severity, Reaction): Coded Allergies: Levaquin (Verified Allergy, Severe, REDNESS, 05/28/17) AT IV SITE AND SURROUNDING AREA Demerol (Verified Allergy, Intermediate, MAKES MIND FUZZY, 05/28/17) Vancomycin (Verified Allergy, Unknown, 05/28/17) Reported Meds & Prescriptions Reported Meds & Active Scripts Active Walker with Front Wheels (Device) 1 Mis Mis 1 Ea .ROUTE DIRECTED [Eucerin Cream] 120 APPLIC/120 GM Cr 1 Applic TOPICAL BID 90 Days Reported Stool Softener (Docusate Sodium) 100 Mg Cap BID B-12 (Cobalamine Combinations) 100-5,000 Mcg Subl 1,000 Mcg PO DAILY Aspirin 325 Mg Tab 325 Mg PO DAILY Atorvastatin (Atorvastatin Calcium) 20 Mg Tab 20 Mg PO HS Metoprolol Succinate ER 24 HR (Metoprolol Succinate) 50 Mg Tab 50 Mg PO DAILY Hydrochlorothiazide 12.5 Mg Cap 12.5 Mg PO DAILY Nexium (Esomeprazole DR) 40 Mg Capdr 40 Mg PO DAILY Letrozole 2.5 Mg Tab PO DAILY Review of Systems Except as stated in HPI: all other systems reviewed are Neg General / Constitutional: Positive: Fever, No: Chills HENT: No: Headaches Cardiovascular: No: Chest Pain or Discomfort Respiratory: No: Shortness of Breath Gastrointestinal: No: Vomiting Genitourinary: No: Decreased Urinary Output Musculoskeletal: Positive: Edema (RUE) Skin: Positive Rash (RUE) Neurologic: Positive: Weakness Hematologic/Lymphatic: No: Lymph Node Enlargement Physical Exam Narrative GENERAL: Well-developed well-nourished female in no acute distress SKIN: Warm and dry. HEAD: Normocephalic. EYES: No scleral icterus. No injection or drainage. NECK: Supple, trachea midline. No JVD or lymphadenopathy. CARDIOVASCULAR: Regular rate and rhythm without murmurs, gallops, or rubs. RESPIRATORY: Breath sounds equal bilaterally. No accessory muscle use. GASTROINTESTINAL: Abdomen soft, non-tender, nondistended. MUSCULOSKELETAL: No cyanosis, or edema. Erythema and edema of the right upper extremity with increased warmth BACK: Nontender without obvious deformity. No CVA tenderness. Data Data Last Documented VS Vital Signs Date Time Temp Pulse Resp B/P Pulse Ox O2 Delivery O2 Flow Rate FiO2 05/28/17 02:51 66 18 139/64 97 Room Air 05/28/17 01:32 99.5 Orders Basic Metabolic Panel (Bmp) (05/28/17 01:29) Complete Blood Count With Diff (05/28/17 01:29) Blood Culture (05/28/17 01:29) Iv Access Insert/Monitor (05/28/17 01:29) Piperacil-Tazo 4.5 Gm Premix (Zosyn 4.5 (05/28/17 01:30) Sodium Chlor 0.9% 1000 Ml Inj (Ns 1000 M (05/28/17 01:30) Acetaminophen (Tylenol) (05/28/17 01:30) Admit Order (Ed Use Only) (05/28/17 ) ^ Saline Lock (05/28/17 03:05) Resp Oxygen Cornelio C Titrat 1-4 L (05/28/17 ) Notify Dr: Other (05/28/17 03:05) Sodium Chloride 0.9% Flush (Ns Flush) (05/28/17 09:00) Sodium Chloride 0.9% Flush (Ns Flush) (05/28/17 03:15) Labs Laboratory Tests Test 05/28/17 01:50 White Blood Count 19.3 TH/MM3 Red Blood Count 4.32 MIL/MM3 Hemoglobin 13.1 GM/DL Hematocrit 38.6 % Mean Corpuscular Volume 89.3 FL Mean Corpuscular Hemoglobin 30.3 PG Mean Corpuscular Hemoglobin 33.9 % Concent Red Cell Distribution Width 12.9 % Platelet Count 376 TH/MM3 Mean Platelet Volume 8.2 FL Neutrophils (%) (Auto) 88.7 % Lymphocytes (%) (Auto) 2.8 % Monocytes (%) (Auto) 4.8 % Eosinophils (%) (Auto) 0.2 % Basophils (%) (Auto) 3.5 % Neutrophils # (Auto) 17.2 TH/MM3 Lymphocytes # (Auto) 0.5 TH/MM3 Monocytes # (Auto) 0.9 TH/MM3 Eosinophils # (Auto) 0.0 TH/MM3 Basophils # (Auto) 0.7 TH/MM3 CBC Comment AUTO DIFF Differential Total Cells 100 Counted Neutrophils % (Manual) 94 % Lymphocytes % 1 % Monocytes % 3 % Basophils % 2 % Neutrophils # (Manual) 18.1 TH/MM3 Differential Comment FINAL DIFF MANUAL Platelet Estimate NORMAL Platelet Morphology Comment CLUMPED Red Cell Morphology Comment NORMAL Sodium Level 133 MEQ/L Potassium Level 3.2 MEQ/L Chloride Level 99 MEQ/L Carbon Dioxide Level 24.6 MEQ/L Anion Gap 9 MEQ/L Blood Urea Nitrogen 21 MG/DL Creatinine 0.79 MG/DL Estimat Glomerular Filtration 71 ML/MIN Rate Random Glucose 156 MG/DL Calcium Level 9.1 MG/DL MDM Medical Decision Making Medical Screen Exam Complete: Yes Emergency Medical Condition: Yes Medical Record Reviewed: Yes Interpretation(s) Vital Signs Date Time Temp Pulse Resp B/P Pulse Ox O2 Delivery O2 Flow Rate FiO2 05/28/17 02:51 66 18 139/64 97 Room Air 05/28/17 01:35 65 18 96 Room Air 05/28/17 01:32 99.5 65 18 139/60 96 05/28/17 01:10 100.7 64 20 126/60 97 CBC & BMP Diagram 05/28/17 01:50 Differential Diagnosis Cellulitis, sepsis, lymphedema Narrative Course IV access obtained specimens collected and sent for resulting; patient administered Zosyn 4.5 g CBC is automated differential elevated with left shift; lactic acid 1.2 Chemistries hypokalemia Patient's case discussed with on-call [facility] for admission Sepsis Criteria SIRS Criteria (2 or more): WBC > 56239, < 4000 or > 10% bands Sepsis Criteria (SIRS+source): Infect source susp/known Physician Communication Physician Communication [facility] - Dr Chowdhury --admit Diagnosis Primary Impression: Cellulitis of right arm Admitting Information Admitting Physician Requests: Admit Ashtyn Pritchard MD May 28, 2017 03:00
[2017-05-28] MEDS ORDERED: LACTULOSE SYRUP 20 GM/30 ML CUP PO PRN (03:15)
[2017-05-28] MEDS ORDERED: ONDANSETRON HCL 4 MG/2 ML VIAL IVP PRN (03:15)
[2017-05-28] MEDS ORDERED: POTASSIUM CHLORIDE 20 MEQ CONTROLLED RELEASE TAB PO ONE (03:15)
[2017-05-28] MEDS ORDERED: MORPHINE SULFATE 4 MG/ML INJ IV PRN (03:15)
[2017-05-28] MEDS ORDERED: SODIUM CHLORIDE 0.9% FLUSH 10 ML FLUSH IVF PRN (03:15)
[2017-05-28] MEDS ORDERED: ACETAMINOPHEN/HYDROcodone 325 MG/5 MG TAB PO PRN (03:15)
[2017-05-28] MEDS ORDERED: SODIUM CHLORIDE 0.9% FLUSH 10 ML FLUSH IV FLUSH PRN (03:15)
[2017-05-28] MEDS ORDERED: BISACODYL 10 MG SUPP RECTAL PRN (03:15)
[2017-05-28] MEDS ORDERED: ACETAMINOPHEN 325 MG TAB PO PRN (03:15)
[2017-05-28] MEDS ORDERED: SENNOSIDES 8.6 MG TAB PO PRN (03:15)
[2017-05-28] MEDS ORDERED: MAGNESIUM HYDROXIDE SUSP 30 ML CUP PO PRN (03:15)
[2017-05-28] MEDS ORDERED: CLINDAMYCIN INJ 900 MG in SODIUM CHLORIDE 0.9% INJ 100 ML IV SCH (04:00)
[2017-05-28] MEDS: SODIUM CHLOR 0.9% 1000 ML INJ 1,000 ML IV SCH ×2 (04:10→11:36)
[2017-05-28] MEDS: SODIUM CHLORIDE 0.9% FLUSH 10 ML FLUSH IV FLUSH SCH ×2 (09:00→21:54)
[2017-05-28] MEDS ORDERED: SODIUM CHLORIDE 0.9% FLUSH 10 ML FLUSH IV FLUSH SCH (09:00)
[2017-05-28] MEDS: PIPERACIL-TAZO 3.375 GM PREMIX 50 ML IV SCH ×3 (10:39→21:55)
[2017-05-28] MEDS: PANTOPRAZOLE SOD 40 MG DELAYED RELEASE TAB PO SCH (10:40)
[2017-05-28] MEDS: METOPROLOL SUCCINATE 50 MG EXTENDED RELEASE TAB PO SCH (10:40)
[2017-05-28] MEDS: ASPIRIN 325 MG TAB PO SCH (10:40)
[2017-05-28] MEDS: DOCUSATE SODIUM 50 MG/SENNA 8.6 MG TAB PO SCH ×2 (10:41→21:54)
--- NOTE | 2017-05-28 11:30 | HHI.HP ---
[facility] Primary Care Physician Chuck Cota MD Admission Diagnosis R upper extremity cellulitis Diagnoses: (1) Sepsis Diagnosis: Principal (2) Cellulitis of right arm Diagnosis: Principal Chief Complaint: Right arm redness Travel History International Travel<30 Days: No Contact w/Intl Traveler <30 Da: No Traveled to Known Affected Are: No Sepsis Criteria SIRS Criteria (2 or more): Temp > 100.9 or < 96.8, WBC > 33472, < 4000 or > 10 % bands Sepsis Criteria (SIRS+source): Infect source susp/known Criteria Outcome: Meets sepsis criteria History of Present Illness Written by Tate Duque, acting as scribe for Dr. Taveras on 05/28/17 at 11: 14. Was 72-year-old female with known history of dementia, breast cancer status post mastectomy, chronic lymphedema in the right upper extremity, hypertension, coronary artery disease who presented to hospital because of recurrent erythema of the right upper extremity. The patient was just recently admitted the hospital and treated for same cellulitis from May 06, 2017July 2016. During the stay the patient was treated with antibiotics with improvement, evaluated by infectious disease. Patient improved and was discharged home on Keflex. Patient was instructed to follow-up with infectious disease as well as counseled on lymphedema clinic. The patient was discharged on her last visit and it was indicated by her that she did not return to her normal mentation until 7 days after being home. They did follow-up with her primary medical doctor Dr. Cota, however did not follow-up with infectious disease doctor or get evaluated by the lymphedema clinic. She was doing well up until 9:30 last night when her noticed that she was getting more listless. Her helped her to bed and when he took off her compression sleeve he noticed a 1 inch area of erythema at the bicep region. Approximately 1 hour later she came more listless, more confused and then he noticed that her whole arm became red. Because of that he came to the hospital for evaluation. In the ER the patient was found to have febrile illness, leukocytosis and cellulitis representing sepsis. Patient was requested admission. They do not indicate that she experienced any nausea, vomiting, fever, chills, abdominal pain, cough, congestion at home. Did have one episode of nausea in the emergency department. Review of Systems Integumentary: COMPLAINS OF: Abnormal pigmentation Hematologic/lymphatic: COMPLAINS OF: Lymphadenopathy Except as stated in HPI: all other systems reviewed are Neg Past Family Social History Past Medical History Vascular dementia Right breast cancer Hypertension GERD Arthritis history of multiple TIAs with speech impediment Coronary artery disease Past Surgical History Right knee and right hip replacements Cataract surgery Mastectomy Reported Medications Reported Meds & Active Scripts Active Walker with Front Wheels (Device) 1 Mis Mis 1 Ea .ROUTE DIRECTED [Eucerin Cream] 120 APPLIC/120 GM Cr 1 Applic TOPICAL BID 90 Days Reported Stool Softener (Docusate Sodium) 100 Mg Cap BID B-12 (Cobalamine Combinations) 100-5,000 Mcg Subl 1,000 Mcg PO DAILY Aspirin 325 Mg Tab 325 Mg PO DAILY Atorvastatin (Atorvastatin Calcium) 20 Mg Tab 20 Mg PO HS Metoprolol Succinate ER 24 HR (Metoprolol Succinate) 50 Mg Tab 50 Mg PO DAILY Hydrochlorothiazide 12.5 Mg Cap 12.5 Mg PO DAILY Nexium (Esomeprazole DR) 40 Mg Capdr 40 Mg PO DAILY Letrozole 2.5 Mg Tab PO DAILY Allergies: Coded Allergies: Levaquin (Verified Allergy, Severe, REDNESS, 05/28/17) AT IV SITE AND SURROUNDING AREA Demerol (Verified Allergy, Intermediate, MAKES MIND FUZZY, 05/28/17) Vancomycin (Verified Allergy, Unknown, 05/28/17) Family History Reviewed and unremarkable Social History Patient quit smoking 20 years ago prior to that she smoked 2 cigarettes daily and she was 21. He drinks alcohol occasionally. No indication of illicit drugs Physical Exam Vital Signs Vital Signs Date Time Temp Pulse Resp B/P Pulse Ox O2 Delivery O2 Flow Rate FiO2 05/28/17 04:39 96.7 63 18 118/55 96 05/28/17 04:37 68 18 97 05/28/17 03:55 68 18 111/50 97 Room Air 05/28/17 03:42 97 21 05/28/17 02:51 66 18 139/64 97 Room Air 05/28/17 01:35 65 18 96 Room Air 05/28/17 01:32 99.5 65 18 139/60 96 05/28/17 01:10 100.7 64 20 126/60 97 Physical Exam GENERAL: Well-developed, well-nourished, in no acute distress. alert and orientated HEENT: Head is normocephalic without any lesions or masses noted. Facial features are symmetric. Eyes: Pupils equal round reactive to light. Extraocular muscles are intact. Conjunctivae were clear. Oropharyngeal: Pharynx without any erythema edema. Tongue is midline without deviation. Buccal mucosa is moist without any masses or lesions NECK: Supple without any masses. Trachea midline no deviation. No JVD, no bruits are appreciated CARDIAC: Regular rhythm, regular rate. S1/S2 are heard. 3/6 holosystolic murmur , no gallops or rubs. LUNGS: Clear to auscultation bilaterally. No wheeze, rhonchi or rales. No use of accessory muscles on inspiration or expiration. ABDOMEN: Soft, nontender. Nondistended. Bowel sounds heard in all 4 quadrants. No organomegaly or masses. Negative rebound, negative guarding EXTREMITIES:, pulses are equal bilaterally. No cyanosis or clubbing. Bilateral hands to have dried skin and excoriations noted. NEUROLOGY: Mood and affect appear appropriate. Cranial nerves II through XII grossly intact. Muscle strength 5/5 in upper and lower extremities bilaterally. Deep tendon reflexes are 2+ in upper and lower extremities bilaterally. RIGHT UPPER EXTREMITY: Patient does have significant erythema noted from axillary down to wrist. No obvious lesions noted in that area. Patient does have lymphedema noted in the right upper extremity Laboratory Laboratory Tests Test 05/28/17 01:50 White Blood Count 19.3 Red Blood Count 4.32 Hemoglobin 13.1 Hematocrit 38.6 Mean Corpuscular Volume 89.3 Mean Corpuscular Hemoglobin 30.3 Mean Corpuscular Hemoglobin 33.9 Concent Red Cell Distribution Width 12.9 Platelet Count 376 Mean Platelet Volume 8.2 Neutrophils (%) (Auto) 88.7 Lymphocytes (%) (Auto) 2.8 Monocytes (%) (Auto) 4.8 Eosinophils (%) (Auto) 0.2 Basophils (%) (Auto) 3.5 Neutrophils # (Auto) 17.2 Lymphocytes # (Auto) 0.5 Monocytes # (Auto) 0.9 Eosinophils # (Auto) 0.0 Basophils # (Auto) 0.7 CBC Comment AUTO DIFF Differential Total Cells 100 Counted Neutrophils % (Manual) 94 Lymphocytes % 1 Monocytes % 3 Basophils % 2 Neutrophils # (Manual) 18.1 Differential Comment FINAL DIFF MANUAL Platelet Estimate NORMAL Platelet Morphology Comment CLUMPED Red Cell Morphology Comment NORMAL Sodium Level 133 Potassium Level 3.2 Chloride Level 99 Carbon Dioxide Level 24.6 Anion Gap 9 Blood Urea Nitrogen 21 Creatinine 0.79 Estimat Glomerular Filtration 71 Rate Random Glucose 156 Calcium Level 9.1 Date/Time Procedure Status Source Growth 05/28/17 01:55 Aerobic Blood Culture Received Blood Peripheral Pending 05/28/17 01:55 Anaerobic Blood Culture Received Blood Peripheral Pending Result Diagram: 05/28/1714905/28/17149 Septic Shock Reassessment Heart: Regular rate and rhythm, Murmur Lungs: Clear Skin: [place] Peripheral Pulses: Bounding Right Radial Bounding Left Radial Capillary Refill: Brisk, <2 seconds Assessment and Plan Problem List: (1) Sepsis ICD Code: A41.9 Status: Acute Plan: Patient meets criteria with febrile illness, leukocytosis, cellulitis Continue follow CBC and cultures Empirical antibiotics have been started (2) Cellulitis of right arm ICD Code: L03.113 Status: Acute Plan: Recurrent with increased frequency, will need further workup for any other underlying etiology Patient started on clindamycin, Zosyn Continue monitor for improvement daily Follow cultures Patient counseled extensively on appropriate outpatient follow-up with infectious disease physician as well as outpatient lymphedema therapy (3) Cardiac murmur ICD Code: R01.1 Status: Acute Plan: Patient with recurrent cellulitis and 3/6 holosystolic murmur, concerning because of the recurrent cellulitis. Obtain echocardiogram for evaluation of murmur and rule out endocarditis Assessment and Plan DVT prevention Sequential compression devices Physician Certification 2 Midnight Certification Type: Admission for Inpatient Services Order for Inpatient Services The services are ordered in accordance with Medicare regulations or non- Medicare payer requirements, as applicable. In the case of services not specified as inpatient-only, they are appropriately provided as inpatient services in accordance with the 2-midnight benchmark. Estimated LOS (days): 2 days is the estimated time the patient will need to remain in the hospital, assuming treatment plan goals are met and no additional complications. Post-Hospital Plan: Not yet determined Medical Decision Making Impression and Plan The exam, history, and the medical decision-making described in the above note were completed with the assistance of the mid-level provider. I reviewed and agree with the findings presented. I attest that I had a [id number] encounter with the patient on the same day, and personally performed and documented my assessment and findings in the medical record. discussed with Patient, spouse and MedSurg Tate Sauceda May 28, 2017 11:30 Bozena Taevras MD May 28, 2017 13:33
[2017-05-28] MEDS: ATORVASTATIN 20 MG TAB PO SCH (21:54)
[2017-05-29] VITALS: BP 149/65; PULSE 59; RESP 20; TEMP 97.9; O2SAT 100
[2017-05-29] MEDS: PIPERACIL-TAZO 3.375 GM PREMIX 50 ML IV SCH ×4 (02:32→22:06)
[2017-05-29 07:59] VITALS: BP 146/71; PULSE 56; RESP 18; TEMP 97; O2SAT 100
[2017-05-29] MEDS: ASPIRIN 325 MG TAB PO SCH (08:08)
[2017-05-29] MEDS: SODIUM CHLORIDE 0.9% FLUSH 10 ML FLUSH IV FLUSH SCH ×2 (08:08→22:06)
[2017-05-29] MEDS: DOCUSATE SODIUM 50 MG/SENNA 8.6 MG TAB PO SCH ×2 (08:08→22:06)
[2017-05-29] MEDS: PANTOPRAZOLE SOD 40 MG DELAYED RELEASE TAB PO SCH (08:08)
[2017-05-29] MEDS: METOPROLOL SUCCINATE 50 MG EXTENDED RELEASE TAB PO SCH (08:08)
[2017-05-29 10:18] LABS: AUTOMATED NEUTROPHIL # 7.1 TH/MM3 (1.8-7.7); BASOPHIL # 0.1 TH/MM3 (0-0.2); BASOPHIL % 0.6 % (0.0-2.0); EOSINOPHIL # 0.2 TH/MM3 (0-0.4); EOSINOPHIL % 2.6 % (0.0-4.0); HEMATOCRIT 36.7 % (35.0-46.0); HEMO FLAGS DIFF FINAL; LYMPH % 12.3 % (9.0-44.0); LYMPHOCYTE # 1.2 TH/MM3 (1.0-4.8); MEAN CELL VOLUME 90.1 FL (80.0-100.0); MEAN CORPUSCULAR HEMOGLOBIN 29.9 PG (27.0-34.0); MEAN CORPUSCULAR HGB CONC 33.1 % (32.0-36.0); MONO % 10.6 % (0.0-8.0); NEUT % 73.9 % (16.0-70.0); PLATELET COUNT 334 TH/MM3 (150-450); RED BLOOD COUNT 4.08 MIL/MM3 (4.00-5.30); RED CELL DISTRIBUTION WIDTH 13.7 % (11.6-17.2); WHITE BLOOD COUNT 9.6 TH/MM3 (4.0-11.0)
[2017-05-29 10:45] LABS: ALKALINE PHOSPHATASE 85 U/L (45-117); ALT (GPT) 62 U/L (10-53); ANION GAP 6 MEQ/L (5-15); AST (GOT) 39 U/L (15-37); BICARBONATE 27.6 MEQ/L (21.0-32.0); BLOOD UREA NITROGEN 12 MG/DL (7-18); CHLORIDE 103 MEQ/L (98-107); GLOMERULAR FILTRATION RATE 76 ML/MIN (>89); POTASSIUM 4.2 MEQ/L (3.5-5.1); SODIUM (NA) 137 MEQ/L (136-145); TOTAL BILIRUBIN ADULT 0.4 MG/DL (0.2-1.0)
--- NOTE | 2017-05-29 11:05 | HHI.PR ---
Subjective Remarks Patient seen in follow-up for right arm cellulitis which is improved today. Patient tolerating IV antibiotics without difficulty Objective Vitals Vital Signs Date Time Temp Pulse Resp B/P Pulse Ox O2 Delivery O2 Flow Rate FiO2 05/29/17 07:59 97.0 56 18 146/71 100 05/29/17 00:00 97.9 59 20 149/65 100 05/28/17 20:00 97.9 65 16 148/51 99 05/28/17 19:35 98 21 05/28/17 16:00 96.0 58 18 140/54 99 I/O 05/28/17 05/28/17 05/28/17 05/29/17 05/29/17 05/29/17 07:00 15:00 23:00 07:00 15:00 23:00 Intake Total 440 ml 125 ml Balance 440 ml 125 ml Intake Oral 240 ml IV Total 200 ml 125 ml # Voids 1 2 # Bowel Movements 0 Result Diagram: 05/29/17 1010 05/29/17 1010 Objective Remarks GENERAL: This is a well-nourished, well-developed patient, in no apparent distress. CARDIOVASCULAR: Regular rate and rhythm with 3/6 holosystolic murmurs, gallops, or rubs. RESPIRATORY: Clear to auscultation. Breath sounds equal bilaterally. No wheezes , rales, or rhonchi. GASTROINTESTINAL: Abdomen soft, non-tender, nondistended. Normal active bowel sounds MUSCULOSKELETAL: Extremities without clubbing, cyanosis, or edema. NEURO: Alert & Oriented x4 to person, place, time, situation. Moves all ext x4 A/P Problem List: (1) Sepsis ICD Code: A41.9 Status: Acute Plan: improved (2) Cellulitis of right arm ICD Code: L03.113 Status: Acute (3) Cardiac murmur ICD Code: R01.1 Status: Acute Plan: Patient with recurrent cellulitis and 3/6 holosystolic murmur, concerning because of the recurrent cellulitis. Obtain echocardiogram for evaluation of murmur and rule out endocarditis Bozena Taveras MD May 29, 2017 11:05
[2017-05-29 12:00] VITALS: BP 146/62; PULSE 55; RESP 18; TEMP 96.1; O2SAT 98
--- NOTE | 2017-05-29 12:48 | ECHRPT ---
Indication: SEPSIS- ENDOCARDITIS CONCLUSIONS Normal left ventricular size. Wall thickness is normal. The left ventricular systolic function is low normal with an estimated ejection fraction in the rang e of 50- 55%. Mitral annular calcification is present. Mild mitral valve regurgitation. Aortic valve sclerosis is present. Baen-kg-fehvrxms aortic valve regurgitation. There is severe tricuspid regurgitation. There is estimated moderate pulmonary hypertension present (51mmHg). The pulmonary valve is not well visualized. BP: / HR: Rhythm: Sinus MEASUREMENTS (Male / Female) Normal Values Technical Quality:Good 2D ECHO LV Diastolic Diameter PLAX 4.4 cm 4.2 - 5.9 / 3.9 - 5.3 cm LV Systolic Diameter PLAX 3.2 cm IVS Diastolic Thickness 1.3 cm 0.6 - 1.0 / 0.6 - 0.9 cm LVPW Diastolic Thickness 0.8 cm 0.6 - 1.0 / 0.6 - 0.9 cm LV Relative Wall Thickness 0.5 RV Internal Dim ED PLAX 2.3 cm M-MODE Aortic Root Diameter MM 3.0 cm AV Cusp Separation MM 2.0 cm DOPPLER AV Peak Velocity 212.0 cm/s AV Peak Gradient 18.0 mmHg AV Mean Gradient 11.0 mmHg AV Velocity Time Integral 56.2 cm LVOT Peak Velocity 113.0 cm/s LVOT Peak Gradient 5.1 mmHg LVOT Velocity Time Integral 30.3 cm Mitral E Point Velocity 62.2 cm/s Mitral A Point Velocity 82.4 cm/s Mitral E to A Ratio 0.8 LV E' Lateral Velocity 5.9 cm/s Mitral E to LV E' Lateral Ratio 10.6 LV E' Septal Velocity 5.4 cm/s Mitral E to LV E' Septal Ratio 11.6 TR Peak Velocity 338.0 cm/s TR Peak Gradient 45.7 mmHg FINDINGS LEFT VENTRICLE Normal left ventricular size. Wall thickness is normal. The left ventricular systolic function is low normal with an estimated ejection fraction in the rang e of 50- 55%. RIGHT VENTRICLE Normal right ventricular size and systolic function. LEFT ATRIUM The left atrial size is normal. RIGHT ATRIUM The right atrial size is normal. ATRIAL SEPTUM Normal atrial septal thickness without atrial level shunting by limited color doppler interrogation. AORTA The aortic root and proximal ascending aorta are normal in size on limited imaging. MITRAL VALVE Mitral annular calcification is present. Mild mitral valve regurgitation. AORTIC VALVE Aortic valve sclerosis is present. Aiwq-kx-qapftiyt aortic valve regurgitation. TRICUSPID VALVE There is severe tricuspid regurgitation. There is estimated moderate pulmonary hypertension present (51mmHg). PULMONARY VALVE The pulmonary valve is not well visualized. VESSELS The inferior vena cava is normal in size. PERICARDIUM No pericardial effusion. Enrique Ayala MD, FACC (Electronically Signed) Final Date:29 May 2017 12:48
[2017-05-29 16:00] VITALS: BP 146/60; PULSE 55; RESP 18; TEMP 97.2; O2SAT 100
[2017-05-29 20:00] VITALS: BP 158/68; PULSE 62; RESP 18; TEMP 97; O2SAT 96
[2017-05-29] MEDS: ATORVASTATIN 20 MG TAB PO SCH (22:06)
[2017-05-30 00:34] VITALS: BP 150/56; PULSE 55; RESP 16; TEMP 95.9; O2SAT 99
[2017-05-30] MEDS: PIPERACIL-TAZO 3.375 GM PREMIX 50 ML IV SCH (02:10)
[2017-05-30 08:00] VITALS: BP 196/88; PULSE 64; RESP 18; TEMP 96.4; O2SAT 100
--- NOTE | 2017-05-30 08:10 | MB ---
cc: HANNAH RUSSELL MD DATE OF CONSULTATION 05/30/2017 REASON FOR CONSULTATION Tricuspid regurgitation HISTORY OF PRESENT ILLNESS The patient is a pleasant 72-year-old woman who sees my partner, Dr. Garcia, and who has a history of dementia as well as multiple TIAs, hypertension, gastroesophageal reflux disease. The patient presented with right upper extremity erythema. She underwent echocardiogram which showed severe tricuspid regurgitation, thus I was consulted. The patient is unable to provide any history due to her dementia. She says she currently has no complaints, but cannot tell me why she is on the hospital. She says she has no chest pain, shortness of breath, lightheadedness, or dizziness. PAST MEDICAL HISTORY As above. CURRENT MEDICATIONS 1. Lipitor 20 mg q.h.s. 2. Zosyn 3. Aspirin 325 mg daily 4. Toprol XL 50 mg daily 5. Protonix ALLERGIES DEMEROL, LEVAQUIN AND VANCOMYCIN PHYSICAL EXAMINATION Afebrile, pulse 55, respiratory rate 16, BP 150/56 sating 99% on room air. GENERAL: This is a pleasant woman in no distress. NECK: No JVD. LUNGS: Clear to auscultation bilaterally. CARDIOVASCULAR: Regular rate and rhythm with a 2-3/6 systolic murmur appreciated. ABDOMEN: Benign. EXTREMITIES: No edema. LABORATORY DATA White count 9.6, hematocrit 36.7, platelets 334. Sodium 137, potassium 4.2, bicarb 27.6, BUN 12, creatinine 0.75, glucose 89. Echocardiogram was notable for a normal ejection fraction of 50-55% with severe tricuspid regurgitation with a PA pressure of 51 mmHg, mild to moderate aortic valve regurgitation and aortic valve sclerosis IMPRESSION Tricuspid regurgitation. The patient has no signs of right heart failure such as significant lower extremity edema or even significant JVD. She is currently asymptomatic resting comfortably in bed. Given her other medical problems, I would treat her conservatively. At this time, I do not have any additional recommendations. Please feel free to call with any further questions. I will sign off at this time. Thank you again for the opportunity to participate in this patient's care. MD ART Wright/DUARTE /7:40 AM /8:01 AM
[2017-05-30] MEDS: PANTOPRAZOLE SOD 40 MG DELAYED RELEASE TAB PO SCH (08:50)
[2017-05-30] MEDS: ASPIRIN 325 MG TAB PO SCH (08:50)
[2017-05-30] MEDS: METOPROLOL SUCCINATE 50 MG EXTENDED RELEASE TAB PO SCH (08:51)
[2017-05-30] MEDS: SODIUM CHLORIDE 0.9% FLUSH 10 ML FLUSH IV FLUSH SCH (09:00)
[2017-05-30] MEDS: DOCUSATE SODIUM 50 MG/SENNA 8.6 MG TAB PO SCH (09:00)
[2017-05-30] MEDS ORDERED: AUGM875T3 PO (10:18)
--- NOTE | 2017-05-30 10:21 | HHI.FF ---
Face to Face Verification Diagnosis: (1) Cellulitis Occupational Therapy Order: Evaluate and Treat Instructions: lymphedema Header Setup Operator Order: To Evaluate: Living conditions/environment Order: To Provide: Long range planning I have seen patient Roberta Noel on 05/30/17. My clinical findings support the need for the requested home health care services because: Ltd mobility - disease progression Limited ability to care for self Impaired cognition/judgement I certify that my clinical findings support that this patient is homebound because: Impaired cognitive ability/safety Bozena Taveras MD May 30, 2017 10:21
--- NOTE | 2017-05-30 10:23 | HHI.DS ---
Discharge Summary Admission Date May 28, 2017 at 03:07 Discharge Date: May 30, 2017 Admitting Diagnosis R upper extremity cellulitis (1) Sepsis ICD Code: A41.9 (2) Cellulitis of right arm ICD Code: L03.113 (3) Cardiac murmur ICD Code: R01.1 (4) Tricuspid regurgitation ICD Code: I07.1 Procedures none Brief History - From Admission Written by Tate Duque, acting as scribe for Dr. Taveras on 05/28/17 at 11: 14. Was 72-year-old female with known history of dementia, breast cancer status post mastectomy, chronic lymphedema in the right upper extremity, hypertension, coronary artery disease who presented to hospital because of recurrent erythema of the right upper extremity. The patient was just recently admitted the hospital and treated for same cellulitis from May 06, 2017July 2016. During the stay the patient was treated with antibiotics with improvement, evaluated by infectious disease. Patient improved and was discharged home on Keflex. Patient was instructed to follow-up with infectious disease as well as counseled on lymphedema clinic. The patient was discharged on her last visit and it was indicated by her that she did not return to her normal mentation until 7 days after being home. They did follow-up with her primary medical doctor Dr. Cota, however did not follow-up with infectious disease doctor or get evaluated by the lymphedema clinic. She was doing well up until 9:30 last night when her noticed that she was getting more listless. Her helped her to bed and when he took off her compression sleeve he noticed a 1 inch area of erythema at the bicep region. Approximately 1 hour later she came more listless, more confused and then he noticed that her whole arm became red. Because of that he came to the hospital for evaluation. In the ER the patient was found to have febrile illness, leukocytosis and cellulitis representing sepsis. Patient was requested admission. They do not indicate that she experienced any nausea, vomiting, fever, chills, abdominal pain, cough, congestion at home. Did have one episode of nausea in the emergency department. CBC/BMP: 05/29/17 1010 05/29/17 1010 Significant Findings Laboratory Tests Test 05/28/17 05/29/17 01:50 10:10 White Blood Count 19.3 TH/MM3 (4.0-11.0) Neutrophils (%) (Auto) 88.7 % 73.9 % (16.0-70.0) (16.0-70.0) Lymphocytes (%) (Auto) 2.8 % (9.0-44.0) Basophils (%) (Auto) 3.5 % (0.0-2.0) Neutrophils # (Auto) 17.2 TH/MM3 (1.8-7.7) Lymphocytes # (Auto) 0.5 TH/MM3 (1.0-4.8) Basophils # (Auto) 0.7 TH/MM3 (0-0.2) Neutrophils % (Manual) 94 % (16-70) Lymphocytes % 1 % (9-44) Neutrophils # (Manual) 18.1 TH/MM3 (1.8-7.7) Platelet Morphology Comment CLUMPED (NORMAL) Sodium Level 133 MEQ/L (136-145) Potassium Level 3.2 MEQ/L (3.5-5.1) Blood Urea Nitrogen 21 MG/DL (7-18) Estimat Glomerular Filtration 71 ML/MIN (>89) 76 ML/MIN (>89) Rate Random Glucose 156 MG/DL (74-106) Monocytes (%) (Auto) 10.6 % (0.0-8.0) Monocytes # (Auto) 1.0 TH/MM3 (0-0.9) Aspartate Amino Transf 39 U/L (15-37) (AST/SGOT) Alanine Aminotransferase 62 U/L (10-53) (ALT/SGPT) Albumin 3.0 GM/DL (3.4-5.0) PE at Discharge GENERAL: This is a well-nourished, well-developed patient, in no apparent distress. CARDIOVASCULAR: Regular rate and rhythm with 3/6 holosystolic murmurs, gallops, or rubs. RESPIRATORY: Clear to auscultation. Breath sounds equal bilaterally. No wheezes , rales, or rhonchi. GASTROINTESTINAL: Abdomen soft, non-tender, nondistended. Normal active bowel sounds MUSCULOSKELETAL: Extremities without clubbing, cyanosis, or edema. NEURO: Alert & Oriented x4 to person, place, time, situation. Moves all ext x4 Pt update on day of discharge Patient doing well today. Right upper extremity inflammation is greatly improved. Patient back to her baseline mentally. Hospital Course Patient has been seen and treated again for the right upper extremity lymphedema and cellulitis. Antibiotics seem to be very helpful for her. Patient also was evaluated for her murmur which is found be tricuspid regurgitation. Patient is asymptomatic from that no further intervention is necessary. Patient will continue with oral antibiotic therapy as well as outpatient chemotherapy. This discussed with patient and spouse. Pt Condition on Discharge: Good Discharge Disposition: Disch w/ Home Health Serv Discharge Time: <= 30 minutes Discharge Instructions Follow up Referrals: PCP Follow-up - 1 Week New Medications: Amoxicillin-Clavulanate (Augmentin) 875-125 Mg Tab 1 TAB PO BID Infection #10 Ref 0 TAB Continued Medications: Aspirin (Aspirin) 325 Mg Tab 325 MG PO DAILY #30 Ref 0 TAB Atorvastatin (Atorvastatin) 20 Mg Tab 20 MG PO HS Cholesterol Management #30 Ref 0 TAB Cobalamine Combinations (B-12) 100-5,000 Mcg Subl 1000 MCG PO DAILY #1 Ref 0 TAB.SL Docusate Sodium (Stool Softener) 100 Mg Cap BID Esomeprazole DR (Nexium) 40 Mg Capdr 40 MG PO DAILY Ref 0 CAP Hydrochlorothiazide (Hydrochlorothiazide) 12.5 Mg Cap 12.5 MG PO DAILY #30 Ref 0 CAP Letrozole (Letrozole) 2.5 Mg Tab PO DAILY Metoprolol Succinate ER 24 HR (Metoprolol Succinate ER 24 HR) 50 Mg Tab 50 MG PO DAILY #30 Ref 0 TAB ([Eucerin Cream]) 120 APPLIC/120 GM CR 1 APPLIC TOPICAL BID skin Days 90 Bozena Stewart MD May 30, 2017 10:23
== END 2017-05-30 10:55 | disposition home health service (06) | DRG 872 ==
LOC: PHED 01:06 → PHEDA 03:07 → PH3B 04:24
PROVIDERS: ADMIT Hospitalist; ATTEND Hospitalist
DX: A41.9 Sepsis, unspecified organism (principal); I07.1 Rheumatic tricuspid insufficiency; F01.50 Vascular dementia, unspecified severity, without behavioral disturbance, psychotic disturbance, mood disturbance, and anxiety; L03.113 Cellulitis of right upper limb; I10 Essential (primary) hypertension; I97.2 Postmastectomy lymphedema syndrome; Y83.8 Other surgical procedures as the cause of abnormal reaction of the patient, or of later complication, without mention of misadventure at the time of the procedure; M19.90 Unspecified osteoarthritis, unspecified site; K21.9 Gastro-esophageal reflux disease without esophagitis; E87.6 Hypokalemia; I25.10 Atherosclerotic heart disease of native coronary artery without angina pectoris; Z96.651 Presence of right artificial knee joint; Z96.641 Presence of right artificial hip joint; Z85.3 Personal history of malignant neoplasm of breast; Z92.3 Personal history of irradiation; Z86.73 Personal history of transient ischemic attack (TIA), and cerebral infarction without residual deficits; Z87.891 Personal history of nicotine dependence
CPT/HCPCS: 76937; 80048; 80053; 83605; 85007; 85025; 85027; 87040; 93306; 96365; J2543; J7030